=== PATIENT | male | born 1980 | race Caucasian/White ===

== ENCOUNTER 2017-01-11 12:24 | Inpatient (IN) | payer OTHER ==
[2017-01-11 13:24] VITALS: BMI 30.9
--- NOTE | 2017-01-11 14:29 | HP ---
CIWA Score - CIWA Score Nausea/Vomitin-No Nausea/No Vomiting Muscle Tremors: 4-Moderate,w/Arms Extend Anxiety: 3 Agitation: 4-Moderately Restless Paroxysmal Sweats: 3 Orientation: 0-Oriented Tacttile Disturbances: 0-None Auditory Disturbances: 0-None Visual Disturbances: 0-None Headache: 1-Very Mild CIWA-Ar Total Score: 15 Admission ROS BHS - HPI Chief Complaint: I need to detox off the benzodiazapine. Allergies/Adverse Reactions: Allergies Allergy/AdvReac Type Severity Reaction Status Date / Time No Known Allergies Allergy Verified 01/11/17 13:37 History of Present Illness: pt is a 36yr old male with a history of benzodiazapine dependence seeking detox for treatment. pt is on a mmtp program received 100mg today; pending verification. Exam Limitations: No Limitations - Ebola screening Have you traveled outside of the country in the last 21 days: No Have you had contact with anyone from an Ebola affected area: No Have you been sick,other than usual withdrawal symptoms: No Do you have a fever: No - Review of Systems Constitutional: Diaphoresis, Loss of Appetite, Night Sweats, Changes in sleep EENT: reports: Tearing Respiratory: reports: No Symptoms reported Cardiac: reports: No Symptoms Reported GI: reports: Poor Appetite, Poor Fluid Intake : reports: No Symptoms Reported Musculoskeletal: reports: No Symptoms Reported Integumentary: reports: Flushing, Sweating Neuro: reports: Tingling, Tremors Endocrine: reports: Excessive Sweating, Flushing, Intolerance to Cold, Intolerance to Heat Hematology: reports: No Symptoms Reported Psychiatric: reports: Judgement Intact, Mood/Affect Appropiate, Orientated x3, Agitated, Anxious Other Systems: Reviewed and Negative Patient History - Patient Medical History Hx Anemia: No Hx Asthma: Yes Hx Chronic Obstructive Pulmonary Disease (COPD): No Hx Cancer: No Hx Cardiac Disorders: No Hx Congestive Heart Failure: No Hx Hypertension: No Hx Hypercholesterolemia: No Hx Pacemaker: No HX Cerebrovascular Accident: No Hx Seizures: No Hx Dementia: No Hx Diabetes: Yes (IDDM) Hx Gastrointestinal Disorders: No Hx Liver Disease: No Hx Genitourinary Disorders: No Hx Sexually Transmitted Disorders: No Hx Renal Disease (ESRD): No Hx Thyroid Disease: No Hx Human Immunodeficiency Virus (HIV): No (negative) Hx Hepatitis C: No (negative) Hx Depression: No Hx Suicide Attempt: No (denies) Hx Bipolar Disorder: No Hx Schizophrenia: No Other Medical History: anxiety - Patient Surgical History Past Surgical History: Yes Other Surgical History: L mandible fx in 2006 R cheekbone fx - PPD History Previous Implant?: Yes Documented Results: Negative w/o proof Implanted On Prior R Admission?: No Date: 07/09/15 PPD to be Administered?: Yes - Reproductive History Patient is a Female of Child Bearing Age (11 -55 yrs old): No - Smoking Cessation Smoking history: Never smoked Have you smoked in the past 12 months: No Hx Chewing Tobacco Use: No Initiated information on smoking cessation: No - Substance & Tx. History Hx Alcohol Use: No Hx Substance Use: Yes Substance Use Type: Prescribed, Tranquilizers Hx Substance Use Treatment: Yes - Substances Abused Alprazolam (Xanax) Route: Oral Frequency: Daily Amount used: 8mg Age of first use: 25 Date of Last Use: 01/11/17 Family Disease History - Family Disease History Family History: Denies Admission Physical Exam S - Vital Signs Vital Signs: Vital Signs - 24 hr 01/11/17 13:22 Temperature 96.4 F L Pulse Rate 102 H Respiratory 19 Rate Blood Pressure 142/91 - Physical General Appearance: Yes: Appropriately Dressed, Moderate Distress, Tremorous, Irritable, Sweating, Anxious HEENTM: Yes: Normal Voice, Rhinorrhea Respiratory: Yes: Lungs Clear, Normal Breath Sounds, No Respiratory Distress Neck: Yes: No masses,lesions,Nodules Breast: Yes: Within Normal Limits Cardiology: Yes: Regular Rhythm, Regular Rate, S1, S2 Abdominal: Yes: Normal Bowel Sounds, Non Tender, Soft Genitourinary: Yes: Within Normal Limits Back: Yes: Normal Inspection Extremities: Yes: Normal Capillary Refill, Normal Inspection, Tremors Neurological: Yes: Fully Oriented, Alert, Normal Response Integumentary: Yes: Normal Color, Diaphoresis Lymphatic: Yes: Within Normal Limits - Diagnostic (1) Methadone maintenance therapy patient Current Visit: Yes Status: Chronic Comment: received dose of 100mg today; pending verification. (2) Sedative, hypnotic or anxiolytic dependence with withdrawal, uncomplicated Current Visit: Yes Status: Chronic (3) Insulin dependent diabetes mellitus Current Visit: Yes Status: Chronic Comment: last BGM 284 Cleared for Admission BHS - Detox or Rehab BHS Level of Care: Medically Managed Detox Regimen/Protocol: Valium [facility] Breath Alcohol Content Breath Alcohol Content: 0 Urine Drug Screen - Results Drug Screen Negative: No Urine Drug Screen Results: BZO-Benzodiazepines, MTD-Methadone
[2017-01-11] MEDS ORDERED: hydrOXYzine PAMOATE 50 MG CAPSULE (FP) PO PRN (14:38)
[2017-01-11] MEDS ORDERED: P-EPHED 60MG/TRIPROLIDI 2.5MG TABLET PO PRN (14:38)
[2017-01-11] MEDS ORDERED: MAGNESIUM HYDROX 2400MG/30ML ORAL SUSPENSION 30 ML CUP PO PRN (14:38)
[2017-01-11] MEDS ORDERED: IBUPROFEN 400 MG TABLET (FP) PO PRN (14:38)
[2017-01-11] MEDS ORDERED: MENTHOL/PHENOL 1 EACH UD MM PRN (14:38)
[2017-01-11] MEDS ORDERED: LOPERAMIDE HCL 2 MG CAPSULE PO PRN (14:38)
[2017-01-11] MEDS ORDERED: guaiFENesin/D-METHORPHAN HB 10 ML UNIT-DOSE CUPS PO PRN (14:38)
[2017-01-11] MEDS ORDERED: MAGNESIUM CITRATE 300 ML BOTTLE PO PRN (14:38)
[2017-01-11] MEDS ORDERED: MAG HYDROX/AL HYDROX/SIMETH 30 ML UNIT-DOSE CUP PO PRN (14:38)
[2017-01-11] MEDS ORDERED: ACETAMINOPHEN 325 MG TABLET (FP) PO PRN (15:11)
[2017-01-11] MEDS ORDERED: diazePAM 5 MG TABLET PO ONE (15:11)
[2017-01-11] MEDS: diazePAM 5 MG TABLET PO SCH ×2 (15:44→22:49)
[2017-01-11] MEDS ORDERED: INSULIN (NOVOLOG) ASPART 100 UNITS/ML 10ML VIAL ONE (16:56)
[2017-01-11] MEDS: INSULIN SLIDING SCALE (NOVOLOG) 1 VIAL SQ SCH (17:07)
--- NOTE | 2017-01-11 17:35 | CONSULT ---
[facility] Psychiatric Consult - Data Date of interview: 01/11/17 Admission source: [facility] Identifying data: Readmission to [facility] for this 36 y/o male seeking detox treatment on for opioid and benzodizepine (xanax) dependence.Patient is without children,domiciled,unemployed and dependent on occasional jobs. Substance Abuse History: - Smoking Cessation. Smoking history: Never smoked. Have you smoked in the past 12 months: No. Hx Chewing Tobacco Use: No. Initiated information on smoking cessation: No. - Substance & Tx. History. Hx Alcohol Use: No. Hx Substance Use: Yes. Substance Use Type: Prescribed, Tranquilizers. Hx Substance Use Treatment: Yes. - Substances Abused. Alprazolam (Xanax). Route: Oral. Frequency: Daily. Amount used: 8mg. Age of first use: 25. Date of Last Use: 01/11/17. Confirmed by patient. Medical History: Insulin-dependent diabetes mellitus,bronchial asthma,and a history of orthosurgery for fracture of left mandible/right cheekbone (2006). Psychiatric History: Patient denies history of psychiatric hospitalizations.Mr Schilling reports the diagnosis of ADHD for which he gets psychostimulat medication (Adderall).He,however,declares his intention to abstain from that drug during his treatment on .Chronic insomnia is endorsed as the most pressing issue and the patient requests seroquel at bedtime (from favorable previous experience with that medication).Mr Schilling is currently on methadone maintenance (100 mg/day).No reported history of suicide attempts. Physical/Sexual Abuse/Trauma History: Patient denies. Additional Comment: Urine Drug Screen Results: BZO-Benzodiazepines, MTD- Methadone.Noted. Mental Status Exam - Mental Status Exam Alert and Oriented to: Time, Place, Person Cognitive Function: Good Patient Appearance: Well Groomed Mood: Hopeful, Euthymic Affect: Appropriate, Normal Range Patient Behavior: Fatigued, Appropriate, Cooperative Speech Pattern: Clear, Appropriate Voice Loudness: Normal Thought Process: Intact, Goal Oriented Thought Disorder: Not Present Hallucinations: Denies Suicidal Ideation: Denies Homicidal Ideation: Denies Insight/Judgement: Poor Sleep: Poorly, Difficulty falling asleep Appetite: Good Muscle strength/Tone: Normal Gait/Station: Normal Psychiatric Findings - Problem List ([place] 1, 2,3) (1) Sedative, hypnotic or anxiolytic dependence with withdrawal, uncomplicated Current Visit: Yes Status: Acute (2) Opioid dependence on agonist therapy Current Visit: Yes Status: Acute (3) Substance induced mood disorder Current Visit: Yes Status: Acute (4) ADHD (attention deficit hyperactivity disorder) Current Visit: Yes Status: Chronic Comment: Self-report.Patient declines to take psychostimulant during this hospital course. (5) Insulin dependent diabetes mellitus Current Visit: Yes Status: Chronic Comment: last BGM 284 (6) Insomnia Current Visit: Yes Status: Acute - Initial Treatment Plan Initial Treatment Plan: Psychoeducation.Detoxification.Seroquel 100 mg po hs.Side effects/benefits discussed with the patient.He agrees with this careplan.Observation.
[2017-01-11] MEDS: HYDROCORTISONE 1% TOPICAL CREAM 30 GM TUBE TP SCH ×2 (18:18→22:48)
[2017-01-11 19:27] LABS: URINE APPEARANCE CLEAR; URINE BILIRUBIN NEGATIVE (NEGATIVE); URINE BLOOD NEGATIVE (NEGATIVE); URINE COLOR AMBER; URINE GLUCOSE (UA) 3+ (NEGATIVE); URINE KETONE TRACE (NEGATIVE); URINE NITRITE NEGATIVE (NEGATIVE); URINE PROTEIN NEGATIVE (NEGATIVE); URINE UROBILINOGEN 2.0 E.U/dl E.U./dl (0.2-1.0)
[2017-01-11 19:29] LABS: URINE LEUK ESTERASE TRACE (NEGATIVE)
[2017-01-11] MEDS: THIAMINE HCL 100 MG TABLET (FP) PO SCH (22:48)
[2017-01-11] MEDS: QUEtiapine FUMARATE 100 MG TABLET (FP) PO SCH (22:49)
[2017-01-11] MEDS: diphenhydrAMINE HCL 50 MG CAPSULE PO PRN (22:50)
[2017-01-12] MEDS: diazePAM 5 MG TABLET PO SCH ×3 (05:40→23:02)
[2017-01-12] MEDS ORDERED: INSULIN (NOVOLOG) ASPART 100 UNITS/ML 10ML VIAL ONE ×2 (06:28→11:11)
[2017-01-12] MEDS: INSULIN SLIDING SCALE (NOVOLOG) 1 VIAL SQ SCH ×3 (07:27→16:56)
[2017-01-12] MEDS: INSULIN DETEMIR 100 UNITS/ML MDV SQ SCH (07:27)
[2017-01-12] MEDS ORDERED: METHADONE HCL 10 MG TABLET PO SCH (08:30)
[2017-01-12] MEDS ORDERED: METHADONE HCL 40 MG DISPERSABLE TABLET ONE (08:42)
[2017-01-12] MEDS ORDERED: METHADONE HCL 10 MG TABLET ONE (08:42)
[2017-01-12] MEDS: METHADONE 80 MG, METHADONE 20 MG PO SCH (08:44)
[2017-01-12 10:11] LABS: MCH 30.6 pg (25.7-33.7); MCHC 32.7 g/dl (32.0-35.9); MEAN CELL VOLUME 93.5 fl (80-96); MEAN PLT VOLUME 11.5 fl (7.5-11.1); PLATELET COUNT 180 K/MM3 (134-434); RDW 16.6 % (11.9-15.9); WHITE BLOOD COUNT 9.1 K/mm3 (4.0-10.0)
[2017-01-12 10:38] LABS: ALBUMIN 3.9 g/dl (3.4-5.0); ALK PHOS 65 U/L (45-117); ANION GAP 9 (8-16); BILIRUBIN,TOTAL 0.7 mg/dL (0.2-1.0); CALCIUM 8.9 mg/dL (8.5-10.1); CO2 31 mmol/L (21-32); CREATININE 1.1 mg/dL (0.7-1.3); GLUCOSE,RANDOM 221 mg/dL (74-106); SGOT/AST 15 U/L (15-37); SGPT/ALT 24 U/L (12-78); TOT PROT 6.9 g/dl (6.4-8.2)
[2017-01-12] MEDS: HYDROCORTISONE 1% TOPICAL CREAM 30 GM TUBE TP SCH ×4 (10:55→23:01)
[2017-01-12] MEDS: PRENATAL VITAMINS W/ FOLIC ACID TABLET (FP) PO SCH (10:55)
[2017-01-12] MEDS: diazePAM 5 MG TABLET PO PRN (10:56)
--- NOTE | 2017-01-12 13:41 | PN ---
S CIWA - CIWA Score Nausea/Vomitin-No Nausea/No Vomiting Muscle Tremors: 4-Moderate,w/Arms Extend Anxiety: 4-Mod. Anxious/Guarded Agitation: 3 Paroxysmal Sweats: 3 Orientation: 0-Oriented Tacttile Disturbances: 0-None Auditory Disturbances: 0-None Visual Disturbances: 0-None Headache: 0-None Present CIWA-Ar Total Score: 14 BHS Progress Note (SOAP) Subjective: Anxiety,tremors,sweating,interrupted sleep,restless Objective: 01/12/17 13:39 Vital Signs - 8 hr 01/12/17 01/12/17 06:50 10:25 Temperature 96.1 F L 96.6 F L Pulse Rate 92 H 89 Respiratory 18 20 Rate Blood Pressure 140/86 136/88 Laboratory Tests 01/11/17 01/11/17 01/11/17 13:48 14:00 16:29 WBC RBC Hgb Hct MCV MCHC RDW Plt Count MPV Sodium Potassium Chloride Carbon Dioxide Anion Gap BUN Creatinine Creat Clearance w eGFR POC Glucometer 284 303 Random Glucose Calcium Total Bilirubin AST ALT Alkaline Phosphatase Total Protein Albumin Urine Color Jaki Urine Appearance Clear Urine pH 5.0 Ur Specific [place] 1.030 Urine Protein Negative Urine Glucose (UA) 3+ H Urine Ketones Trace H Urine Blood Negative Urine Nitrite Negative Urine Bilirubin Negative Urine Urobilinogen 2.0 e.u/dl Ur Leukocyte Esterase Trace H RPR Titer 01/12/17 01/12/17 01/12/17 05:43 06:00 06:00 WBC 9.1 RBC 4.99 Hgb 15.3 D Hct 46.7 MCV 93.5 MCHC 32.7 RDW 16.6 H D Plt Count 180 D MPV 11.5 H D Sodium 139 Potassium 4.1 Chloride 99 Carbon Dioxide 31 Anion Gap 9 BUN 11 D Creatinine 1.1 D Creat Clearance w eGFR > 60 POC Glucometer 155 Random Glucose 221 H Calcium 8.9 Total Bilirubin 0.7 D AST 15 D ALT 24 Alkaline Phosphatase 65 D Total Protein 6.9 Albumin 3.9 D Urine Color Urine Appearance Urine pH Ur Specific [place] Urine Protein Urine Glucose (UA) Urine Ketones Urine Blood Urine Nitrite Urine Bilirubin Urine Urobilinogen Ur Leukocyte Esterase RPR Titer 01/12/17 01/12/17 06:00 11:08 WBC RBC Hgb Hct MCV MCHC RDW Plt Count MPV Sodium Potassium Chloride Carbon Dioxide Anion Gap BUN Creatinine Creat Clearance w eGFR POC Glucometer 162 Random Glucose Calcium Total Bilirubin AST ALT Alkaline Phosphatase Total Protein Albumin Urine Color Urine Appearance Urine pH Ur Specific [place] Urine Protein Urine Glucose (UA) Urine Ketones Urine Blood Urine Nitrite Urine Bilirubin Urine Urobilinogen Ur Leukocyte Esterase RPR Titer Nonreactive labs noted Assessment: 01/12/17 13:40 withdrawal sx. Plan: continue detox
--- NOTE | 2017-01-12 16:19 | EKG ---
Test Reason : Blood Pressure : / mmHG Vent. Rate : 078 BPM Atrial Rate : 078 BPM P-R Int : 138 ms QRS Dur : 098 ms QT Int : 374 ms P-R-T Axes : 069 013 048 degrees QTc Int : 426 ms NORMAL SINUS RHYTHM NORMAL ECG NO PREVIOUS ECGS AVAILABLE Confirmed by EDGAR CEBALLOS MD ([id number]) on 01/12/2017 4:18:43 PM Referred By: Confirmed By:EDGAR CEBALLOS MD
[2017-01-12] MEDS: THIAMINE HCL 100 MG TABLET (FP) PO SCH (23:01)
[2017-01-12] MEDS: QUEtiapine FUMARATE 100 MG TABLET (FP) PO SCH (23:02)
[2017-01-12] MEDS: diphenhydrAMINE HCL 50 MG CAPSULE PO PRN (23:02)
[2017-01-13] MEDS ORDERED: METHADONE HCL 10 MG TABLET ONE (01:24)
[2017-01-13] MEDS ORDERED: METHADONE HCL 40 MG DISPERSABLE TABLET ONE (01:24)
[2017-01-13] MEDS: METHADONE 80 MG, METHADONE 20 MG PO SCH (05:24)
[2017-01-13] MEDS: INSULIN SLIDING SCALE (NOVOLOG) 1 VIAL SQ SCH ×3 (07:53→17:04)
[2017-01-13] MEDS: INSULIN DETEMIR 100 UNITS/ML MDV SQ SCH (07:53)
[2017-01-13] MEDS: diazePAM 5 MG TABLET PO SCH ×2 (10:40→22:50)
[2017-01-13] MEDS: PRENATAL VITAMINS W/ FOLIC ACID TABLET (FP) PO SCH (10:40)
[2017-01-13] MEDS: HYDROCORTISONE 1% TOPICAL CREAM 30 GM TUBE TP SCH ×4 (10:40→22:50)
[2017-01-13] MEDS ORDERED: INSULIN (NOVOLOG) ASPART 100 UNITS/ML 10ML VIAL ONE ×2 (11:13→16:53)
--- NOTE | 2017-01-13 12:14 | PN ---
[facility] CIWA - CIWA Score Nausea/Vomitin-No Nausea/No Vomiting Muscle Tremors: 4-Moderate,w/Arms Extend Anxiety: 4-Mod. Anxious/Guarded Agitation: 4-Moderately Restless Paroxysmal Sweats: 1-Minimal Palms Moist Orientation: 0-Oriented Tacttile Disturbances: 3-Moderate Itch/Numb/Burn Auditory Disturbances: 0-None Visual Disturbances: 0-None Headache: 0-None Present CIWA-Ar Total Score: 16 BHS Progress Note (SOAP) Subjective: ANXIETY,SWEATS, INTERMITTENT SLEEP. Objective: 01/13/17 12:13 Vital Signs Temperature 98.1 F 01/13/17 10:00 Pulse Rate 94 H 01/13/17 10:00 Respiratory Rate 20 01/13/17 10:00 Blood Pressure 133/88 01/13/17 10:00 O2 Sat by Pulse Oximetry (%) Laboratory Last Values WBC 9.1 K/mm3 (4.0-10.0) 01/12/17 06:00 RBC 4.99 M/mm3 (4.00-5.60) 01/12/17 06:00 Hgb 15.3 GM/dL (11.7-16.9) D 01/12/17 06:00 Hct 46.7 % (35.4-49) 01/12/17 06:00 MCV 93.5 fl (80-96) 01/12/17 06:00 MCHC 32.7 g/dl (32.0-35.9) 01/12/17 06:00 RDW 16.6 % (11.9-15.9) H D 01/12/17 06:00 Plt Count 180 K/MM3 (134-434) D 01/12/17 06:00 MPV 11.5 fl (7.5-11.1) H D 01/12/17 06:00 Sodium 139 mmol/L (136-145) 01/12/17 06:00 Potassium 4.1 mmol/L (3.5-5.1) 01/12/17 06:00 Chloride 99 mmol/L (98-107) 01/12/17 06:00 Carbon Dioxide 31 mmol/L (21-32) 01/12/17 06:00 Anion Gap 9 (8-16) 01/12/17 06:00 BUN 11 mg/dL (7-18) D 01/12/17 06:00 Creatinine 1.1 mg/dL (0.7-1.3) D 01/12/17 06:00 Creat Clearance w eGFR > 60 (>60) 01/12/17 06:00 POC Glucometer 282 UNITS (()) 01/13/17 11:11 Random Glucose 221 mg/dL (74-106) H 01/12/17 06:00 Calcium 8.9 mg/dL (8.5-10.1) 01/12/17 06:00 Total Bilirubin 0.7 mg/dL (0.2-1.0) D 01/12/17 06:00 AST 15 U/L (15-37) D 01/12/17 06:00 ALT 24 U/L (12-78) 01/12/17 06:00 Alkaline Phosphatase 65 U/L (45-117) D 01/12/17 06:00 Total Protein 6.9 g/dl (6.4-8.2) 01/12/17 06:00 Albumin 3.9 g/dl (3.4-5.0) D 01/12/17 06:00 Urine Color Jaki 01/11/17 14:00 Urine Appearance Clear 01/11/17 14:00 Urine pH 5.0 (5.0-8.0) 01/11/17 14:00 Ur Specific [place] 1.030 (1.001-1.035) 01/11/17 14:00 Urine Protein Negative (NEGATIVE) 01/11/17 14:00 Urine Glucose (UA) 3+ (NEGATIVE) H 01/11/17 14:00 Urine Ketones Trace (NEGATIVE) H 01/11/17 14:00 Urine Blood Negative (NEGATIVE) 01/11/17 14:00 Urine Nitrite Negative (NEGATIVE) 01/11/17 14:00 Urine Bilirubin Negative (NEGATIVE) 01/11/17 14:00 Urine Urobilinogen 2.0 e.u/dl E.U./dl (0.2-1.0) 01/11/17 14:00 Ur Leukocyte Esterase Trace (NEGATIVE) H 01/11/17 14:00 RPR Titer Nonreactive (NONREACTIVE) 01/12/17 06:00 Assessment: 01/13/17 12:13 WITHDRAWAL SX Plan: CONTINUE DETOX
[2017-01-13] MEDS: QUEtiapine FUMARATE 100 MG TABLET (FP) PO SCH (22:50)
[2017-01-13] MEDS: THIAMINE HCL 100 MG TABLET (FP) PO SCH (22:50)
[2017-01-13] MEDS: diphenhydrAMINE HCL 50 MG CAPSULE PO PRN (22:51)
[2017-01-14] MEDS ORDERED: METHADONE HCL 40 MG DISPERSABLE TABLET ONE (04:30)
[2017-01-14] MEDS ORDERED: METHADONE HCL 10 MG TABLET ONE (04:30)
[2017-01-14] MEDS: diazePAM 5 MG TABLET PO PRN (05:40)
[2017-01-14] MEDS: METHADONE 80 MG, METHADONE 20 MG PO SCH (05:40)
[2017-01-14] MEDS ORDERED: INSULIN (NOVOLOG) ASPART 100 UNITS/ML 10ML VIAL ONE ×3 (07:04→17:19)
[2017-01-14] MEDS: INSULIN DETEMIR 100 UNITS/ML MDV SQ SCH (07:15)
[2017-01-14] MEDS: INSULIN SLIDING SCALE (NOVOLOG) 1 VIAL SQ SCH ×3 (07:16→17:30)
[2017-01-14] MEDS: PRENATAL VITAMINS W/ FOLIC ACID TABLET (FP) PO SCH (10:28)
[2017-01-14] MEDS: diazePAM 5 MG TABLET PO SCH ×2 (10:28→22:53)
[2017-01-14] MEDS: HYDROCORTISONE 1% TOPICAL CREAM 30 GM TUBE TP SCH ×4 (10:29→22:52)
--- NOTE | 2017-01-14 16:40 | PN ---
BHS Progress Note (SOAP) Subjective: Fatigue, Tremors. Objective: PT A & O X 3. 01/14/17 16:38 Vital Signs Temperature 97.2 F L 01/14/17 15:05 Pulse Rate 89 01/14/17 15:05 Respiratory Rate 18 01/14/17 15:05 Blood Pressure 138/90 01/14/17 15:05 O2 Sat by Pulse Oximetry (%) Laboratory Last Values WBC 9.1 K/mm3 (4.0-10.0) 01/12/17 06:00 RBC 4.99 M/mm3 (4.00-5.60) 01/12/17 06:00 Hgb 15.3 GM/dL (11.7-16.9) D 01/12/17 06:00 Hct 46.7 % (35.4-49) 01/12/17 06:00 MCV 93.5 fl (80-96) 01/12/17 06:00 MCHC 32.7 g/dl (32.0-35.9) 01/12/17 06:00 RDW 16.6 % (11.9-15.9) H D 01/12/17 06:00 Plt Count 180 K/MM3 (134-434) D 01/12/17 06:00 MPV 11.5 fl (7.5-11.1) H D 01/12/17 06:00 Sodium 139 mmol/L (136-145) 01/12/17 06:00 Potassium 4.1 mmol/L (3.5-5.1) 01/12/17 06:00 Chloride 99 mmol/L (98-107) 01/12/17 06:00 Carbon Dioxide 31 mmol/L (21-32) 01/12/17 06:00 Anion Gap 9 (8-16) 01/12/17 06:00 BUN 11 mg/dL (7-18) D 01/12/17 06:00 Creatinine 1.1 mg/dL (0.7-1.3) D 01/12/17 06:00 Creat Clearance w eGFR > 60 (>60) 01/12/17 06:00 POC Glucometer 258 UNITS (()) 01/14/17 11:41 Random Glucose 221 mg/dL (74-106) H 01/12/17 06:00 Calcium 8.9 mg/dL (8.5-10.1) 01/12/17 06:00 Total Bilirubin 0.7 mg/dL (0.2-1.0) D 01/12/17 06:00 AST 15 U/L (15-37) D 01/12/17 06:00 ALT 24 U/L (12-78) 01/12/17 06:00 Alkaline Phosphatase 65 U/L (45-117) D 01/12/17 06:00 Total Protein 6.9 g/dl (6.4-8.2) 01/12/17 06:00 Albumin 3.9 g/dl (3.4-5.0) D 01/12/17 06:00 Urine Color Jaki 01/11/17 14:00 Urine Appearance Clear 01/11/17 14:00 Urine pH 5.0 (5.0-8.0) 01/11/17 14:00 Ur Specific [place] 1.030 (1.001-1.035) 01/11/17 14:00 Urine Protein Negative (NEGATIVE) 01/11/17 14:00 Urine Glucose (UA) 3+ (NEGATIVE) H 01/11/17 14:00 Urine Ketones Trace (NEGATIVE) H 01/11/17 14:00 Urine Blood Negative (NEGATIVE) 01/11/17 14:00 Urine Nitrite Negative (NEGATIVE) 01/11/17 14:00 Urine Bilirubin Negative (NEGATIVE) 01/11/17 14:00 Urine Urobilinogen 2.0 e.u/dl E.U./dl (0.2-1.0) 01/11/17 14:00 Ur Leukocyte Esterase Trace (NEGATIVE) H 01/11/17 14:00 RPR Titer Nonreactive (NONREACTIVE) 01/12/17 06:00 LABS NOTED. Assessment: 01/14/17 16:39 WITHDRAWAL SYMPTOMS. Plan: CONTINUE DETOX. ADVISED PT. TO FOLLOW-UP WITH ASSOCIATE PROPERTY MANAGER / REHAB MEDICAL PROVIDER AFTER DISCHARGE FROM DETOX FOR GENERAL MEDICAL ASSESSMENT AND FOR ABNORMAL LAB VALUES.
[2017-01-14] MEDS ORDERED: QUEtiapine FUMARATE 50 MG TABLET ONE (21:36)
[2017-01-14] MEDS: THIAMINE HCL 100 MG TABLET (FP) PO SCH (22:52)
[2017-01-14] MEDS: diphenhydrAMINE HCL 50 MG CAPSULE PO PRN (22:53)
[2017-01-14] MEDS: QUEtiapine FUMARATE 100 MG TABLET (FP) PO SCH (22:53)
[2017-01-15] MEDS ORDERED: METHADONE HCL 10 MG TABLET ONE (04:53)
[2017-01-15] MEDS ORDERED: METHADONE HCL 40 MG DISPERSABLE TABLET ONE (04:53)
[2017-01-15] MEDS: METHADONE 80 MG, METHADONE 20 MG PO SCH (05:14)
[2017-01-15] MEDS ORDERED: INSULIN (NOVOLOG) ASPART 100 UNITS/ML 10ML VIAL ONE (06:29)
[2017-01-15 06:35] VITALS: BP 112/84; PULSE 95; TEMP 97.9
[2017-01-15] MEDS: INSULIN SLIDING SCALE (NOVOLOG) 1 VIAL SQ SCH (07:56)
[2017-01-15] MEDS: INSULIN DETEMIR 100 UNITS/ML MDV SQ SCH (07:56)
--- NOTE | 2017-01-15 08:45 | DS ---
[facility] Detox Discharge Summary Admission Date: 01/11/17 Discharge Date: 01/15/17 - History Present History: Sedative Dependence, MMTP Pertinent Past History: IDDM ADHD - Physical Exam Results Vital Signs: Vital Signs Temperature 97.9 F 01/15/17 06:34 Pulse Rate 95 H 01/15/17 06:34 Respiratory Rate 18 01/15/17 06:34 Blood Pressure 112/84 01/15/17 06:34 O2 Sat by Pulse Oximetry (%) Pertinent Admission Physical Exam Findings: Withdrawal sx. Laboratory Last Values WBC 9.1 K/mm3 (4.0-10.0) 01/12/17 06:00 RBC 4.99 M/mm3 (4.00-5.60) 01/12/17 06:00 Hgb 15.3 GM/dL (11.7-16.9) D 01/12/17 06:00 Hct 46.7 % (35.4-49) 01/12/17 06:00 MCV 93.5 fl (80-96) 01/12/17 06:00 MCHC 32.7 g/dl (32.0-35.9) 01/12/17 06:00 RDW 16.6 % (11.9-15.9) H D 01/12/17 06:00 Plt Count 180 K/MM3 (134-434) D 01/12/17 06:00 MPV 11.5 fl (7.5-11.1) H D 01/12/17 06:00 Sodium 139 mmol/L (136-145) 01/12/17 06:00 Potassium 4.1 mmol/L (3.5-5.1) 01/12/17 06:00 Chloride 99 mmol/L (98-107) 01/12/17 06:00 Carbon Dioxide 31 mmol/L (21-32) 01/12/17 06:00 Anion Gap 9 (8-16) 01/12/17 06:00 BUN 11 mg/dL (7-18) D 01/12/17 06:00 Creatinine 1.1 mg/dL (0.7-1.3) D 01/12/17 06:00 Creat Clearance w eGFR > 60 (>60) 01/12/17 06:00 POC Glucometer 162 UNITS (()) 01/15/17 05:16 Random Glucose 221 mg/dL (74-106) H 01/12/17 06:00 Calcium 8.9 mg/dL (8.5-10.1) 01/12/17 06:00 Total Bilirubin 0.7 mg/dL (0.2-1.0) D 01/12/17 06:00 AST 15 U/L (15-37) D 01/12/17 06:00 ALT 24 U/L (12-78) 01/12/17 06:00 Alkaline Phosphatase 65 U/L (45-117) D 01/12/17 06:00 Total Protein 6.9 g/dl (6.4-8.2) 01/12/17 06:00 Albumin 3.9 g/dl (3.4-5.0) D 01/12/17 06:00 Urine Color Jaki 01/11/17 14:00 Urine Appearance Clear 01/11/17 14:00 Urine pH 5.0 (5.0-8.0) 01/11/17 14:00 Ur Specific [place] 1.030 (1.001-1.035) 01/11/17 14:00 Urine Protein Negative (NEGATIVE) 01/11/17 14:00 Urine Glucose (UA) 3+ (NEGATIVE) H 01/11/17 14:00 Urine Ketones Trace (NEGATIVE) H 01/11/17 14:00 Urine Blood Negative (NEGATIVE) 01/11/17 14:00 Urine Nitrite Negative (NEGATIVE) 01/11/17 14:00 Urine Bilirubin Negative (NEGATIVE) 01/11/17 14:00 Urine Urobilinogen 2.0 e.u/dl E.U./dl (0.2-1.0) 01/11/17 14:00 Ur Leukocyte Esterase Trace (NEGATIVE) H 01/11/17 14:00 RPR Titer Nonreactive (NONREACTIVE) 01/12/17 06:00 labs noted - Treatment Hospital Course: Detox Protocol Followed, Detoxed Safely, Responded well, Discharged Condition Good, Rehab Referral Accepted - Medication Discharge Medications: Ambulatory Orders Insulin Glargine,Hum.rec.anlog [Lantus Solostar PEN (NF)] 40 units SQ AM Insulin Lispro [Humalog] 10 unit SQ AC 07/07/15 - Diagnosis (1) Opioid dependence on agonist therapy Current Visit: Yes Status: Acute (2) Sedative, hypnotic or anxiolytic dependence with withdrawal, uncomplicated Current Visit: Yes Status: Acute (3) Substance induced mood disorder Current Visit: Yes Status: Acute (4) ADHD (attention deficit hyperactivity disorder) Current Visit: Yes Status: Chronic (5) Insulin dependent diabetes mellitus Current Visit: Yes Status: Chronic - AMA Did Patient Leave Against Medical Advice: No
[2017-01-15] MEDS ORDERED: diazePAM 5 MG TABLET PO SCH (10:00)
[2017-01-15] MEDS: HYDROCORTISONE 1% TOPICAL CREAM 30 GM TUBE TP SCH (11:42)
[2017-01-15] MEDS: PRENATAL VITAMINS W/ FOLIC ACID TABLET (FP) PO SCH (11:42)
== END 2017-01-15 09:55 | disposition home or self-care (01) | DRG 773 ==
LOC: YASAS 12:24 → Y3N 14:36
PROVIDERS: ADMIT Internal Medicine; ATTEND Internal Medicine
PROC: HZ2ZZZZ Detoxification Services for Substance Abuse Treatment (ICD-10-PCS; principal; 2017-01-15)
DX: F11.23 Opioid dependence with withdrawal (principal); F13.20 Sedative, hypnotic or anxiolytic dependence, uncomplicated; F19.24 Other psychoactive substance dependence with psychoactive substance-induced mood disorder; F90.9 Attention-deficit hyperactivity disorder, unspecified type; G47.00 Insomnia, unspecified; E10.9 Type 1 diabetes mellitus without complications; Z79.4 Long term (current) use of insulin
CPT/HCPCS: 36415; 80053; 81003; 81015; 85027; 86593; 93005; 93010

== ENCOUNTER 2017-09-06 21:43 | Emergency (ER) | payer OTHER ==
[2017-09-06 21:48] VITALS: BP 140/90; PULSE 90; TEMP 97.5; BMI 27.2
--- NOTE | 2017-09-06 22:20 | PDOC ---
History of Present Illness - General Chief Complaint: Pain Stated Complaint: R FOOT PAIN Time Seen by Provider: 09/06/17 21:52 - History of Present Illness Initial Comments: This 37-year-old man presents several hours after turning his right foot while at work. Patient was wearing a construction boot and everted his right foot. He had some pain initially but continued to work. Tonight, pain became much worse and he had trouble bearing weight. No previous history of right or ankle injury. Patient did not fall and injure any area of his body with the initial turning of his foot/ankle. He denies paresthesias/numbness. Past History - Past Medical History Allergies/Adverse Reactions: Allergies Allergy/AdvReac Type Severity Reaction Status Date / Time No Known Allergies Allergy Verified 01/11/17 13:37 Home Medications: Ambulatory Orders Insulin Glargine,Hum.rec.anlog [Lantus Solostar PEN (NF)] 40 units SQ AM Insulin Lispro [Humalog] 10 unit SQ AC 07/07/15 Anemia: No Asthma: Yes Cancer: No Cardiac Disorders: No CVA: No COPD: No CHF: No Dementia: No Diabetes: Yes (IDDM) GI Disorders: No Disorders: No HTN: No Hypercholesterolemia: No Kidney Stones: No Liver Disease: No Seizures: No Thyroid Disease: No - Reproductive History Testicular Surgery: No - Suicide/Smoking/Psychosocial Hx Smoking History: Unknown if ever smoked Have you smoked in the past 12 months: No Number of Cigarettes Smoked Daily: 0 Information on smoking cessation initiated: No Hx Alcohol Use: No Drug/Substance Use Hx: No Substance Use Type: Prescribed, Tranquilizers Hx Substance Use Treatment: Yes Trauma Specific PMHX - Complaint Specific PMHX Arthritis: No Review of Systems - Review of Systems Able to Perform ROS?: Yes Comments:: GENERAL: HEAD: Normal with no signs of trauma. EYES: PERRLA, EOMI, sclera anicteric, conjunctiva clear. ENT: Ears normal, nares patent, oropharynx clear without exudates. Dry mucous membranes. NECK: Normal range of motion, supple without lymphadenopathy, JVD, or masses. LUNGS: Breath sounds equal, clear to auscultation bilaterally. No wheezes, and no crackles. HEART:Regular rate and rhythm, normal S1 and S2 without murmur, rub or gallop. ABDOMEN:.normal bowel sounds No guarding,tenderness or rebound.No masses No distention. EXTREMITIES: Right lower extremitymoderate edema/moderate tenderness mid lateral dorsal aspect of foot. No deformity seen Faint ecchymosis seen at the plantar surface; distal neurovascular functioning intact Strongly palpable pulse at midfoot; ankle nontender/nonedematous Remainder of the extremity exam is normal NEUROLOGICAL: Cranial nerves II through XII grossly intact. Normal speech. No focal neurological deficits. MUSCULOSKELETAL: Back non-tender to palpation, no CVA tenderness SKIN: Warm, Dry, normal turgor, no rashes or lesions noted. *Physical Exam - Vital Signs Last Vital Signs Temp Pulse Resp BP Pulse Ox 97.5 F L 90 14 140/90 99 09/06/17 21:45 09/06/17 21:45 09/06/17 21:45 09/06/17 21:45 09/06/17 21:45 ED Treatment Course - RADIOLOGY Radiology Studies Ordered: Category Date Time Status FOOT-RIGHT [RAD] Stat Radiology 09/06/17 22:00 Taken Progress Note - Progress Note Progress Note: Right foot x-ray shows nondisplaced horizontal fracture of the base of the fifth metatarsal consistent with Ayala fracture. Using Ortho-Glass material, short leg posterior splint fashioned and secured with Laz wraps. Neurovascular functioning intact after placement of the splint. Patient given crutches and crutch walking instruction given. Patient does not have an orthopedist. Maryam aldrich on-call: Referral information given to the patient. Patient does not want any nonsteroidal anti- inflammatories or analgesics. He should elevate the right leg as much as possible. Patient given work documentation: No work until seen by orthopedist. *DC/Admit/Observation/Transfer Diagnosis at time of Disposition: Fracture of fifth metatarsal bone of right foot Qualifiers: Encounter type: initial encounter Fracture type: closed Fracture alignment: nondisplaced Qualified Code(s): S92.354A - Nondisplaced fracture of fifth metatarsal bone, right foot, initial encounter for closed fracture - Discharge Dispostion Disposition: HOME Condition at time of disposition: Stable - Referrals Referrals: Richy Francisco MD [Staff Physician] - Call tomorrow - Patient Instructions Printed Discharge Instructions: Foot Fracture Additional Instructions: Keep splint in place Elevate foot (heart level or above) as much as possible Crutches for ambulation until seen by orthopedist Call [facility] group in AM to arrange follow-up within the next 2 days - Post Discharge Activity Forms/Work/School Notes: Back to Work
== END 2017-09-06 22:49 | disposition home or self-care (01) ==
LOC: FER 21:43
DX: S92.354A Nondisplaced fracture of fifth metatarsal bone, right foot, initial encounter for closed fracture (principal); X58.XXXA Exposure to other specified factors, initial encounter; Y93.89 Activity, other specified; Y92.9 Unspecified place or not applicable; Z79.4 Long term (current) use of insulin; E11.9 Type 2 diabetes mellitus without complications
CPT/HCPCS: 73630-TC-RT; 99282-25

== ENCOUNTER 2018-01-04 16:47 | Emergency (ER) | payer OTHER ==
--- NOTE | 2018-01-04 16:55 | PDOC ---
History of Present Illness - General History Source: Patient Exam Limitations: No Limitations - History of Present Illness Initial Comments: 01/04/18 17:07 The patient is a 37 year old male, with a significant past medical history of diabetes(BGL typically in the 200s) and asthma, who presents to the emergency department complaining of left greater toe pain, swelling, and erythema s/p stubbing his toe on a door approximately 2 weeks ago. Patient reports cutting his left greater toe 2 weeks ago, however, over the past 3 days he notes increased pain and swelling to the area. Two days ago, the patient reports he developed associated erythema to the dorsal aspect of the left greater toe. Patient reports a recent injury to his right foot several weeks ago, and states he had been applying a lot of pressure to his left toes. Patient reports visiting his PCP today out of concern of an infection to his toe, who suggested the patient come to the ED for further evaluation. Patient denies any associated fever or chills. He denies any nausea or vomiting. He denies any chest pain, shortness of breath, diaphoresis, or palpitations. Allergies: NKDA Past Surgical History: None reported Social History: Non smoker. No ETOH or recreational drug use. PCP: Dr. Schrader <Deejay Mcnulty - Last Filed: 01/04/18 17:07> <Attila Morgan - Last Filed: 01/04/18 17:23> - General Chief Complaint: Redness To Affected Area Stated Complaint: LEFT TOE REDNESS Time Seen by Provider: 01/04/18 16:54 Past History <Deejay Mcnulty - Last Filed: 01/04/18 17:07> - Past Medical History Anemia: No Asthma: Yes Cancer: No Cardiac Disorders: No CVA: No COPD: No CHF: No Dementia: No Diabetes: Yes (IDDM) GI Disorders: No Disorders: No HTN: No Hypercholesterolemia: No Kidney Stones: No Liver Disease: No Seizures: No Thyroid Disease: No - Reproductive History Testicular Surgery: No - Suicide/Smoking/Psychosocial Hx Smoking History: Unknown if ever smoked Have you smoked in the past 12 months: No Number of Cigarettes Smoked Daily: 0 Hx Alcohol Use: No Drug/Substance Use Hx: No Substance Use Type: Prescribed, Tranquilizers Hx Substance Use Treatment: Yes <Attila Morgan - Last Filed: 01/04/18 17:23> - Past Medical History Allergies/Adverse Reactions: Allergies Allergy/AdvReac Type Severity Reaction Status Date / Time No Known Allergies Allergy Verified 01/04/18 17:06 Home Medications: Ambulatory Orders Insulin Glargine,Hum.rec.anlog [Lantus Solostar PEN (NF)] 40 units SQ AM Insulin Lispro [Humalog] 10 unit SQ AC 07/07/15 Clindamycin [Cleocin -] 150 mg PO Q8H #21 capsule 01/04/18 Review of Systems - Review of Systems Constitutional: No: Chills, Diaphoresis, Fever HEENTM: No: Blurred Vision, Recent change in vision Respiratory: No: Cough, Shortness of Breath Cardiac (ROS): No: Chest Pain, Lightheadedness, Palpitations ABD/GI: No: Constipated, Diarrhea, Nausea, Vomiting : No: Dysuria, Frequency, Hematuria, Urgency Musculoskeletal: Yes: Other (Left greater toe pain and swelling.). No: Back Pain, Gout, Neck Pain Integumentary: Yes: Change in Color (Left greater toe erythema), Erythema, Lesions. No: Flushing Neurological: No: Headache, Numbness, Paresthesia, Unsteady Gait Psychiatric: No: Anxiety, Depression Endocrine: No: Excessive Sweating, Intolerance to Heat, Unexplained Weight Loss All Other Systems: Reviewed and Negative <HamletGiomdexter - Last Filed: 01/04/18 17:07> *Physical Exam - Physical Exam General Appearance: Yes: Nourished, Appropriately Dressed. No: Apparent Distress HEENT: positive: EOMI, SHASHANK, Normal ENT Inspection Neck: positive: Supple Respiratory/Chest: positive: Lungs Clear, Normal Breath Sounds. negative: Chest Tender, Respiratory Distress Cardiovascular: positive: Regular Rhythm, Regular Rate Vascular Pulses: Dorsalis-Pedis (R): 2+, Doralis-Pedis (L): 2+ Comments:: 01/04/18 17:11 2+/4 pulses bilaterally Gastrointestinal/Abdominal: positive: Normal Bowel Sounds, Soft. negative: Tender, Organomegaly, Increased Bowel Sounds Lymphatic: negative: Adenopathy, Tenderness Musculoskeletal: positive: Normal Inspection Extremity: positive: Normal Capillary Refill, Normal Inspection, Normal Range of Motion. negative: Pedal Edema Integumentary: positive: Dry, Warm, Erythema (Left great toe.), Swelling, Other (Erythematous inflamed left first toe, non tender, no active drainage, and good range of motion.). negative: Cold, Rash, Ecchymosis Neurologic: positive: banking attorney II-XII NML intact, Fully Oriented, Alert, Normal Mood/ Affect, Normal Response, Motor Strength 5/5 <Deejay Mcnulty - Last Filed: 01/04/18 17:07> ED Treatment Course - Medications Given in the ED: ED Medications Discontinued Medications Generic Name Dose Route Start Last Admin Trade Name Freq PRN Reason Stop Dose Admin Clindamycin HCl 300 mg 01/04/18 17:01 01/04/18 17:05 Cleocin - PO 01/04/18 17:02 300 mg ONCE ONE Administration <Deejay Mcnulty - Last Filed: 01/04/18 17:07> - ADDITIONAL ORDERS Additional order review: 01/04/18 17:19 Pt with mild erythema of left 1st toe, scabbed healing lesion to toe, most likely source of infection. No fever or chills. Left toe cellulitic, no crepitus, or presence of gangrene noted, pulses 2+/4 b/l in LE No focal deficits, erythema only to dorsum of 1st toe, full ROM It appears pt has a little diabetic neuropathy from uncontrolled sugar. Will place on Clindamycin and recommend [facility] Pt is in agreement with plan <Attila Morgan - Last Filed: 01/04/18 17:23> *DC/Admit/Observation/Transfer - Attestations Scribe Attestion: 01/04/18 17:12 Documentation prepared by Deejay Mcnutly, acting as medical coding technician for Attila Morgan MD. 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
[2018-01-04] MEDS ORDERED: CLINDAMYCIN HCL 300 MG CAPSULE PO ONE (17:01)
[2018-01-04] MEDS ORDERED: CLINDAMYCIN HCL 150 MG CAPSULE (FP) ONE (17:03)
[2018-01-04 17:28] VITALS: BP 133/87; PULSE 90; TEMP 97.5; BMI 31.1
== END 2018-01-04 17:30 | disposition home or self-care (01) ==
LOC: FER 16:47
DX: E10.49 Type 1 diabetes mellitus with other diabetic neurological complication (principal); L03.032 Cellulitis of left toe
CPT/HCPCS: 99281-25

== ENCOUNTER 2018-02-24 15:00 | Inpatient (IN) | payer OTHER ==
--- NOTE | 2018-02-24 15:03 | PDOC ---
History of Present Illness - General Chief Complaint: Nausea/Vomiting Stated Complaint: DIFFICULTY BREATHING Time Seen by Provider: 02/24/18 15:03 History Source: Patient Exam Limitations: No Limitations - History of Present Illness Initial Comments: 02/24/18 15:28 37 year old male with pmhx of DM, HTN , Asthma and polysubstance abuse present to ED by EMS from [facility]. pt complained of sob , nausea and diaphoresis, polyuria and polydipsea that prompt the staff to call EMS who found his blood sugar 310, BP 180/120, with sever sweating , flush and tachy 110, pt recieved iV fluids and zofran and was presneted to ED. he denies any headache, blurry vision , lightheadedness, sore throat , recent cold. pt denies nay chest pain, cough , abdominal pain , V/D/C. denies any urinary symptoms or swelling in his legs. pt reports he did not sleep for multiple days and he feels very anxious. pt reports using JHP , last use today at 5 am and then went to [facility] for detox. I called [facility] who reports that patient was not accepted because he does not meet criteria. PMH: DM, HTN , DKA, poly substance abuse , L3-L4 herniated disk PSH: none Allergies : NKDA Meds: per pt xanax 2 mg po QID, Oxycodon 120 mg Q 6 hr for back pain , he did not take BP for months , he is taking long acting insulin 40 mg daily and 12 units short acting TID Social: with no kids , never smoke or use alcohol but he reports using JHP last use today at 5 am , cocaine, ecstasy and heroin sniff (last use 2 years ago ) FH: none contributory Vitals : Vital Signs Period Temp Pulse Resp BP Sys/Medrano Pulse Ox Last 24 Hr 98.2 F 95 16 158/95 98 Physical Exam: General: well nourished in NAD Head: NC/AT , VICTOR MANUEL: MMM, IGNACIO , EOMI Lungs: CTA B/L , no wheezes, no crackles no accessory muscle use Heart:RRR, No MRG Abdomen: soft ,ND.NT normal active bowel sounds , small umbilical hernia Neuro: no facial deficit, sensation intact . FRM all ext , reflexes intact Legs: +2 DP , no edema , left big toe erythema Skin: warm and dry , with multiple tattoos Psych: appropriate mood and effect DD: R/O DKA R/O OR Work UP CBC , CMP Cardiac profile Lipase , monitor BP BGM IV fluids Urine toxicology screen 02/24/18 15:44 02/24/18 22:00 pt received 1 mg Ativan X2 he is still have some withdrawal symptoms. heart racing , tremors agitation . BP in 145/85. pulse 105 . will add 2 mg IV Ativan for now 02/24/18 22:52 pt will be admitted to [facility] for observation due t withdrawal symptoms. spoke with . Past History - Past Medical History Allergies/Adverse Reactions: Allergies Allergy/AdvReac Type Severity Reaction Status Date / Time No Known Allergies Allergy Verified 01/04/18 17:06 Home Medications: Ambulatory Orders Insulin Glargine,Hum.rec.anlog [Lantus Solostar PEN (NF)] 40 units SQ AM Insulin Lispro [Humalog] 8 unit SQ AC 07/07/15 Alprazolam [Xanax] 2 mg PO TID 02/24/18 Dextroamphetamine Sulfate [Zenzedi] 30 mg PO TID 02/24/18 Oxycodone HCl 30 mg PO QID PRN 02/24/18 Anemia: No Asthma: Yes Cancer: No Cardiac Disorders: No CVA: No COPD: No CHF: No Dementia: No Diabetes: Yes (IDDM) GI Disorders: No Disorders: No HTN: No Hypercholesterolemia: No Kidney Stones: No Liver Disease: No Seizures: No Thyroid Disease: No - Reproductive History Testicular Surgery: No - Immunization History Immunization Up to Date: Yes - Suicide/Smoking/Psychosocial Hx Smoking History: Never smoked Have you smoked in the past 12 months: No Number of Cigarettes Smoked Daily: 0 Hx Alcohol Use: No Drug/Substance Use Hx: Yes Substance Use Type: Prescribed, Tranquilizers Hx Substance Use Treatment: Yes ED Treatment Course - LABORATORY CBC & Chemistry Diagram: 02/24/18 15:54 02/24/18 15:54 *DC/Admit/Observation/Transfer Diagnosis at time of Disposition: Substance abuse withdrawal - Referrals - Patient Instructions - Post Discharge Activity
[2018-02-24] MEDS ORDERED: ONDANSETRON 4 MG/2 ML VIAL ONE (15:05)
[2018-02-24] MEDS ORDERED: SODIUM CHLORIDE 1,000 ML IV SCH (15:30)
--- NOTE | 2018-02-24 16:41 | PDOC ---
Attending Attestation - HPI HPI: 02/24/18 18:00 The patient is a 37-year-old male, with a significant past medical history of asthma, DM, HTN, and polysubstance abuse, who presents to the ED via EMS from [facility]. Patient reports recent use of GHB that caused him to experience nausea and sweats. He attempted to go for detox today but the patient was refused after the patient's blood sugar and blood pressure were noted to be high at 301 and 180/20. EMS was called and the patient received IV fluids and Zofran while in route to the ED. On exam, he reports left toe swelling and redness that is now healing. The patient denies any dysuria. Denies any dizziness or lightheadedness. Allergies : NKDA - Physicial Exam PE: 02/24/18 18:07 GENERAL: Awake, alert, and fully oriented, in no acute distress HEAD: No signs of trauma EYES: PERRLA, EOMI, sclera anicteric, conjunctiva clear ENT: Auricles normal inspection, hearing grossly normal, nares patent, oropharynx clear without exudates. Moist mucosa NECK: Normal ROM, supple, no lymphadenopathy, JVD, or masses LUNGS: Breath sounds equal, clear to auscultation bilaterally. No wheezes, and no crackles HEART: Regular rate and rhythm, normal S1 and S2, no murmurs, rubs or gallops ABDOMEN: (+)Midabdomen hernia, eczema noted at belly button. Soft, nontender, normoactive bowel sounds. No guarding, no rebound. EXTREMITIES: (+)Red left big toe, improving from recent cellulitis. Normal range of motion. No clubbing or cyanosis. No cords, erythema, or tenderness NEUROLOGICAL: Cranial nerves II through XII grossly intact. Normal speech, normal gait SKIN: Warm, Dry, normal turgor. <Catia Sen - Last Filed: 02/24/18 18:15> - Resident Resident Name: Houston Keller - ED Attending Attestation I have performed the following: I have examined & evaluated the patient, The case was reviewed & discussed with the resident, I agree w/resident's findings & plan, Exceptions are as noted - Medical Decision Making 02/24/18 16:41 I, Dr. July Adkins, DO, attest that this document has been prepared under my direction and personally reviewed by me in its entirety. I further attest, that it accurately reflects all work, treatment, procedures and medical decision -making performed by me. 02/24/18 16:55 a/p: 37yo male with GHB use - attempted to go to detox today for GHB use -pt refused by [facility] -states he had nausea, sweats -pt is diabetic - bp and glucose elevated at [facility], told to come to the ED for eval -denies etoh, denies other drug use -will check labs given elevated glucose -will medicate for nausea and IVF hydration 02/25/18 09:12 pt signed out to the oncoming ED physician pending re-eval 02/25/18 09:12 pt had tremors and tongue fasciculations - will give po ativan and continue to monitor <July Adkins - Last Filed: 02/25/18 09:12> Attestations - Attestations 02/24/18 18:16 Documentation prepared by Catia Sen, acting as medical supply technician for July Adkins DO. <Catia Sen - Last Filed: 02/24/18 18:15>
[2018-02-24 16:59] LABS: BASO % 0.6 % (0-2.0); EOS % 0.5 % (0-4.5); HEMATOCRIT 44.1 % (35.4-49); HEMOGLOBIN 14.9 GM/dL (11.7-16.9); LYMPH % 15.7 % (8-40); MCH 31.9 pg (25.7-33.7); MCHC 33.7 g/dl (32.0-35.9); MEAN CELL VOLUME 94.6 fl (80-96); MEAN PLT VOLUME 10.6 fl (7.5-11.1); MONO % 9.1 % (3.8-10.2); NEUT % 74.1 % (42.8-82.8); PLATELET COUNT 158 K/MM3 (134-434); RBC 4.66 M/mm3 (4.00-5.60); RDW 13.8 % (11.9-15.9)
[2018-02-24 18:44] LABS: ALBUMIN 3.5 g/dl (3.4-5.0); ALK PHOS 71 U/L (45-117); ANION GAP 9 (8-16); BILIRUBIN,TOTAL 0.4 mg/dL (0.2-1.0); BLOOD UREA NITROGEN 16 mg/dL (7-18); CALCIUM 8.6 mg/dL (8.5-10.1); CHLORIDE 108 mmol/L (98-107); CO2 28 mmol/L (21-32); GLUCOSE,RANDOM 233 mg/dL (74-106); LIPASE 47 U/L (73-393); POTASSIUM 4.6 mmol/L (3.5-5.1); SGOT/AST 57 U/L (15-37); SGPT/ALT 53 U/L (12-78); SODIUM 145 mmol/L (136-145); TOT PROT 6.4 g/dl (6.4-8.2)
[2018-02-24 19:10] LABS: URINE APPEARANCE CLEAR; URINE BILIRUBIN NEGATIVE (<2.0 mg/dL); URINE BLOOD NEGATIVE (NEGATIVE); URINE COLOR LTYELLOW; URINE GLUCOSE (UA) 3+ (NEGATIVE); URINE KETONE 1+ (NEGATIVE); URINE LEUK ESTERASE NEGATIVE (NEGATIVE); URINE NITRITE NEGATIVE (NEGATIVE); URINE PROTEIN NEGATIVE (NEGATIVE); URINE UROBILINOGEN 4.0 E.U/dl mg/dL (0.2-1.0)
[2018-02-24] MEDS ORDERED: LORazepam 0.5 MG TABLET PO ONE (19:15)
[2018-02-24] MEDS ORDERED: LACTATED RINGERS SOLUTION 1000 ML INFUS.BAG IV ONE (19:22)
[2018-02-24] MEDS ORDERED: LORazepam 0.5 MG TABLET ONE (19:37)
[2018-02-24 20:09] LABS: COCAINE, UR NEGATIVE ng/ml (CUTOFF=300); URINE BARBITURATES NEGATIVE ng/ml (CUTOFF=200)
[2018-02-24 20:10] LABS: METHADONE, UR NEGATIVE ng/ml (CUTOFF=300); OPIATES, URI NEGATIVE ng/ml (CUTOFF=300); PHENCYCLIDINE,URINE NEGATIVE ng/ml (CUTOFF=25); URINE AMPHETAMINES POSITIVE ng/ml (CUTOFF=500); URINE BENZODIAZEPINES POSITIVE ng/ml (CUTOFF=200)
[2018-02-24] MEDS ORDERED: LORazepam 2 MG/ML SDV VIAL ONE ×2 (20:33→22:09)
[2018-02-24] MEDS ORDERED: HALOPERIDOL LACTATE 5 MG/ML ONE (22:09)
[2018-02-24] MEDS ORDERED: HALOPERIDOL LACTATE 5 MG/ML IM ONE (22:18)
--- NOTE | 2018-02-24 23:45 | HP ---
CHIEF COMPLAINT: GHB withdrawal PCP: Dr. Schrader Limitations to hx: Pt altered on exam, poor historian HISTORY OF PRESENT ILLNESS: 37 yo man with asthma, DM2, PSA currently on adderall, xanax and GHB w/ prior hx of cocaine and heroine abuse, who presents after visiting [facility] for rehab this AM, found to be hypertensive, hyperglycemic to 300s. Per pt, attempted to enter detox program at [facility] this AM at the behest of his . Recently took GHB around 5AM this morning, of which he takes "7 cc's" every three hours for the past 6-12 months. Pt also endorses chronic xanax and adderall abuse, however does endorse a rx. Pt states he gets his GHB supply from "a friend". Pt found at [facility] with BG 310, BP 180/120, with severe diaphoresis, flushing, tachycardia and agitation. EMS was activated and pt was brought to ED. Per pt, he denies PACK, lightheadedness, photophobia/phonophobia, hallucinations, CP, ab pain, back pain, f/c. He does endorses palpitations, occasional SOB and intermittent nausea, but has not vomiting. He similarly endorses multiple days of insomnia. In ED, pt A&Ox1, pulling IV lines and wandering out of bed. Has not been aggressive toward staff. Received multiple doses of ativan for agitation with good effect, 1x haldol. ER course was notable for: (1)CK 1400~ (2)U tox + for benzos, amphetamines (3)Received ativan x4 (4) UA glucose 3+, Ketones 1+ Recent Travel: none PAST MEDICAL HISTORY: Asthma DM2 PSA HTN PAST SURGICAL HISTORY: None Social History: Smoking: Denies Alcohol: Denies Drugs: GHB 7cc q3h, most recently 3 days ago per pt; Cocaine, ecstacy, heroin last used 2 years ago Family History: Noncon Allergies No Known Allergies Allergy (Verified 01/04/18 17:06) HOME MEDICATIONS: Home Medications Medication Instructions Recorded Insulin Glargine,Hum.rec.anlog 40 units SQ AM 07/07/15 [Lantus Solostar PEN (NF)] Insulin Lispro [Humalog] 8 unit SQ AC 07/07/15 Alprazolam [Xanax] 2 mg PO TID 03/31/18 Dextroamphetamine Sulfate [Zenzedi] 30 mg PO TID 02/24/18 Oxycodone HCl 30 mg PO QID PRN 02/24/18 REVIEW OF SYSTEMS CONSTITUTIONAL: diaphoresis, Absent: fever, chills, generalized weakness, malaise, loss of appetite, weight change HEENT: Absent: rhinorrhea, nasal congestion, throat pain, throat swelling, difficulty swallowing, mouth swelling, ear pain, eye pain, visual changes CARDIOVASCULAR: palpitations, Absent: chest pain, syncope, irregular heart rate, lightheadedness, peripheral edema RESPIRATORY: shortness of breath, Absent: cough, dyspnea with exertion, orthopnea, wheezing, stridor, hemoptysis GASTROINTESTINAL: nausea, Absent: abdominal pain, abdominal distension, vomiting, diarrhea, constipation, melena, hematochezia GENITOURINARY: Absent: dysuria, frequency, urgency, hesitancy, hematuria, flank pain, genital pain MUSCULOSKELETAL: Absent: myalgia, arthralgia, joint swelling, back pain, neck pain SKIN: Absent: rash, itching, pallor HEMATOLOGIC/IMMUNOLOGIC: Absent: easy bleeding, easy bruising, lymphadenopathy, frequent infections ENDOCRINE: Absent: unexplained weight gain, unexplained weight loss, heat intolerance, cold intolerance NEUROLOGIC: Absent: headache, focal weakness or paresthesias, dizziness, unsteady gait, seizure, mental status changes, bladder or bowel incontinence PSYCHIATRIC: Absent: anxiety, depression, suicidal or homicidal ideation, hallucinations. PHYSICAL EXAMINATION Vital Signs - 24 hr 02/24/18 02/24/18 02/24/18 15:00 16:10 20:10 Temperature 98.2 F 98.2 F 98.2 F Pulse Rate 95 H Pulse Rate [ 92 H 97 H Apical] Respiratory 16 17 18 Rate Blood Pressure 158/95 Blood Pressure 130/72 130/60 [Left] O2 Sat by Pulse 98 100 Oximetry (%) 02/24/18 02/24/18 21:25 22:29 Temperature 98.0 F Pulse Rate Pulse Rate [ 105 H 104 H Apical] Respiratory 16 16 Rate Blood Pressure Blood Pressure 149/95 142/62 [Left] O2 Sat by Pulse 100 100 Oximetry (%) GENERAL: Middle aged man, anxious, A&Ox1 HEAD: Normal with no signs of trauma. EYES: Pupils equal, round and reactive to light, extraocular movements intact, sclera anicteric, conjunctiva clear. No lid lag. EARS, NOSE, THROAT: Ears normal, nares patent, oropharynx clear without exudates. Moist mucous membranes. NECK: No JVD, or masses. LUNGS: Breath sounds equal, clear to auscultation bilaterally. No wheezes, and no crackles. No accessory muscle use. HEART: Tachycardic. Regular rate and rhythm, normal S1 and S2 without murmur, rub or gallop. ABDOMEN: Increased abdominal tone. Nontender, not distended, normoactive bowel sounds, no guarding, no rebound, no masses. No hepatomegaly or splenomegaly. Psoriatic rash on anterior abdomen. MUSCULOSKELETAL: Normal range of motion at all joints. No bony deformities or tenderness. No CVA tenderness. UPPER EXTREMITIES: 2+ pulses, warm, well-perfused. No cyanosis. No clubbing. No peripheral edema. LOWER EXTREMITIES: 2+ pulses, warm, well-perfused. No calf tenderness. No peripheral edema. Mild erythema on L 1st digit. NEUROLOGICAL: Cranial nerves II-XII intact. 5/5 strength and preserved sensation in all extremities. PSYCHIATRIC: Cooperative. Pressured speech, tangential Laboratory Results - last 24 hr CBC, BMP 02/24/18 15:54 02/24/18 15:54 02/24/18 02/24/18 02/24/18 15:50 15:54 15:54 WBC 8.0 RBC 4.66 Hgb 14.9 Hct 44.1 MCV 94.6 MCH 31.9 MCHC 33.7 RDW 13.8 D Plt Count 158 MPV 10.6 Neutrophils % 74.1 Lymphocytes % 15.7 Monocytes % 9.1 Eosinophils % 0.5 Basophils % 0.6 Sodium 145 Potassium 4.6 Chloride 108 H Carbon Dioxide 28 Anion Gap 9 BUN 16 D Creatinine 1.0 Creat Clearance w eGFR > 60 POC Glucometer [phone] Random Glucose 233 H Calcium 8.6 Total Bilirubin 0.4 D AST 57 H D ALT 53 D Alkaline Phosphatase 71 Creatine Kinase Creatine Kinase Index CK-MB (CK-2) Troponin I Total Protein 6.4 Albumin 3.5 Lipase 47 L Urine Color Urine Appearance Urine pH Ur Specific [place] Urine Protein Urine Glucose (UA) Urine Ketones Urine Blood Urine Nitrite Urine Bilirubin Urine Urobilinogen Ur Leukocyte Esterase Opiates Screen Methadone Screen Barbiturate Screen Phencyclidine Screen Ur Amphetamines Screen MDMA (Ecstasy) Screen Benzodiazepines Screen Cocaine Screen U Marijuana (THC) Screen 02/24/18 02/24/18 02/24/18 15:54 18:49 18:49 WBC RBC Hgb Hct MCV MCH MCHC RDW Plt Count MPV Neutrophils % Lymphocytes % Monocytes % Eosinophils % Basophils % Sodium Potassium Chloride Carbon Dioxide Anion Gap BUN Creatinine Creat Clearance w eGFR POC Glucometer Random Glucose Calcium Total Bilirubin AST ALT Alkaline Phosphatase Creatine Kinase 1812 H Creatine Kinase Index 0.4 CK-MB (CK-2) 8.517 H Troponin I 0.02 Total Protein Albumin Lipase Urine Color Ltyellow Urine Appearance Clear Urine pH 7.0 D Ur Specific [place] 1.029 Urine Protein Negative Urine Glucose (UA) 3+ H Urine Ketones 1+ H Urine Blood Negative Urine Nitrite Negative Urine Bilirubin Negative Urine Urobilinogen 4.0 e.u/dl Ur Leukocyte Esterase Negative Opiates Screen Negative Methadone Screen Negative Barbiturate Screen Negative Phencyclidine Screen Negative Ur Amphetamines Screen Positive MDMA (Ecstasy) Screen Negative Benzodiazepines Screen Positive Cocaine Screen Negative U Marijuana (THC) Screen Negative No micro No imaging ASSESSMENT/PLAN: 37 yo man with asthma, DM2, PSA currently on adderall, xanax and GHB w/ prior hx of cocaine and heroine abuse, who presents after visiting [facility] for rehab this AM, found to be hypertensive, hyperglycemic to 300s. #Suspected GHB withdrawal vs. Amphetamine intoxication - utox + for amphetamines , benzos - Supportive care - IVFs - cardiac monitoring - Ativan 1mg IV q4h - Vitals q4h - Bedrest - fall precautions - NPO - Zofran 4mg IV for N/V - Trend M/S #DM2 - Insulin SS - BGMs q4h - Confirm home regimen #ADHD - hold zenzedi in setting of acute agitation FEN NS 100cc/hr Daily lytes NPO for now until MS normalizes PPX HSQ Dispo: Tele obs Plan discussed with attending, Dr. Renata Carter, PGY1 Visit type - Emergency Visit Emergency Visit: Yes ED Registration Date: 02/24/18 Care time: The patient presented to the Emergency Department on the above date and was hospitalized for further evaluation of their emergent condition. - New Patient This patient is new to me today: Yes Date on this admission: 02/25/18 - Critical Care Critical Care patient: No Hospitalist Screening - Colonoscopy Questionnaire Colonoscopy Questionnaire: Colonoscopy Questionnaire - Patient: 50 - 75 years old and never had a screening colonoscopy: Unknown History of colon or rectal polyps, or CA: Unknown History of IBD, Crohn's disease or UC: Unknown History of abdominal radiation therapy as a child: Unknown - Relative: 1 with colon or rectal CA, or polyps at age 60 or younger: Unknown Colon or rectal CA diagnosed at age 45 or younger: Unknown Multiple relatives with colon or rectal CA: Unknown - Outcome: Screening Result: Negative Screen
--- NOTE | 2018-02-25 01:11 | PN ---
Teaching Attending Note Name of Resident: Navarro Carter ATTENDING PHYSICIAN STATEMENT I saw and evaluated the patient. Chart, data imaging reviewed. I reviewed the resident's note and discussed the case with the resident. I agree with the resident's findings and plan as documented. SUBJECTIVE: 37yo man who with poly substance abuse including aderrall, oxycodone, xanax, ( Cocaine, ecstacy, heroin last used 2 years ago)and most recently GHB 7cc q3h at home came to ER after he decided to stop taking his GHB on 02/24 in the am and subsequently started experiencing severe agitation and restlessness and was suspected to be withdrawing. He went to ER for evaluation, received multiple dose of xanax and one does of haldol. OBJECTIVE: Last Vital Signs Temp Pulse Resp BP Pulse Ox 98.0 F 104 H 16 142/62 100 02/24/18 21:25 02/24/18 22:29 02/24/18 22:29 02/24/18 22:29 02/24/18 22:29 general- restless, nontoxic appearing neuro- aaox3, no focal neurological deficits appreciated HEENT- atraumatic, normocephalic, dilated pupils b/l but reactive to light Neck -supple, no masses or jvd cv-s1+s2+ tachycardia, no murmurs chest- cta b/l abdomen -soft, nt, no masses appreciated ext- (-) pedal edema,moves all extremities ekg- NSR, no ST- T changes Abnormal Lab Results 02/24/18 02/24/18 02/24/18 15:54 15:54 18:49 Chloride 108 H Random Glucose 233 H AST 57 H D Creatine Kinase 1812 H CK-MB (CK-2) 8.517 H Lipase 47 L Urine Glucose (UA) 3+ H Urine Ketones 1+ H ASSESSMENT AND PLAN: #37yo man with polysubstance abuse with most likely withdrawal from GHB. Patient has borderline tachycardia and is tremulous but is oriented to place and time. Otherwise clinically stable for observation. -observation/telemetry -IV fluid hydration -Lorazepam 2mg PO q4hrs if acute agitation -monitor vital signs closely -bed rest -fall precautions -NPO for now -Detox after D/c from hospital #DM -insulin sliding scale DVT ppx -heparin sc
[2018-02-25] MEDS ORDERED: LORazepam 0.5 MG TABLET PO ONE (01:14)
[2018-02-25] MEDS ORDERED: LORazepam 2 MG/ML SDV VIAL IM PRN (01:15)
[2018-02-25] MEDS ORDERED: ONDANSETRON 4 MG/2 ML VIAL IVPUSH PRN (01:15)
[2018-02-25] MEDS ORDERED: LORazepam 0.5 MG TABLET ONE (02:01)
[2018-02-25] MEDS ORDERED: HEPARIN NA (PORCINE) 5,000 UNITS/ML 1ML VIAL ONE (02:01)
[2018-02-25] MEDS: SODIUM CHLORIDE 1,000 ML IV SCH ×3 (02:10→17:01)
[2018-02-25 05:28] VITALS: BMI 28.4
[2018-02-25] MEDS: HEPARIN NA (PORCINE) 5,000 UNITS/ML 1ML VIAL SQ SCH ×3 (05:50→21:40)
[2018-02-25] MEDS: INSULIN SLIDING SCALE (NOVOLOG) 1 VIAL SQ SCH ×4 (06:13→21:40)
[2018-02-25] MEDS ORDERED: ALPRAZolam 0.25 MG TABLET PO ONE (07:56)
[2018-02-25] MEDS ORDERED: THIAMINE HCL 200 MG/2 ML VIAL IVPB SCH (10:30)
[2018-02-25] MEDS ORDERED: diazePAM CARPU-JECT 10 MG/2 ML DISP.SYRIN IVPUSH PRN (10:30)
--- NOTE | 2018-02-25 10:33 | PN ---
Teaching Attending Note Name of Resident: Navarro Carter SUBJECTIVE: Patient seen and examined. anxious but overall feels better, no new complaints. OBJECTIVE: Vital Signs Period Temp Pulse Resp BP Sys/Medrano Pulse Ox Last 24 Hr 97.8 F-98.2 F 77-105 16-18 115-158/60-95 98-100 Intake & Output 02/22/18 02/23/18 02/24/18 02/25/18 23:59 23:59 23:59 23:59 Intake Total 300 Output Total 500 Balance -200 Weight 220 lb 221 lb 4 oz General sitting in bed in no acute distress, anxious flushed CVS S1S2 tachycardic, regular Chest CTAB, no rales or wheezing Abdomen soft, NT, ND ,positive bowel sounds Neuro AAOX3, facial symmetry, EOMI, power 5/5, sensation positive to light touch , no pronator drift, extremities no edema, mild tremors Home Medication List Medication Instructions Recorded Confirmed Type Insulin Glargine,Hum.rec.anlog 40 units SQ AM 07/07/15 02/24/18 History [Lantus Solostar PEN (NF)] Insulin Lispro [Humalog] 8 unit SQ AC 07/07/15 02/24/18 History Alprazolam [Xanax] 2 mg PO TID 02/24/18 02/24/18 History Dextroamphetamine Sulfate [Zenzedi] 30 mg PO TID 02/24/18 02/24/18 History Oxycodone HCl 30 mg PO QID PRN 02/24/18 02/24/18 History Active Medications Generic Name Dose Route Start Last Admin Trade Name Jeysonq PRN Reason Stop Dose Admin Diazepam 5 mg 02/25/18 10:30 Valium Injection - IVPUSH Q4H PRN AGITATION Folic Acid 1 mg 02/25/18 10:30 Folic Acid Injection - SQ DAILY SHANNAN Heparin Sodium (Porcine) 5,000 unit 02/25/18 06:00 02/25/18 05:50 Heparin - SQ Not Given TID SHANNAN Sodium Chloride 1,000 mls @ 125 mls/hr 02/24/18 15:30 02/24/18 15:37 Normal Saline - IV 125 mls/hr ASDIR SHANNAN Administration Sodium Chloride 1,000 mls @ 100 mls/hr 02/25/18 01:15 02/25/18 04:21 Normal Saline - IV 100 mls/hr ASDIR SHANNAN Administration Insulin Aspart 1 vial 02/25/18 07:00 02/25/18 06:13 Novolog Vial Sliding Scale - SQ Not Given ACHS [facility] Protocol Ondansetron HCl 4 mg 02/25/18 01:15 Zofran Injection IVPUSH Q6H PRN NAUSEA Thiamine HCl 200 mg 02/25/18 10:30 Vitamin B1 Injection - IVPB DAILY [facility] Laboratory Results - last 24 hr 02/24/18 02/24/18 02/24/18 15:50 15:54 15:54 WBC 8.0 RBC 4.66 Hgb 14.9 Hct 44.1 MCV 94.6 MCH 31.9 MCHC 33.7 RDW 13.8 D Plt Count 158 MPV 10.6 Neutrophils % 74.1 Lymphocytes % 15.7 Monocytes % 9.1 Eosinophils % 0.5 Basophils % 0.6 Sodium 145 Potassium 4.6 Chloride 108 H Carbon Dioxide 28 Anion Gap 9 BUN 16 D Creatinine 1.0 Creat Clearance w eGFR > 60 POC Glucometer [phone] Random Glucose 233 H Calcium 8.6 Total Bilirubin 0.4 D AST 57 H D ALT 53 D Alkaline Phosphatase 71 Creatine Kinase Creatine Kinase Index CK-MB (CK-2) Troponin I Total Protein 6.4 Albumin 3.5 Lipase 47 L Urine Color Urine Appearance Urine pH Ur Specific [place] Urine Protein Urine Glucose (UA) Urine Ketones Urine Blood Urine Nitrite Urine Bilirubin Urine Urobilinogen Ur Leukocyte Esterase Opiates Screen Methadone Screen Barbiturate Screen Phencyclidine Screen Ur Amphetamines Screen MDMA (Ecstasy) Screen Benzodiazepines Screen Cocaine Screen U Marijuana (THC) Screen 02/24/18 02/24/18 02/24/18 15:54 18:49 18:49 WBC RBC Hgb Hct MCV MCH MCHC RDW Plt Count MPV Neutrophils % Lymphocytes % Monocytes % Eosinophils % Basophils % Sodium Potassium Chloride Carbon Dioxide Anion Gap BUN Creatinine Creat Clearance w eGFR POC Glucometer Random Glucose Calcium Total Bilirubin AST ALT Alkaline Phosphatase Creatine Kinase 1812 H Creatine Kinase Index 0.4 CK-MB (CK-2) 8.517 H Troponin I 0.02 Total Protein Albumin Lipase Urine Color Ltyellow Urine Appearance Clear Urine pH 7.0 D Ur Specific [place] 1.029 Urine Protein Negative Urine Glucose (UA) 3+ H Urine Ketones 1+ H Urine Blood Negative Urine Nitrite Negative Urine Bilirubin Negative Urine Urobilinogen 4.0 e.u/dl Ur Leukocyte Esterase Negative Opiates Screen Negative Methadone Screen Negative Barbiturate Screen Negative Phencyclidine Screen Negative Ur Amphetamines Screen Positive MDMA (Ecstasy) Screen Negative Benzodiazepines Screen Positive Cocaine Screen Negative U Marijuana (THC) Screen Negative 02/25/18 05:43 WBC RBC Hgb Hct MCV MCH MCHC RDW Plt Count MPV Neutrophils % Lymphocytes % Monocytes % Eosinophils % Basophils % Sodium Potassium Chloride Carbon Dioxide Anion Gap BUN Creatinine Creat Clearance w eGFR POC Glucometer 129 Random Glucose Calcium Total Bilirubin AST ALT Alkaline Phosphatase Creatine Kinase Creatine Kinase Index CK-MB (CK-2) Troponin I Total Protein Albumin Lipase Urine Color Urine Appearance Urine pH Ur Specific [place] Urine Protein Urine Glucose (UA) Urine Ketones Urine Blood Urine Nitrite Urine Bilirubin Urine Urobilinogen Ur Leukocyte Esterase Opiates Screen Methadone Screen Barbiturate Screen Phencyclidine Screen Ur Amphetamines Screen MDMA (Ecstasy) Screen Benzodiazepines Screen Cocaine Screen U Marijuana (THC) Screen ASSESSMENT AND PLAN: 37 yom with PMhx of polysubstance abuse (GHB, ?heroine/cocaine), using GHB q3h per records, IDDM, neuropathy, asthma, ADHD on adderall, sent with acute GHB withdrawal -Acute GHB withdrawal, vs Amphetemina toxicity (unlikely) -AMS, suspect toxic metabolic encephalopathy due to above -HTN/Tachycardia, suspect from above -Rhabdomyolysis, due to above -IDDM, with hyperglycemia -Asthma -ADHD on adderall Plan: Valium not available, ativan 1 mg IV q4h prn for agitation, mental status improved. Seizure precautions, close hemodynamic monitoring. Aggressive IV hydration. Start IV folate/thiamine. Substance abuse consult with Dr. Reese. Trend CPK. ISS, confirm home insulin dosage. Cleared bedside swallow eval. Diabetic diet. Resume insulin based on blood sugar readings. albuterol prn. DVTPPx with heparin Dispo pending clinical improvement. Patient's pharmacy is [facility] in [facility] ([phone]), called, closed currently, reconcile meds in AM. Anticipate atleast 2 midnight stays given concerns for severe GHB withdrawal, need for IV benzos frequently, close hemodynamic monitoring and need for IV hydration and monitor for rhabdomyolysis.
[2018-02-25] MEDS ORDERED: INSULIN (NOVOLOG) ASPART 100 UNITS/ML 10ML VIAL ONE ×3 (10:46→21:19)
[2018-02-25] MEDS: SODIUM CHLORIDE IVPB SCH (11:28)
[2018-02-25] MEDS: THIAMINE HCL IVPB SCH (11:28)
[2018-02-25] MEDS: FOLIC ACID 5 MG/1 ML SQ SCH (11:29)
[2018-02-25 11:32] LABS: BASO % 0.4 % (0-2.0); EOS % 0.3 % (0-4.5); HEMATOCRIT 45.1 % (35.4-49); HEMOGLOBIN 14.9 GM/dL (11.7-16.9); MCH 31.3 pg (25.7-33.7); MCHC 33.1 g/dl (32.0-35.9); MEAN CELL VOLUME 94.5 fl (80-96); MONO % 6.7 % (3.8-10.2); NEUT % 73.6 % (42.8-82.8); PLATELET COUNT 153 K/MM3 (134-434); RBC 4.77 M/mm3 (4.00-5.60); RDW 13.8 % (11.9-15.9); WHITE BLOOD COUNT 5.1 K/mm3 (4.0-10.0)
[2018-02-25 12:00] LABS: ALBUMIN 3.2 g/dl (3.4-5.0); ANION GAP 8 (8-16); BILIRUBIN,TOTAL 0.8 mg/dL (0.2-1.0); BLOOD UREA NITROGEN 9 mg/dL (7-18); CALCIUM 8.4 mg/dL (8.5-10.1); CHLORIDE 104 mmol/L (98-107); CO2 27 mmol/L (21-32); CREATININE 0.6 mg/dL (0.7-1.3); GLUCOSE,RANDOM 120 mg/dL (74-106); MAGNESIUM 1.6 mg/dL (1.8-2.4); PHOSPHOROUS 2.7 mg/dL (2.5-4.9); POTASSIUM 3.6 mmol/L (3.5-5.1); SGOT/AST 57 U/L (15-37); SGPT/ALT 50 U/L (12-78); SODIUM 139 mmol/L (136-145); TOT PROT 5.9 g/dl (6.4-8.2)
[2018-02-25 12:12] LABS: ALK PHOS 60 U/L (45-117)
[2018-02-25] MEDS: LORazepam 2 MG/ML SDV VIAL IVPUSH PRN (13:46)
--- NOTE | 2018-02-25 16:12 | EKG ---
Test Reason : Blood Pressure : / mmHG Vent. Rate : 093 BPM Atrial Rate : 093 BPM P-R Int : 134 ms QRS Dur : 094 ms QT Int : 334 ms P-R-T Axes : 070 048 061 degrees QTc Int : 415 ms NORMAL SINUS RHYTHM LEFT ATRIAL ENLARGEMENT NORMAL ECG WHEN COMPARED WITH ECG OF 11-JAN-2017 15:51, NO SIGNIFICANT CHANGE WAS FOUND Confirmed by MD ADITYA, BOWEN ([id number]) on 02/25/2018 4:12:35 PM Referred By: Confirmed By:BOWEN BURGESS MD
[2018-02-25] MEDS ORDERED: ALPRAZolam 2 MG TABLET PO ONE (19:56)
[2018-02-25] MEDS ORDERED: ALPRAZolam 0.25 MG TABLET ONE (20:10)
[2018-02-25] MEDS ORDERED: ALPRAZolam 2 MG TABLET ONE (20:10)
[2018-02-25] MEDS ORDERED: ALPRAZOLAM PO ONE (20:15)
--- NOTE | 2018-02-26 06:01 | PN ---
Physical Exam: SUBJECTIVE: Patient seen and examined - Pt agitated, wandering OOB last night, pulled IV. Night team ordered Xanax 2.5mg, pt more calm, slept well after receiving dose. Plan for detox consult today. - Denies f/c/n/v/d, CP, SOB, ab pain, cough, dysuria; complaining of insomnia, wants xanax rx restarted; Denies any hallucinations, but states he thought he heard his dad calling him yesterday; amenable to IV fluids again OBJECTIVE: Vital Signs Intake & Output 02/23/18 02/24/18 02/25/18 02/26/18 23:59 23:59 23:59 23:59 Intake Total 750 340 Output Total 500 Balance 250 340 Weight 99.79 kg 100.357 kg Period Temp Pulse Resp BP Sys/Medrano Pulse Ox Last 24 Hr 97.9 F-98.6 F 88-95 18-20 145-153/80-85 99-99 GENERAL: Middle aged man, NAD, A&Ox3 HEAD: Normal with no signs of trauma. EYES: Pupils equal, round and reactive to light, extraocular movements intact, sclera anicteric, conjunctiva clear. No lid lag. EARS, NOSE, THROAT: Ears normal, nares patent, oropharynx clear without exudates. Moist mucous membranes. NECK: No JVD. LUNGS: Breath sounds equal, clear to auscultation bilaterally. No wheezes, and no crackles. No accessory muscle use. HEART: Regular rate and rhythm, normal S1 and S2 without murmur, rub or gallop. ABDOMEN: Soft, Nontender, not distended, normoactive bowel sounds, no guarding, no rebound, no masses. No hepatomegaly or splenomegaly. Psoriatic rash on anterior abdomen in subxiphoid and umbilical area. Ventral hernia noted. MUSCULOSKELETAL: Normal range of motion at all joints. No bony deformities or tenderness. No CVA tenderness. UPPER EXTREMITIES: 2+ pulses, warm, well-perfused. No cyanosis. No clubbing. No peripheral edema. LOWER EXTREMITIES: 2+ pulses, warm, well-perfused. No calf tenderness. No peripheral edema. NEUROLOGICAL: Cranial nerves II-XII intact. 5/5 strength and preserved sensation in all extremities. PSYCHIATRIC: Cooperative, pleasant affect Laboratory Results - last 24 hr CBC, BMP 02/26/18 06:25 02/26/18 06:25 02/25/18 11:15 02/25/18 11:15 02/25/18 02/25/18 02/25/18 05:43 10:52 11:15 WBC 5.1 D RBC 4.77 Hgb 14.9 Hct 45.1 MCV 94.5 MCH 31.3 MCHC 33.1 RDW 13.8 Plt Count 153 MPV 10.0 Neutrophils % 73.6 Lymphocytes % 19.0 D Monocytes % 6.7 Eosinophils % 0.3 Basophils % 0.4 Sodium Potassium Chloride Carbon Dioxide Anion Gap BUN Creatinine Creat Clearance w eGFR POC Glucometer 129 119 Random Glucose Calcium Phosphorus Magnesium Total Bilirubin AST ALT Alkaline Phosphatase Creatine Kinase Creatine Kinase Index CK-MB (CK-2) Troponin I Total Protein Albumin 02/25/18 02/25/18 02/25/18 11:15 16:26 21:39 WBC RBC Hgb Hct MCV MCH MCHC RDW Plt Count MPV Neutrophils % Lymphocytes % Monocytes % Eosinophils % Basophils % Sodium 139 Potassium 3.6 D Chloride 104 Carbon Dioxide 27 Anion Gap 8 BUN 9 D Creatinine 0.6 L D Creat Clearance w eGFR > 60 POC Glucometer 170 88 Random Glucose 120 H D Calcium 8.4 L Phosphorus 2.7 Magnesium 1.6 L Total Bilirubin 0.8 D AST 57 H ALT 50 Alkaline Phosphatase 60 Creatine Kinase 1332 H Creatine Kinase Index 0.4 CK-MB (CK-2) 5.461 H Troponin I 0.03 D Total Protein 5.9 L Albumin 3.2 L 02/26/18 01:25 WBC RBC Hgb Hct MCV MCH MCHC RDW Plt Count MPV Neutrophils % Lymphocytes % Monocytes % Eosinophils % Basophils % Sodium Potassium Chloride Carbon Dioxide Anion Gap BUN Creatinine Creat Clearance w eGFR POC Glucometer 122 Random Glucose Calcium Phosphorus Magnesium Total Bilirubin AST ALT Alkaline Phosphatase Creatine Kinase Creatine Kinase Index CK-MB (CK-2) Troponin I Total Protein Albumin Active Medications Generic Name Dose Route Start Last Admin Trade Name Freq PRN Reason Stop Dose Admin Folic Acid 1 mg 02/25/18 10:30 02/25/18 11:29 Folic Acid Injection - SQ 1 mg DAILY SHANNAN Administration Heparin Sodium (Porcine) 5,000 unit 02/25/18 06:00 02/25/18 21:40 Heparin - SQ 5,000 unit TID SHANNAN Administration Sodium Chloride 1,000 mls @ 100 mls/hr 02/25/18 01:15 02/25/18 17:01 Normal Saline - IV 100 mls/hr ASDIR SHANNAN Administration Thiamine HCl 200 mg/ Sodium 102 mls @ 204 mls/hr 02/25/18 10:45 02/25/18 11: 28 Chloride IVPB 204 mls/hr DAILY SHANNAN Administration Insulin Aspart 1 vial 02/25/18 07:00 02/25/18 21:40 Novolog Vial Sliding Scale - SQ Not Given ACHS SHNANAN Protocol Lorazepam 1 mg 02/25/18 10:37 02/25/18 13:46 Ativan Injection - IVPUSH 1 mg Q4H PRN Administration AGITATION Ondansetron HCl 4 mg 02/25/18 01:15 Zofran Injection IVPUSH Q6H PRN NAUSEA No micro No imaging ASSESSMENT/PLAN: 37 yo man with asthma, DM2, PSA currently on adderall, xanax and GHB w/ prior hx of cocaine and heroine abuse, who presents after visiting [facility] for rehab this AM, found to be hypertensive, hyperglycemic to 300s. Pt remains agitated, anxious. Attempted to AMA in PM, was convinced to stay overnight to monitor for withdrawal symptoms. #Suspected GHB withdrawal vs. Amphetamine intoxication - utox + for amphetamines , benzos - Supportive care - Ativan 1mg IV q4h - Vitals q4h - OOB - Zofran 4mg IV for N/V - Trend M/S - Restarted home Xanax 2mg TID - Detox team consulted, recs appreciated - folate/thiamine - counseled on abstinence - CK downtrending ~600 today #DM2 - Insulin SS - BGMs q4h - Restarted on home Lantus 40u qD AM per pt pharmacy #ADHD - hold adderall in setting of acute agitation FEN PO hydration Daily lytes Diabetic diet PPX HSQ Dispo: Tele obs. Likely dispo tomorrow Plan discussed with attending, Dr. Yunior Carter, PGY1 Visit type - Emergency Visit Emergency Visit: Yes ED Registration Date: 02/25/18 Care time: The patient presented to the Emergency Department on the above date and was hospitalized for further evaluation of their emergent condition. - New Patient This patient is new to me today: No - Critical Care Critical Care patient: No - Discharge Referral Referred to [facility] No
[2018-02-26] MEDS: HEPARIN NA (PORCINE) 5,000 UNITS/ML 1ML VIAL SQ SCH ×3 (06:42→21:56)
[2018-02-26] MEDS: INSULIN SLIDING SCALE (NOVOLOG) 1 VIAL SQ SCH ×4 (06:43→21:56)
[2018-02-26 07:19] LABS: BASO % 0.8 % (0-2.0); EOS % 1.8 % (0-4.5); HEMATOCRIT 46.8 % (35.4-49); HEMOGLOBIN 15.7 GM/dL (11.7-16.9); LYMPH % 27.2 % (8-40); MCHC 33.6 g/dl (32.0-35.9); MEAN CELL VOLUME 95.4 fl (80-96); MEAN PLT VOLUME 10.3 fl (7.5-11.1); MONO % 9.2 % (3.8-10.2); PLATELET COUNT 154 K/MM3 (134-434); RBC 4.91 M/mm3 (4.00-5.60); RDW 13.9 % (11.9-15.9); WHITE BLOOD COUNT 4.4 K/mm3 (4.0-10.0)
[2018-02-26 08:07] LABS: CHLORIDE 105 mmol/L (98-107); POTASSIUM 4.2 mmol/L (3.5-5.1); SODIUM 142 mmol/L (136-145)
[2018-02-26 08:21] LABS: ALBUMIN 3.2 g/dl (3.4-5.0); ALK PHOS 64 U/L (45-117); ANION GAP 7 (8-16); BILIRUBIN,TOTAL 0.7 mg/dL (0.2-1.0); BLOOD UREA NITROGEN 11 mg/dL (7-18); CALCIUM 8.7 mg/dL (8.5-10.1); CO2 30 mmol/L (21-32); CREATININE 0.8 mg/dL (0.7-1.3); GLUCOSE,RANDOM 115 mg/dL (74-106); MAGNESIUM 2.1 mg/dL (1.8-2.4); PHOSPHOROUS 3.6 mg/dL (2.5-4.9); SGOT/AST 42 U/L (15-37); SGPT/ALT 49 U/L (12-78)
--- NOTE | 2018-02-26 08:31 | PN ---
Teaching Attending Note Name of Resident: Navarro Carter ATTENDING PHYSICIAN STATEMENT I saw and evaluated the patient. I reviewed the resident's note and discussed the case with the resident. I agree with the resident's findings and plan as documented with exceptions mentioned below. SUBJECTIVE: Patient seen and examined. anxious, but AAOX3, reports visual hallucinations yesterday night, doing well this AM, requesting his xanax. OBJECTIVE: Vital Signs Period Temp Pulse Resp BP Sys/Medrano Pulse Ox Last 24 Hr 97.9 F-98.6 F 88-94 18-20 145-150/80-84 99 Intake & Output 02/23/18 02/24/18 02/25/18 02/26/18 23:59 23:59 23:59 23:59 Intake Total 750 340 Output Total 500 Balance 250 340 Weight 220 lb 221 lb 4 oz General: sitting in bed, anxious Neuro: AAOX3, anxious, power 5/5, sensation positive to light touch, Chest: Abdomen: Home Medication List Medication Instructions Recorded Confirmed Type Insulin Glargine,Hum.rec.anlog 40 units SQ AM 07/07/15 02/24/18 History [Lantus Solostar PEN (NF)] Insulin Lispro [Humalog] 8 unit SQ AC 07/07/15 02/24/18 History Alprazolam [Xanax] 2 mg PO TID 02/24/18 02/24/18 History Dextroamphetamine Sulfate [Zenzedi] 30 mg PO TID 02/24/18 02/24/18 History Oxycodone HCl 30 mg PO QID PRN 02/24/18 02/24/18 History Active Medications Generic Name Dose Route Start Last Admin Trade Name Freq PRN Reason Stop Dose Admin Folic Acid 1 mg 02/25/18 10:30 02/25/18 11:29 Folic Acid Injection - SQ 1 mg DAILY SHANNAN Administration Heparin Sodium (Porcine) 5,000 unit 02/25/18 06:00 02/26/18 06:42 Heparin - SQ 5,000 unit TID SHANNAN Administration Sodium Chloride 1,000 mls @ 100 mls/hr 02/25/18 01:15 02/25/18 17:01 Normal Saline - IV 100 mls/hr ASDIR SHANNAN Administration Thiamine HCl 200 mg/ Sodium 102 mls @ 204 mls/hr 02/25/18 10:45 02/25/18 11: 28 Chloride IVPB 204 mls/hr DAILY SHANNAN Administration Insulin Aspart 1 vial 02/25/18 07:00 02/26/18 06:43 Novolog Vial Sliding Scale - SQ Not Given ACHS [facility] Protocol Lorazepam 1 mg 02/25/18 10:37 02/25/18 13:46 Ativan Injection - IVPUSH 1 mg Q4H PRN Administration AGITATION Ondansetron HCl 4 mg 02/25/18 01:15 Zofran Injection IVPUSH Q6H PRN NAUSEA Laboratory Results - last 24 hr 02/25/18 02/25/18 02/25/18 10:52 11:15 11:15 WBC 5.1 D RBC 4.77 Hgb 14.9 Hct 45.1 MCV 94.5 MCH 31.3 MCHC 33.1 RDW 13.8 Plt Count 153 MPV 10.0 Neutrophils % 73.6 Lymphocytes % 19.0 D Monocytes % 6.7 Eosinophils % 0.3 Basophils % 0.4 Sodium 139 Potassium 3.6 D Chloride 104 Carbon Dioxide 27 Anion Gap 8 BUN 9 D Creatinine 0.6 L D Creat Clearance w eGFR > 60 POC Glucometer 119 Random Glucose 120 H D Calcium 8.4 L Phosphorus 2.7 Magnesium 1.6 L Total Bilirubin 0.8 D AST 57 H ALT 50 Alkaline Phosphatase 60 Creatine Kinase 1332 H Creatine Kinase Index 0.4 CK-MB (CK-2) 5.461 H Troponin I 0.03 D Total Protein 5.9 L Albumin 3.2 L 02/25/18 02/25/18 02/26/18 16:26 21:39 01:25 WBC RBC Hgb Hct MCV MCH MCHC RDW Plt Count MPV Neutrophils % Lymphocytes % Monocytes % Eosinophils % Basophils % Sodium Potassium Chloride Carbon Dioxide Anion Gap BUN Creatinine Creat Clearance w eGFR POC Glucometer 170 88 122 Random Glucose Calcium Phosphorus Magnesium Total Bilirubin AST ALT Alkaline Phosphatase Creatine Kinase Creatine Kinase Index CK-MB (CK-2) Troponin I Total Protein Albumin 02/26/18 02/26/18 02/26/18 06:25 06:25 06:41 WBC 4.4 RBC 4.91 Hgb 15.7 Hct 46.8 MCV 95.4 MCH 32.0 MCHC 33.6 RDW 13.9 Plt Count 154 MPV 10.3 Neutrophils % 61.0 Lymphocytes % 27.2 D Monocytes % 9.2 Eosinophils % 1.8 D Basophils % 0.8 Sodium 142 Potassium 4.2 Chloride 105 Carbon Dioxide 30 Anion Gap 7 L BUN 11 D Creatinine 0.8 D Creat Clearance w eGFR > 60 POC Glucometer 120 Random Glucose 115 H Calcium 8.7 Phosphorus 3.6 D Magnesium 2.1 D Total Bilirubin 0.7 AST 42 H D ALT 49 Alkaline Phosphatase 64 Creatine Kinase Creatine Kinase Index CK-MB (CK-2) Troponin I Total Protein 6.0 L Albumin 3.2 L ASSESSMENT AND PLAN: 37 yom with PMhx of polysubstance abuse (GHB, ?heroine/cocaine), using GHB q3h per records, IDDM, neuropathy, asthma, ADHD on adderall, sent with acute GHB withdrawal -Acute GHB withdrawal, vs Amphetemine toxicity (unlikely) -AMS, suspect toxic metabolic encephalopathy due to above -HTN/Tachycardia, suspect from above -Rhabdomyolysis, due to above -IDDM, with hyperglycemia -Asthma -ADHD on adderall Plan: Ativan 1 mg IV q4h prn for agitation, still with visual hallucinations but mental status improved. Seizure precautions, close hemodynamic monitoring. IVF, taper as PO improves. Change folate/thiamine to PO. Dr. Reese's input appreciated. Continue xanax, no need for opioid detox, no concerns off the same. CPK improved. Home meds confirmed. Resume xanax. ISS, titate insulin based on blood sugars. DVTPPx with heparin Dispo anticipate d/c in 24 hours if symptoms improved and no new concerns. Plan discussed with patient in detail, all questions answered.
[2018-02-26] MEDS: LORazepam 2 MG/ML SDV VIAL IVPUSH PRN (10:02)
[2018-02-26] MEDS: FOLIC ACID 5 MG/1 ML SQ SCH (10:03)
[2018-02-26] MEDS ORDERED: ALPRAZolam 2 MG TABLET PO ONE (11:50)
--- NOTE | 2018-02-26 12:16 | MSN ---
Progress Note (short form) - Note Progress Note: 37 y/o male with pmhx of HTN, ADHD and DM presents for opioid withdrawl. Patient last used GHB on Monday morning and went to [facility] where he was found to be hypertensive (180/120), tachycardic, diaphoretic and hyperglycemic ( 300s) and was sent to the ER. BP this mornign is 133/74 and sugar is 115. Patient has tried to get off GHB in the past and went to [facility] for detox treatment. He takes xanax four times a day and has been on the medication for years due to ADHD. He takes oxycodone a few times a week for pain from a broken foot and L3-4 herniated disk. He states he is feeling better but is still experiencing trouble sleeping, he is getting cold sweats and is anxious. He denies constipation.
[2018-02-26] MEDS ORDERED: INSULIN (NOVOLOG) ASPART 100 UNITS/ML 10ML VIAL ONE ×2 (12:24→21:50)
[2018-02-26] MEDS: SODIUM CHLORIDE IVPB SCH (12:26)
[2018-02-26] MEDS: THIAMINE HCL IVPB SCH (12:26)
--- NOTE | 2018-02-26 12:29 | CONSULT ---
Consult Detox [facility] Reason for Current Admission/Consult: substance use Referred by:: nancy morrison - History History of Present Illness: Reference #: [id number] Others' Prescriptions Patient Name: Lei Schilling Date: 1980 Address: [address] [place] [address] Sex: Male Rx Written Rx Dispensed Drug Quantity Days Supply Prescriber Name 02/19/2018 02/20/2018 oxycodone hcl 30 mg tablet 120 30 Macrina, Rudy Pham MD 02/19/2018 02/20/2018 alprazolam 2 mg tablet 90 30 Macrina, Rudy Pham MD 02/19/2018 02/20/2018 dextroamp-amphetamin 30 mg tab 90 30 Macrina, Rudy Pham MD 01/16/2018 01/17/2018 oxycodone hcl 20 mg tablet 120 20 Macrina, Rudy Pham MD 01/16/2018 01/17/2018 alprazolam 2 mg tablet 90 30 MacrinaRudy MD 01/16/2018 01/16/2018 dextroamp-amphetamin 30 mg tab 90 30 MacrinaRudy MD 12/12/2017 12/19/2017 alprazolam 2 mg tablet 90 30 Macrina, Rudy Pham MD 12/12/2017 12/19/2017 dextroamp-amphetamin 30 mg tab 90 30 MacrinaRudy MD 12/12/2017 12/19/2017 oxycodone hcl 20 mg tablet 120 20 MacrinaRudy MD 11/23/2017 11/23/2017 alprazolam 2 mg tablet 90 30 MacrinaRudy MD 11/23/2017 11/23/2017 dextroamp-amphetamin 30 mg tab 90 30 MacrinaRudy MD 11/23/2017 11/23/2017 oxycodone hcl 20 mg tablet 120 30 MacrinaRudy MD 10/27/2017 10/27/2017 oxycodone hcl 20 mg tablet 120 30 MacrinaRudy tamayo MD 10/27/2017 10/27/2017 dextroamp-amphetamin 30 mg tab 90 30 MacrinaRudy tamayo MD 10/27/2017 10/27/2017 alprazolam 2 mg tablet 90 30 MacrinaRudy MD 09/27/2017 09/28/2017 alprazolam 2 mg tablet 120 30 Macrina, Rudy Pham MD 09/27/2017 09/28/2017 dextroamp-amphetamin 30 mg tab 90 30 Macrina, Rudy Pham MD 09/27/2017 09/28/2017 oxycodone hcl 20 mg tablet 150 30 Macrina, Rudy Pham MD 09/01/2017 09/04/2017 alprazolam 2 mg tablet 120 30 Macrina, Rudy Pham MD 09/01/2017 09/04/2017 oxycodone hcl 20 mg tablet 150 30 Macrina, Rudy Pham MD 09/01/2017 09/04/2017 dextroamp-amphetamin 30 mg tab 90 30 Macrina, Rudy Pham MD 08/03/2017 08/08/2017 dextroamp-amphetamin 30 mg tab 90 30 Macrina, Rudy Pham MD 08/03/2017 08/03/2017 oxycodone hcl 20 mg tablet 150 30 Macrina, Rudy Pham MD 08/03/2017 08/03/2017 alprazolam 2 mg tablet 120 30 Macrina, Rudy Pham MD 07/07/2017 07/13/2017 oxycodone hcl 20 mg tablet 120 30 Macrina, Rudy Pham MD 07/07/2017 07/13/2017 dextroamp-amphetamin 30 mg tab 90 30 Macrina, Rudy Pham MD 07/07/2017 07/07/2017 alprazolam 2 mg tablet 120 30 Macrina, Rudy Pham MD 06/06/2017 06/12/2017 dextroamp-amphetamin 30 mg tab 90 30 Macrina, Rudy Pham MD 06/06/2017 06/06/2017 alprazolam 2 mg tablet 120 30 Macrina, Rudy Pham MD 06/06/2017 06/06/2017 oxycodone hcl 30 mg tablet 120 30 Macrina, Rudy Pham MD 05/12/2017 05/17/2017 dextroamp-amphetamin 30 mg tab 90 30 Macrina, Rudy Pham MD 05/12/2017 05/12/2017 oxycodone hcl 30 mg tablet 120 30 Macrina, Rudy Pham MD 04/20/2017 04/20/2017 oxycodone hcl 30 mg tablet 90 30 MacrinaRudy tamayo MD 04/20/2017 04/20/2017 dextroamp-amphetamin 30 mg tab 60 30 MacrinaRudy lozano MD 04/20/2017 04/20/2017 alprazolam 2 mg tablet 120 30 MacrinaRudy tamayo MD 03/23/2017 03/23/2017 alprazolam 2 mg tablet 120 30 MacrinaRudy tamayo MD 03/23/2017 03/23/2017 oxycodone hcl 20 mg tablet 180 30 MacrinaRudy tamayo MD 03/23/2017 03/23/2017 dextroamp-amphetamin 30 mg tab 60 30 MacrinaRudy lozano MD - History Source History Provided By: Patient, Medical Record, Caregiver Limitations to Obtaining History: No Limitations - Alcohol/Substance Use Hx Alcohol Use: No Hx Substance Use: Yes (mdma, opioids, aderral, benzodiazepines) Hx Substance Use Treatment: Yes ([facility] - Current Drug/Alcohol Use Alprazolam (Xanax) Route: Oral Frequency: Daily Amount used: 2mg tid Age of first use: 30 Date of Last Use: 02/26/18 Ectasy Frequency: Daily Amount used: bid liquid Age of first use: 30 Date of Last Use: 02/24/18 - Significant Medical Findings: 37yo m with h/o poysubustance use, including opioids, was detoxed at [facility] with agonist therapy but is prescribedoxycodoen for pain which he says he is nto taking, takes adderrall daily as prescribed for adhd and xanax for anxiety came to ed after running out of medication and was i withdrawal given xanax as per microelectronics assembler prescriptiion, patient is refusing xanax detox. wants to stop using ghb, denies need for opioid detox. medically stable, no signs of withdrwaql sx CIWA Score - CIWA Score Nausea/Vomitin-No Nausea/No Vomiting Muscle Tremors: None Anxiety: 0-No Anxiety, at Ease Agitation: 0-Normal Activity Paroxysmal Sweats: No Perspiration Orientation: 0-Oriented Tacttile Disturbances: 0-None Auditory Disturbances: 0-None Visual Disturbances: 0-None Headache: 0-None Present CIWA-Ar Total Score: 0 Assessment Plan - Diagnosis (1) Insomnia Status: Acute (2) Sedative, hypnotic or anxiolytic dependence with withdrawal, uncomplicated Status: Acute (3) Substance induced mood disorder Status: Acute (4) ADHD (attention deficit hyperactivity disorder) Status: Chronic Comment: Self-report.Patient declines to take psychostimulant during this hospital course. (5) Insulin dependent diabetes mellitus Status: Chronic Comment: last BGM 284 - Plan Plan: chart, imaging and labs reviewed. patient examined and history taken, case discussed with medical staff. Recommend: 1. fluids, vitamins as ordered. 2. opioid use diorder - patient denies using opioids including borrego medications as prescribed, throws them out, no detox or treatment needed,. 3. benzodiazepine use - prescribed - refusing detox, 4. liquid ecstasy dependence - has therapist at intensive outpatient facility which he should] return to, can not go to rehab on controlled substances. 5. can refer to [facility] if neede - where he has been in treatment before. 6. DM - as per primary tuyet, medically stable - Medication Detox Regimen/Protocol: Not Applicable
[2018-02-26] MEDS ORDERED: diazePAM 5 MG TABLET PO PRN (12:30)
[2018-02-26] MEDS ORDERED: diazePAM 5 MG TABLET PO ONE (12:30)
[2018-02-26] MEDS ORDERED: ONDANSETRON *ODT* 4 MG TABLET SL PRN (12:31)
[2018-02-26] MEDS ORDERED: diazePAM 5 MG TABLET PO SCH (14:00)
[2018-02-26] MEDS: ALPRAZolam 2 MG TABLET PO PRN ×2 (16:20→23:31)
[2018-02-26] MEDS ORDERED: INSULIN (NOVOLOG) ASPART 100 UNITS/ML 10ML VIAL SQ SCH (16:30)
[2018-02-26] MEDS ORDERED: THIAMINE HCL 100 MG TABLET (FP) PO SCH (22:00)
--- NOTE | 2018-02-27 06:17 | PN ---
Physical Exam: SUBJECTIVE: Patient seen and examined by me this AM - No overnight events. Pt on oral meds now. Pt w/ no complaints. Denies agitation, anxiousness, insomnia. Denies f/c/n/v/d, PACK, dizziness, cp, cough, sob, ab pain, peripheral numbness/weakness. Denies hallucinations or cravings. Anticipate discharge today. OBJECTIVE: Vital Signs Intake & Output 02/24/18 02/25/18 02/26/18 02/27/18 23:59 23:59 23:59 23:59 Intake Total 750 1740 120 Output Total 500 Balance 250 1740 120 Weight 99.79 kg 100.357 kg Period Temp Pulse Resp BP Sys/Medrano Pulse Ox Last 24 Hr 97.7 F-98.6 F 63-89 16-20 125-141/67-84 99-99 GENERAL: Middle aged man, NAD, A&Ox3 HEAD: Normal with no signs of trauma. EYES: Pupils equal, round and reactive to light, extraocular movements intact, sclera anicteric, conjunctiva clear. No lid lag. EARS, NOSE, THROAT: Ears normal, nares patent, oropharynx clear without exudates. Moist mucous membranes. NECK: No JVD, supple, no lymphadenopathy LUNGS: Breath sounds equal, clear to auscultation bilaterally. No wheezes, and no crackles. No accessory muscle use. HEART: Regular rate and rhythm, normal S1 and S2 without murmur, rub or gallop. ABDOMEN: Soft, Nontender, not distended, normoactive bowel sounds, no guarding, no rebound, no masses. No hepatomegaly or splenomegaly. Still with psoriatic rash on anterior abdomen in subxiphoid and umbilical area. Ventral hernia noted. MUSCULOSKELETAL: Normal range of motion at all joints. No bony deformities or tenderness. No CVA tenderness. UPPER EXTREMITIES: 2+ pulses, warm, well-perfused. No cyanosis. No clubbing. No peripheral edema. LOWER EXTREMITIES: 2+ pulses, warm, well-perfused. No calf tenderness. No peripheral edema. NEUROLOGICAL: Cranial nerves II-XII intact. 5/5 strength and preserved sensation in all extremities. PSYCHIATRIC: Cooperative, pleasant affect Laboratory Results - last 24 hr CBC, BMP 02/26/18 06:25 02/26/18 06:25 02/26/18 02/26/18 02/26/18 06:25 06:25 06:25 WBC 4.4 RBC 4.91 Hgb 15.7 Hct 46.8 MCV 95.4 MCH 32.0 MCHC 33.6 RDW 13.9 Plt Count 154 MPV 10.3 Neutrophils % 61.0 Lymphocytes % 27.2 D Monocytes % 9.2 Eosinophils % 1.8 D Basophils % 0.8 Sodium 142 Potassium 4.2 Chloride 105 Carbon Dioxide 30 Anion Gap 7 L BUN 11 D Creatinine 0.8 D Creat Clearance w eGFR > 60 POC Glucometer Random Glucose 115 H Calcium 8.7 Phosphorus 3.6 D Magnesium 2.1 D Total Bilirubin 0.7 AST 42 H D ALT 49 Alkaline Phosphatase 64 Creatine Kinase 598 H Creatine Kinase Index 0.8 CK-MB (CK-2) 5.184 H Total Protein 6.0 L Albumin 3.2 L 02/26/18 02/26/18 02/26/18 06:41 12:17 17:11 WBC RBC Hgb Hct MCV MCH MCHC RDW Plt Count MPV Neutrophils % Lymphocytes % Monocytes % Eosinophils % Basophils % Sodium Potassium Chloride Carbon Dioxide Anion Gap BUN Creatinine Creat Clearance w eGFR POC Glucometer 120 282 254 Random Glucose Calcium Phosphorus Magnesium Total Bilirubin AST ALT Alkaline Phosphatase Creatine Kinase Creatine Kinase Index CK-MB (CK-2) Total Protein Albumin 02/26/18 02/26/18 02/27/18 19:56 21:00 05:54 WBC RBC Hgb Hct MCV MCH MCHC RDW Plt Count MPV Neutrophils % Lymphocytes % Monocytes % Eosinophils % Basophils % Sodium Potassium Chloride Carbon Dioxide Anion Gap BUN Creatinine Creat Clearance w eGFR POC Glucometer 53 206 160 Random Glucose Calcium Phosphorus Magnesium Total Bilirubin AST ALT Alkaline Phosphatase Creatine Kinase Creatine Kinase Index CK-MB (CK-2) Total Protein Albumin Active Medications Generic Name Dose Route Start Last Admin Trade Name Freq PRN Reason Stop Dose Admin Alprazolam 2 mg 02/26/18 13:02 02/26/18 23:31 Xanax - PO 2 mg TID PRN Administration ANXIETY Folic Acid 1 mg 02/25/18 10:30 02/26/18 10:03 Folic Acid Injection - SQ 1 mg DAILY SHANNAN Administration Heparin Sodium (Porcine) 5,000 unit 02/25/18 06:00 02/26/18 21:56 Heparin - SQ 5,000 unit TID SHANNAN Administration Insulin Aspart 1 vial 02/25/18 07:00 02/26/18 21:56 Novolog Vial Sliding Scale - SQ 4 unit ACHS SHANNAN Administration Protocol Insulin Detemir 40 units 02/27/18 07:00 Levemir Vial SQ AM SHANNAN Ondansetron HCl 8 mg 02/26/18 12:31 Zofran Odt - SL Q6H PRN NAUSEA AND/OR VOMITING Multivit/Folic Acid/Iron 1 tab 02/27/18 10:00 Vitamins (Sjr) - PO DAILY SHANNAN Thiamine HCl 100 mg 02/26/18 22:00 02/26/18 21:57 Vitamin B1 - PO 100 mg HS SHANNAN Administration No micro No imaging ASSESSMENT/PLAN: 37 yo man with asthma, DM2, PSA currently on adderall, xanax and GHB w/ prior hx of cocaine and heroine abuse, who presents after visiting [facility] for rehab this AM, found to be hypertensive, hyperglycemic to 300s. Pt remains agitated, anxious. Attempted to AMA in PM, was convinced to stay overnight to monitor for withdrawal symptoms. #Suspected GHB withdrawal vs. Amphetamine intoxication - utox + for amphetamines , benzos - Supportive care - Ativan 1mg IV q4h - Vitals q4h - OOB - Zofran 4mg IV for N/V - Trend M/S - Restarted home Xanax 2mg TID - Detox team consulted, recs appreciated - folate/thiamine - counseled on abstinence - CK downtrending ~600 today #DM2 - Insulin SS - BGMs q4h - Restarted on home Lantus 40u qD AM per pt pharmacy #ADHD - hold adderall in setting of acute agitation FEN PO hydration Daily lytes Diabetic diet PPX HSQ Dispo: Tele obs. Likely dispo tomorrow Plan discussed with attending, Dr. Yunior Carter, PGY1
[2018-02-27] MEDS ORDERED: PT OWN MED DRAWER 7, Y5N ONE ×2 (06:22→09:26)
[2018-02-27] MEDS: INSULIN SLIDING SCALE (NOVOLOG) 1 VIAL SQ SCH ×2 (06:28→11:29)
[2018-02-27] MEDS: HEPARIN NA (PORCINE) 5,000 UNITS/ML 1ML VIAL SQ SCH (06:29)
[2018-02-27] MEDS ORDERED: INSULIN DETEMIR 100 UNITS/ML MDV SQ SCH (07:00)
[2018-02-27] MEDS: ALPRAZolam 2 MG TABLET PO PRN ×2 (09:31→13:13)
[2018-02-27] MEDS ORDERED: PRENATAL VITAMINS W/ FOLIC ACID TABLET (FP) PO SCH (10:00)
--- NOTE | 2018-02-27 10:27 | PN ---
S Progress Note (SOAP) Subjective: patient without complaint, reports hyngry - using liquid ghb, not mdma or xtc as he previously described drug. explained he may be replacing one drug with another by d/c medication assisted treatment for opioid dependence. Objective: 02/27/18 16:47 Vital Signs - 24 hr 02/26/18 02/26/18 02/27/18 21:00 22:00 01:00 Temperature 98.6 F 98.0 F Pulse Rate Respiratory 20 18 Rate Blood Pressure 128/76 133/74 O2 Sat by Pulse 99 Oximetry (%) 02/27/18 02/27/18 05:00 09:00 Temperature 97.7 F 98.3 F Pulse Rate 63 76 Respiratory 18 18 Rate Blood Pressure 125/67 122/64 O2 Sat by Pulse 99 Oximetry (%) Laboratory Tests 02/24/18 02/24/18 02/24/18 15:50 15:54 15:54 WBC 8.0 RBC 4.66 Hgb 14.9 Hct 44.1 MCV 94.6 MCH 31.9 MCHC 33.7 RDW 13.8 D Plt Count 158 MPV 10.6 Neutrophils % 74.1 Lymphocytes % 15.7 Monocytes % 9.1 Eosinophils % 0.5 Basophils % 0.6 Sodium 145 Potassium 4.6 Chloride 108 H Carbon Dioxide 28 Anion Gap 9 BUN 16 D Creatinine 1.0 Creat Clearance w eGFR > 60 POC Glucometer 251.80385 Random Glucose 233 H Calcium 8.6 Phosphorus Magnesium Total Bilirubin 0.4 D AST 57 H D ALT 53 D Alkaline Phosphatase 71 Creatine Kinase Creatine Kinase Index CK-MB (CK-2) Troponin I Total Protein 6.4 Albumin 3.5 Lipase 47 L Urine Color Urine Appearance Urine pH Ur Specific [place] Urine Protein Urine Glucose (UA) Urine Ketones Urine Blood Urine Nitrite Urine Bilirubin Urine Urobilinogen Ur Leukocyte Esterase Opiates Screen Methadone Screen Barbiturate Screen Phencyclidine Screen Ur Amphetamines Screen MDMA (Ecstasy) Screen Benzodiazepines Screen Cocaine Screen U Marijuana (THC) Screen 02/24/18 02/24/18 02/24/18 15:54 18:49 18:49 WBC RBC Hgb Hct MCV MCH MCHC RDW Plt Count MPV Neutrophils % Lymphocytes % Monocytes % Eosinophils % Basophils % Sodium Potassium Chloride Carbon Dioxide Anion Gap BUN Creatinine Creat Clearance w eGFR POC Glucometer Random Glucose Calcium Phosphorus Magnesium Total Bilirubin AST ALT Alkaline Phosphatase Creatine Kinase 1812 H Creatine Kinase Index 0.4 CK-MB (CK-2) 8.517 H Troponin I 0.02 Total Protein Albumin Lipase Urine Color Ltyellow Urine Appearance Clear Urine pH 7.0 D Ur Specific [place] 1.029 Urine Protein Negative Urine Glucose (UA) 3+ H Urine Ketones 1+ H Urine Blood Negative Urine Nitrite Negative Urine Bilirubin Negative Urine Urobilinogen 4.0 e.u/dl Ur Leukocyte Esterase Negative Opiates Screen Negative Methadone Screen Negative Barbiturate Screen Negative Phencyclidine Screen Negative Ur Amphetamines Screen Positive MDMA (Ecstasy) Screen Negative Benzodiazepines Screen Positive Cocaine Screen Negative U Marijuana (THC) Screen Negative 02/25/18 02/25/18 02/25/18 05:43 10:52 11:15 WBC 5.1 D RBC 4.77 Hgb 14.9 Hct 45.1 MCV 94.5 MCH 31.3 MCHC 33.1 RDW 13.8 Plt Count 153 MPV 10.0 Neutrophils % 73.6 Lymphocytes % 19.0 D Monocytes % 6.7 Eosinophils % 0.3 Basophils % 0.4 Sodium Potassium Chloride Carbon Dioxide Anion Gap BUN Creatinine Creat Clearance w eGFR POC Glucometer 129 119 Random Glucose Calcium Phosphorus Magnesium Total Bilirubin AST ALT Alkaline Phosphatase Creatine Kinase Creatine Kinase Index CK-MB (CK-2) Troponin I Total Protein Albumin Lipase Urine Color Urine Appearance Urine pH Ur Specific [place] Urine Protein Urine Glucose (UA) Urine Ketones Urine Blood Urine Nitrite Urine Bilirubin Urine Urobilinogen Ur Leukocyte Esterase Opiates Screen Methadone Screen Barbiturate Screen Phencyclidine Screen Ur Amphetamines Screen MDMA (Ecstasy) Screen Benzodiazepines Screen Cocaine Screen U Marijuana (THC) Screen 02/25/18 02/25/18 02/25/18 11:15 16:26 21:39 WBC RBC Hgb Hct MCV MCH MCHC RDW Plt Count MPV Neutrophils % Lymphocytes % Monocytes % Eosinophils % Basophils % Sodium 139 Potassium 3.6 D Chloride 104 Carbon Dioxide 27 Anion Gap 8 BUN 9 D Creatinine 0.6 L D Creat Clearance w eGFR > 60 POC Glucometer 170 88 Random Glucose 120 H D Calcium 8.4 L Phosphorus 2.7 Magnesium 1.6 L Total Bilirubin 0.8 D AST 57 H ALT 50 Alkaline Phosphatase 60 Creatine Kinase 1332 H Creatine Kinase Index 0.4 CK-MB (CK-2) 5.461 H Troponin I 0.03 D Total Protein 5.9 L Albumin 3.2 L Lipase Urine Color Urine Appearance Urine pH Ur Specific [place] Urine Protein Urine Glucose (UA) Urine Ketones Urine Blood Urine Nitrite Urine Bilirubin Urine Urobilinogen Ur Leukocyte Esterase Opiates Screen Methadone Screen Barbiturate Screen Phencyclidine Screen Ur Amphetamines Screen MDMA (Ecstasy) Screen Benzodiazepines Screen Cocaine Screen U Marijuana (THC) Screen 02/26/18 02/26/18 02/26/18 01:25 06:25 06:25 WBC 4.4 RBC 4.91 Hgb 15.7 Hct 46.8 MCV 95.4 MCH 32.0 MCHC 33.6 RDW 13.9 Plt Count 154 MPV 10.3 Neutrophils % 61.0 Lymphocytes % 27.2 D Monocytes % 9.2 Eosinophils % 1.8 D Basophils % 0.8 Sodium 142 Potassium 4.2 Chloride 105 Carbon Dioxide 30 Anion Gap 7 L BUN 11 D Creatinine 0.8 D Creat Clearance w eGFR > 60 POC Glucometer 122 Random Glucose 115 H Calcium 8.7 Phosphorus 3.6 D Magnesium 2.1 D Total Bilirubin 0.7 AST 42 H D ALT 49 Alkaline Phosphatase 64 Creatine Kinase Creatine Kinase Index CK-MB (CK-2) Troponin I Total Protein 6.0 L Albumin 3.2 L Lipase Urine Color Urine Appearance Urine pH Ur Specific [place] Urine Protein Urine Glucose (UA) Urine Ketones Urine Blood Urine Nitrite Urine Bilirubin Urine Urobilinogen Ur Leukocyte Esterase Opiates Screen Methadone Screen Barbiturate Screen Phencyclidine Screen Ur Amphetamines Screen MDMA (Ecstasy) Screen Benzodiazepines Screen Cocaine Screen U Marijuana (THC) Screen 02/26/18 02/26/18 02/26/18 06:25 06:41 12:17 WBC RBC Hgb Hct MCV MCH MCHC RDW Plt Count MPV Neutrophils % Lymphocytes % Monocytes % Eosinophils % Basophils % Sodium Potassium Chloride Carbon Dioxide Anion Gap BUN Creatinine Creat Clearance w eGFR POC Glucometer 120 282 Random Glucose Calcium Phosphorus Magnesium Total Bilirubin AST ALT Alkaline Phosphatase Creatine Kinase 598 H Creatine Kinase Index 0.8 CK-MB (CK-2) 5.184 H Troponin I Total Protein Albumin Lipase Urine Color Urine Appearance Urine pH Ur Specific [place] Urine Protein Urine Glucose (UA) Urine Ketones Urine Blood Urine Nitrite Urine Bilirubin Urine Urobilinogen Ur Leukocyte Esterase Opiates Screen Methadone Screen Barbiturate Screen Phencyclidine Screen Ur Amphetamines Screen MDMA (Ecstasy) Screen Benzodiazepines Screen Cocaine Screen U Marijuana (THC) Screen 02/26/18 02/26/18 02/26/18 17:11 19:56 21:00 WBC RBC Hgb Hct MCV MCH MCHC RDW Plt Count MPV Neutrophils % Lymphocytes % Monocytes % Eosinophils % Basophils % Sodium Potassium Chloride Carbon Dioxide Anion Gap BUN Creatinine Creat Clearance w eGFR POC Glucometer 254 53 206 Random Glucose Calcium Phosphorus Magnesium Total Bilirubin AST ALT Alkaline Phosphatase Creatine Kinase Creatine Kinase Index CK-MB (CK-2) Troponin I Total Protein Albumin Lipase Urine Color Urine Appearance Urine pH Ur Specific [place] Urine Protein Urine Glucose (UA) Urine Ketones Urine Blood Urine Nitrite Urine Bilirubin Urine Urobilinogen Ur Leukocyte Esterase Opiates Screen Methadone Screen Barbiturate Screen Phencyclidine Screen Ur Amphetamines Screen MDMA (Ecstasy) Screen Benzodiazepines Screen Cocaine Screen U Marijuana (THC) Screen 02/27/18 02/27/18 05:54 11:24 WBC RBC Hgb Hct MCV MCH MCHC RDW Plt Count MPV Neutrophils % Lymphocytes % Monocytes % Eosinophils % Basophils % Sodium Potassium Chloride Carbon Dioxide Anion Gap BUN Creatinine Creat Clearance w eGFR POC Glucometer 160 269 Random Glucose Calcium Phosphorus Magnesium Total Bilirubin AST ALT Alkaline Phosphatase Creatine Kinase Creatine Kinase Index CK-MB (CK-2) Troponin I Total Protein Albumin Lipase Urine Color Urine Appearance Urine pH Ur Specific [place] Urine Protein Urine Glucose (UA) Urine Ketones Urine Blood Urine Nitrite Urine Bilirubin Urine Urobilinogen Ur Leukocyte Esterase Opiates Screen Methadone Screen Barbiturate Screen Phencyclidine Screen Ur Amphetamines Screen MDMA (Ecstasy) Screen Benzodiazepines Screen Cocaine Screen U Marijuana (THC) Screen hyperglycemia, a and ox3, no sins of withdrawal Assessment: 02/27/18 16:47 no inpatietn care needed for substance use diorder, severe as it may be refer for follow up at the outpatient clinic whre he is currently a patient, patient refuses MAT with suboxone offered, including in hospital induction.
[2018-02-27] MEDS ORDERED: INSULIN (NOVOLOG) ASPART 100 UNITS/ML 10ML VIAL ONE (11:25)
[2018-02-27 12:11] VITALS: BP 122/64; PULSE 76; TEMP 98.3
[2018-02-27] MEDS: FOLIC ACID 5 MG/1 ML SQ SCH (12:23)
--- NOTE | 2018-02-27 14:51 | PN ---
Teaching Attending Note Name of Resident: Navarro Carter ATTENDING PHYSICIAN STATEMENT I saw and evaluated the patient. I reviewed the resident's note and discussed the case with the resident. I agree with the resident's findings and plan as documented. SUBJECTIVE:asymptomatic. denies CP, SOB, fever, chills, N/V/C/D, auditory/visual /tactile hallucinations OBJECTIVE: Last Vital Signs Temp Pulse Resp BP Pulse Ox 98.3 F 76 18 122/64 99 02/27/18 09:00 02/27/18 09:00 02/27/18 09:00 02/27/18 09:00 02/27/18 09:00 General NAD HEENT PERLL, no nystagmus Lungs CTA B/L no wheezing/ralesr/honchi CV S1 S2 RRR no murmur/rub/gallop extremities no tremors ASSESSMENT AND PLAN: 37 yo M with PMhx of polysubstance abuse (GHB, ?heroine/cocaine), using GHB q3h per records, IDDM, neuropathy, asthma, ADHD on adderall, sent with acute GHB withdrawal 1. Acute GHB withdrawal, vs Amphetemine toxicity (unlikely)- now resolved. is not displaying any signs of withdrawals. minimal xanax used. discuss with pt about drug abstinence and risks assoc with continued use. pt refusing inpatient rehab. agreeable to going to NA meetings. encouraged on getting a sponser and following the steps with being sober. recommended following closely [facility] PMD for possible xanax taper off as he has been dependent on for some time and abuse potential with medications 2. Rhabdo- resolved 3. ADHD on Adderall 4. DM- controlled on current regimen. instructed to cont levemir 40 units AM and iss. document sugars and Units of insulin administered and bring with him to next PMD appt for possible adjustment. states at home uses considerable more insulin but does eat a lot more at home. states he will monitor his intake to see if it improves. 5. d/c home
--- NOTE | 2018-02-27 16:35 | DS ---
Physical Exam: SUBJECTIVE: Patient seen and examined - No overnight events. Pt on oral meds now. Pt w/ no complaints. Denies agitation, anxiousness, insomnia. Denies f/c/n/v/d, PACK, dizziness, cp, cough, sob, ab pain, peripheral numbness/weakness. Denies hallucinations or cravings. Anticipate discharge today. OBJECTIVE: Vital Signs Intake & Output 02/24/18 02/25/18 02/26/18 02/27/18 23:59 23:59 23:59 23:59 Intake Total 750 1740 620 Output Total 500 Balance 250 1740 620 Weight 99.79 kg 100.357 kg Period Temp Pulse Resp BP Sys/Medrano Pulse Ox Last 24 Hr 97.7 F-98.6 F 63-76 18-20 122-133/64-76 99-99 PHYSICAL EXAM GENERAL: Middle aged man, NAD, A&Ox3 HEAD: Normal with no signs of trauma. EYES: Pupils equal, round and reactive to light, extraocular movements intact, sclera anicteric, conjunctiva clear. No lid lag. EARS, NOSE, THROAT: Ears normal, nares patent, oropharynx clear without exudates. Moist mucous membranes. NECK: No JVD, supple, no lymphadenopathy LUNGS: Breath sounds equal, clear to auscultation bilaterally. No wheezes, and no crackles. No accessory muscle use. HEART: Regular rate and rhythm, normal S1 and S2 without murmur, rub or gallop. ABDOMEN: Soft, Nontender, not distended, normoactive bowel sounds, no guarding, no rebound, no masses. No hepatomegaly or splenomegaly. Still with psoriatic rash on anterior abdomen in subxiphoid and umbilical area. Ventral hernia noted. MUSCULOSKELETAL: Normal range of motion at all joints. No bony deformities or tenderness. No CVA tenderness. UPPER EXTREMITIES: 2+ pulses, warm, well-perfused. No cyanosis. No clubbing. No peripheral edema. LOWER EXTREMITIES: 2+ pulses, warm, well-perfused. No calf tenderness. No peripheral edema. NEUROLOGICAL: Cranial nerves II-XII intact. 5/5 strength and preserved sensation in all extremities. PSYCHIATRIC: Cooperative, pleasant affect LABS Laboratory Results - last 24 hr CBC, BMP 02/26/18 06:25 02/26/18 06:25 02/26/18 02/26/18 02/26/18 17:11 19:56 21:00 POC Glucometer 254 53 206 02/27/18 02/27/18 05:54 11:24 POC Glucometer 160 269 No micro No imaging HOSPITAL COURSE: Prehospital course: 37 yo man with asthma, DM2, PSA currently on adderall, xanax and GHB w/ prior hx of cocaine and heroine abuse, who presents after visiting [facility] for rehab this AM, found to be hypertensive, hyperglycemic to 300s. Per pt, attempted to enter detox program at [facility] this AM at the behest of his . Recently took GHB around 5AM this morning, of which he takes "7 cc's" every three hours for the past 6-12 months. Pt also endorses chronic xanax and adderall abuse, however does endorse a rx. Pt states he gets his GHB supply from "a friend". Pt found at [facility] with BG 310, BP 180/120, with severe diaphoresis, flushing, tachycardia and agitation. EMS was activated and pt was brought to ED. Per pt, he denies PACK, lightheadedness, photophobia/phonophobia, hallucinations, CP, ab pain, back pain, f/c. He does endorses palpitations, occasional SOB and intermittent nausea, but has not vomiting. He similarly endorses multiple days of insomnia. In ED, pt A&Ox1, pulling IV lines and wandering out of bed. Has not been aggressive toward staff. Received multiple doses of ativan for agitation with good effect, 1x haldol. Hospital course: In ED, vitals notable for htn to 158/95. Pt altered, very anxious on exam. Labs notable for BG 233, CK of 1812, U tox + for amphetamines and benzos, UA notable for 3+ glucose/1+ ketones. No imaging or micro ordered. Pt received Ativan x4, able to sleep with this sedation regimen, ordered for standing ativan PRN. Pt improved overnight, still endorsing insomnia, anxiety. Pt threatened to leave AMA due to not receiving his home Xanax. Restarted on home Xanax rx, which improved anxiety. Home adderall held due to acute AMS, agitation. Pt improved significantly with symptomatic management, IV fluids. CK downtrended to 600 on discharge. Pt intermittently noncompliant however, pulling out IV lines and pacing the floors. Stated he wants to stop using GHB. Back to baseline on Day 3 admission, VSS, no hallucinations or acute agitation/anxiety. Pt counseled on importance of abstinence, offered detox program which he refused. Pt discharged home. Of note, pt sent out on insulin SS, home levemir dose, counseled to f/u with PCP for further adjustment of regimen. Date of Admission:02/25/18 Date of Discharge: 02/27/18 Pt is medically stable and cleared for discharge with outpt f/u with PCP in one week for further management of medications. Pt offered inpatient rehab program, refused. Minutes to complete discharge: 35 Discharge Summary Reason For Visit: OPIOID WITHDRAWL Condition: Stable - Instructions Diet, Activity, Other Instructions: During your stay at [facility], you were treated for acute GHB withdrawal. You were treated with symptom management and are not stable with minimal withdrawal symptoms. You are being discharged home given your clinical improvement. Please abstain from using illicit substances as they can be detrimental to your health and lead to . PLease refer to handout on local AA and NA meeting to help with support in the community. Medications- Medication changes: Please take your home dose of Lantus 40mg every morning, as previously prescribed by your primary care doctor. You are being sent home with a Novolog sliding scale for blood sugar coverage. Please use a Novolog dose consistent with the below table after checking your blood sugar with meals: Blood sugar Novolog Dose 0-150 0 Units 150-200 2 Units 200-250 4 Units 250-300 6 Units 300-350 8 Units 350-400 10 Units Above 400 Take 12 units and call your primary care physician Please stop taking your home humalog dose until you have been seen by your primary care physician and further adjustments can be made. Please abide by the sliding scale above instead. Please continue to take all other home medications as previously directed. Please check your blood sugars regularly and record your levels and how much insulin coverage you are giving yourself and bring this with you to your next doctors appointment so that your insulin could continue to be adjusted. Follow-ups: Please follow-up with your primary care physician in one week for further management of your medications. Please call their office to schedule an appointment. Also, please speak with your primary doctor above potentially weaning off your home Xanax, as this medication can be addictive and habit forming. Diet/exercise: Please stop taking GHB, as this drug is unsafe and has a large abuse potential. Taking this drug can also lead to respiratory failure and . Please return to the hospital if you experience any of the following symptoms: - Persistent palpitations, elevated heart rate - Severe, prolonged periods of anxiety or agitation - Drastically elevated blood pressure - Prolonged insomnia for multiple days - Any new or concerning symptoms Referrals: Rudy Schrader MD [Primary Care Provider] - 1 Week Disposition: HOME - Home Medications Comprehensive Discharge Medication List: Ambulatory Orders Insulin Glargine,Hum.rec.anlog [Lantus Solostar PEN -] 40 units SQ AM 07/07/15 Insulin Lispro [Humalog Kwikpen U-100] 12 unit SQ TID 07/07/15 Alprazolam [Xanax] 2 mg PO TID 02/24/18 Oxycodone HCl 30 mg PO QID PRN 02/24/18 Dextroamphetamine/Amphetamine [Adderall 10 mg Tablet] 30 mg PO TID 02/26/18 Insulin Aspart [Novolog] 100 unit SQ ACHS #1 vial 02/27/18 This patient is new to me today: No Emergency Visit: Yes ED Registration Date: 02/25/18 Care time: The patient presented to the Emergency Department on the above date and was hospitalized for further evaluation of their emergent condition. Critical Care patient: No - Discharge Referral Referred to [facility] Med P.C.: No
[2018-02-28] MEDS ORDERED: diazePAM 5 MG TABLET PO SCH (10:00)
[2018-03-02] MEDS ORDERED: diazePAM 5 MG TABLET PO SCH (10:00)
== END 2018-02-27 14:33 | disposition home or self-care (01) | DRG 773 ==
LOC: JER 15:00 → UNDOADMOB 20:43 → JERBED 20:43 → J6S 02-25 04:05 → OBSVTOIN 02-25 10:21
PROVIDERS: ADMIT Internal Medicine; ATTEND Internal Medicine
DX: F19.230 Other psychoactive substance dependence with withdrawal, uncomplicated (principal); G92 Toxic encephalopathy; E11.40 Type 2 diabetes mellitus with diabetic neuropathy, unspecified; E11.65 Type 2 diabetes mellitus with hyperglycemia; F11.20 Opioid dependence, uncomplicated; M62.82 Rhabdomyolysis; J45.909 Unspecified asthma, uncomplicated; M51.26 Other intervertebral disc displacement, lumbar region; Z79.4 Long term (current) use of insulin; I10 Essential (primary) hypertension; F14.10 Cocaine abuse, uncomplicated; F90.1 Attention-deficit hyperactivity disorder, predominantly hyperactive type; R00.0 Tachycardia, unspecified; R44.1 Visual hallucinations; G47.00 Insomnia, unspecified
CPT/HCPCS: 36415; 80053; 80307; 81003; 82550; 82553; 82962; 83690; 83735; 84100; 84484; 85025; 93005; 93010; 99285-25; G0378; J1644; J7030

== ENCOUNTER 2019-02-08 18:14 | Inpatient (IN) | payer OTHER ==
[2019-02-08 20:29] VITALS: BMI 26.9
--- NOTE | 2019-02-08 23:57 | HP ---
CIWA Score Nausea/Vomitin-No Nausea/No Vomiting Muscle Tremors: 3 Anxiety: 2 Agitation: 3 Paroxysmal Sweats: 3 (Increased facial moisture) Orientation: 1-Uncertain about Date Tacttile Disturbances: 0-None Auditory Disturbances: 0-None Visual Disturbances: 0-None Headache: 0-None Present CIWA-Ar Total Score: 12 - Admission Criteria OAS Guidelines: Admission for Medically Managed Detox: Requires at least one of the followin. CIWA greater than 12 2. Seizures within the past 24 hours 3. Delirium tremens within the past 24 hours 4. Hallucinations within the past 24 hours 5. Acute intervention needed for co occurring medical disorder 6. Acute intervention needed for co occurring psychiatric disorder 7. Severe withdrawal that cannot be handled at a lower level of care (continued vomiting, continued diarrhea, abnormal vital signs) requiring intravenous medication and/or fluids 8. Patient presents the following: CIWA greater than 12 (Patient had a seizure 2 days ago.) Admission Criteria Met: Admission criteria met Admission ROS [facility] Chief Complaint: Xanax withdrawal. Allergies/Adverse Reactions: Allergies Allergy/AdvReac Type Severity Reaction Status Date / Time No Known Allergies Allergy Verified 01/04/18 17:06 History of Present Illness: Patient wants to detox from Xanax. [facility] has been taking more than prescribed. [facility] takes about 8 - 2 mg Xanax (16 mg daily) in the past 2 weeks. [facility] was in [facility] x 2 days. [facility] was admitted for overdose of Xanax and convulsions. [facility] released today. Did not bring documentation. Denies hx blackouts. PMHx: IDDM, neuropathy - BLE. bulging discs in neck, eczema, abdominal hernias MHHx: Denies depression. Denies thoughts of harming self or others. [facility] has an appointment for rehab admission at [facility] 02/11/19. Patient Name: Lei Schilling Date: 1980 Address: [address] [place] [address] Sex: Male Rx Written Rx Dispensed Drug Quantity Days Supply Prescriber Name 01/21/2019 01/21/2019 alprazolam 2 mg tablet 120 30 Rudy Schrader MD 12/14/2018 12/14/2018 dextroamp-amphetamin 20 mg tab 90 30 Rudy Schrader MD 12/14/2018 12/14/2018 alprazolam 2 mg tablet 90 30 Macrina, Rudy Pham MD 12/14/2018 12/14/2018 oxycodone hcl 20 mg tablet 100 30 Macrina, Rudy Pham MD 11/14/2018 11/15/2018 dextroamp-amphetamin 20 mg tab 90 30 Macrina, Rudy Pham MD 11/14/2018 11/14/2018 oxycodone hcl 20 mg tablet 120 30 Macrina, Rudy Pham MD 11/14/2018 11/14/2018 alprazolam 2 mg tablet 120 30 Macrina, Rudy Pham MD 10/16/2018 10/16/2018 oxycodone hcl 20 mg tablet 120 30 Macrina, Rudy Pham MD 10/16/2018 10/16/2018 dextroamp-amphetamin 20 mg tab 90 30 Macrina, Rudy Pham MD 10/16/2018 10/16/2018 alprazolam 2 mg tablet 120 30 Macrina, Rudy Pham MD 09/14/2018 09/15/2018 alprazolam 2 mg tablet 120 30 Macrina, Rudy Pham MD 09/14/2018 09/15/2018 dextroamp-amphetamin 30 mg tab 90 30 Macrina, Rudy Pham MD 09/14/2018 09/15/2018 oxycodone hcl 30 mg tablet 120 30 Macrina, Rudy Pham MD 08/21/2018 08/22/2018 dextroamp-amphetamin 30 mg tab 90 30 Macrina, Rudy Pham MD 08/21/2018 08/22/2018 oxycodone hcl 30 mg tablet 120 30 Macrina, Rudy Pham MD 08/21/2018 08/22/2018 alprazolam 2 mg tablet 120 30 Macrina, Rudy Pham MD 07/19/2018 07/29/2018 oxycodone hcl 20 mg tablet 120 20 Macrina, Rudy Pham MD 07/19/2018 07/19/2018 alprazolam 2 mg tablet 120 30 Macrina, Rudy Pham MD 07/19/2018 07/19/2018 dextroamp-amphetamin 30 mg tab 90 30 Macrina, Rudy Pham MD 06/18/2018 06/21/2018 dextroamp-amphetamin 30 mg tab 90 30 Macrina, Rudy Pham MD 06/18/2018 06/21/2018 oxycodone hcl 20 mg tablet 120 30 Macrina, Rudy Pham MD 06/18/2018 06/21/2018 alprazolam 2 mg tablet 120 30 Macrina, Rudy Pham MD 05/18/2018 05/18/2018 dextroamp-amphetamin 20 mg tab 90 30 Macrina, Rudy Pham MD 05/18/2018 05/18/2018 alprazolam 1 mg tablet 90 30 Macrina, Rudy Pham MD 05/18/2018 05/18/2018 oxycodone hcl 20 mg tablet 90 30 Macrina, Rudy Pham MD 04/10/2018 04/25/2018 alprazolam 2 mg tablet 120 30 Macrina, Rudy Pham MD 04/10/2018 04/15/2018 dextroamp-amphetamin 30 mg tab 90 30 Macrina, Rudy Pham MD 04/10/2018 04/15/2018 oxycodone hcl 30 mg tablet 120 30 Macrina, Rudy Pham MD 03/14/2018 03/20/2018 dextroamp-amphetamin 30 mg tab 90 30 Macrina, Rudy Pham MD 03/14/2018 03/18/2018 oxycodone hcl 30 mg tablet 90 23 Macrina, Rudy Pham MD 02/19/2018 02/20/2018 oxycodone hcl 30 mg tablet 120 30 Macrina, Rudy Pham MD 02/19/2018 02/20/2018 alprazolam 2 mg tablet 90 30 Macrina, Rudy Pham MD 02/19/2018 02/20/2018 dextroamp-amphetamin 30 mg tab 90 30 Macrina, Rudy Pham MD Patient Name: Lei Schilling Date: 1980 Address: [address] [place] [address] Sex: Male Rx Written Rx Dispensed Drug Quantity Days Supply Prescriber Name 03/13/2018 03/13/2018 alprazolam 2 mg tablet 90 30 Dawit Mendosa MD Exam Limitations: No Limitations - Ebola screening Have you traveled outside of the country in the last 21 days: No (N) Have you had contact with anyone from an Ebola affected area: No Have you been sick,other than usual withdrawal symptoms: No Do you have a fever: No - Review of Systems Constitutional: Diaphoresis, Changes in sleep (Difficulty falling asleep.) EENT: reports: Blurred Vision, Other (Snores. States hx sleep apnea. Denies CPAP machine use.) Respiratory: reports: No Symptoms reported Cardiac: reports: No Symptoms Reported GI: reports: Indigestion (Acid reflux - intermittent. RX'd in pasr w/ Nexium) : reports: No Symptoms Reported Musculoskeletal: reports: No Symptoms Reported Integumentary: reports: No Symptoms Reported, Rash (Eczema) Neuro: reports: Headache, Other (Neuropathy w/ symptoms of sharp, achy pins and needle type pain - resolved w/ gabapentin and baclofen.) Endocrine: reports: No Symptoms Reported Hematology: reports: No Symptoms Reported Psychiatric: reports: Judgement Intact, Anxious, other (Missed date/days by 2) Patient History - Patient Medical History Hx Anemia: No Hx Asthma: Yes Hx Chronic Obstructive Pulmonary Disease (COPD): No Hx Cancer: No Hx Cardiac Disorders: No Hx Congestive Heart Failure: No Hx Hypertension: No Hx Hypercholesterolemia: No Hx Pacemaker: No HX Cerebrovascular Accident: No Hx Seizures: No Hx Dementia: No Hx Diabetes: Yes (IDDM) Hx Gastrointestinal Disorders: No Hx Liver Disease: No Hx Genitourinary Disorders: No Hx Sexually Transmitted Disorders: No Hx Renal Disease (ESRD): No Hx Thyroid Disease: No Hx Human Immunodeficiency Virus (HIV): No (negative) Hx Hepatitis C: No (negative) Hx Depression: No Hx Suicide Attempt: No (denies) Hx Bipolar Disorder: No Hx Schizophrenia: No - Patient Surgical History Past Surgical History: Yes Other Surgical History: L mandible fx in 2006 R cheekbone fx - PPD History Previous Implant?: Yes Documented Results: Negative w/o proof Implanted On Prior [facility] Admission?: Yes Date: 01/13/17 PPD to be Administered?: Yes - Smoking Cessation Smoking history: Never smoked Have you smoked in the past 12 months: No Aproximately how many cigarettes per day: 0 Hx Chewing Tobacco Use: No Initiated information on smoking cessation: No - Substance & Tx. History Hx Alcohol Use: No Substance Use Type: None, Cocaine (stopped 5 years ago ), Heroin (stopped 3 years ago), Tranquilizers (Takes more than prescribed Xanax and is requesting detox) Hx Substance Use Treatment: Yes (detox, rehab) - Substances Abused Alprazolam (Xanax) Route: Oral Admission Physical Exam [facility] - Vital Signs Vital Signs: Vital Signs - 24 hr 02/08/19 20:27 Temperature 96.8 F L Pulse Rate 110 H Respiratory 18 Rate Blood Pressure 111/75 - Physical General Appearance: Yes: Nourished, Appropriately Dressed, Mild Distress, Irritable, Sweating, Anxious HEENTM: Yes: EOMI, Hearing grossly Normal, Normocephalic, Normal Voice, SHASHANK, Pharynx Normal Respiratory: Yes: Lungs Clear, Normal Breath Sounds, No Respiratory Distress Neck: Yes: No masses,lesions,Nodules, Supple Breast: Yes: Breast Exam Deferred Cardiology: Yes: Regular Rhythm, S1, S2, Tachycardia Abdominal: Yes: Non Tender, Soft, Hernia (Kvng abd bulgings - reducible, non- tender) Genitourinary: Yes: Within Normal Limits Back: Yes: Normal Inspection Musculoskeletal: Yes: full range of Motion, Gait Steady Extremities: Yes: Normal Capillary Refill, Normal Range of Motion Neurological: Yes: heater operator II-XII NML intact, Motor Strength 5/5 Integumentary: Yes: Normal Color, Warm, Diaphoresis (Increased facial moisture) , Rash (abdominal rash - red/silvery/non-tender.) Lymphatic: Yes: Within Normal Limits - Diagnostic (1) History of ADHD Current Visit: Yes Status: Chronic (2) Sedative, hypnotic or anxiolytic dependence with withdrawal, uncomplicated Current Visit: Yes Status: Acute (3) Insulin dependent diabetes mellitus Current Visit: Yes Status: Chronic (4) Eczema Current Visit: Yes Status: Chronic Qualifiers: Eczema type: unspecified Qualified Code(s): L30.9 - Dermatitis, unspecified (5) Neuropathy Current Visit: Yes Status: Acute (6) Seizure Current Visit: No Status: Resolved Comment: States seizure two days prior to admission (on 02/06/19). (7) Tachycardia Current Visit: Yes Status: Acute Cleared for Admission S - Detox or Rehab [facility] Level of Care: Medically Managed Detox Regimen/Protocol: Valium [facility] Breath Alcohol Content Breath Alcohol Content: 0 Urine Drug Screen - Results Drug Screen Negative: No Urine Drug Screen Results: AMP-Amphetamines, BZO-Benzodiazepines Inpatient Rehab Admission - Rehab Decision to Admit Inpatient rehab admission?: No
[2019-02-09] MEDS ORDERED: diazePAM 5 MG TABLET PO ONE (00:47)
[2019-02-09] MEDS ORDERED: ACETAMINOPHEN 325 MG TABLET (FP) PO PRN ×2 (00:47)
[2019-02-09] MEDS ORDERED: MAGNESIUM HYDROX 2400MG/30ML ORAL SUSPENSION 30 ML CUP PO PRN (00:47)
[2019-02-09] MEDS ORDERED: MAGNESIUM CITRATE 300 ML BOTTLE PO PRN (00:47)
[2019-02-09] MEDS ORDERED: IBUPROFEN 400 MG TABLET (FP) PO PRN (00:47)
[2019-02-09] MEDS ORDERED: MAG HYDROX/AL HYDROX/SIMETH 30 ML UNIT-DOSE CUP PO PRN (00:47)
[2019-02-09] MEDS ORDERED: BISMUTH SUBSALICYLATE 524 MG/30 ML UD PO PRN (00:47)
[2019-02-09] MEDS ORDERED: MENTHOL/PHENOL 1 EACH UD MM PRN (00:47)
[2019-02-09] MEDS ORDERED: HYDROCORTISONE 1% TOPICAL CREAM 30 GM TUBE TP PRN (00:55)
[2019-02-09] MEDS: diazePAM 5 MG TABLET PO PRN ×3 (03:19→16:55)
[2019-02-09] MEDS: diazePAM 5 MG TABLET PO SCH ×3 (05:48→21:17)
[2019-02-09] MEDS: BACLOFEN 10 MG TABLET (FP) PO SCH ×3 (05:48→21:16)
[2019-02-09] MEDS ORDERED: INSULIN LISPRO 10 UNIT SQ SCH (07:00)
[2019-02-09] MEDS: INSULIN (LEVEMIR) 100 UNITS/ML UNITS SQ SCH (08:11)
[2019-02-09] MEDS: INSULIN (NOVOLOG) ASPART 100 UNITS/ML 10ML VIAL SQ SCH ×3 (08:12→16:53)
[2019-02-09] MEDS: PRENATAL VITAMINS W/ FOLIC ACID TABLET (FP) PO SCH (10:16)
[2019-02-09 10:47] LABS: HEMATOCRIT 40.6 % (35.4-49); MCH 31.6 pg (25.7-33.7); MCHC 34.5 g/dl (32.0-35.9); MEAN CELL VOLUME 91.6 fl (80-96); MEAN PLT VOLUME 10.6 fl (7.5-11.1); PLATELET COUNT 160 K/MM3 (134-434); RBC 4.43 M/mm3 (4.00-5.60); RDW 13.2 % (11.9-15.9); WHITE BLOOD COUNT 4.6 K/mm3 (4.0-10.0)
[2019-02-09 10:57] LABS: ALBUMIN 3.3 g/dl (3.4-5.0); ALK PHOS 83 U/L (45-117); ANION GAP 7 MMOL/L (8-16); BILIRUBIN,TOTAL 0.3 mg/dL (0.2-1); BLOOD UREA NITROGEN 19 mg/dL (7-18); CALCIUM 8.7 mg/dL (8.5-10.1); CHLORIDE 102 mmol/L (98-107); CO2 31 mmol/L (21-32); CREATININE 0.9 mg/dL (0.55-1.3); GLUCOSE,RANDOM 227 mg/dL (74-106); POTASSIUM 3.6 mmol/L (3.5-5.1); SGOT/AST 29 U/L (15-37); SGPT/ALT 27 U/L (13-61); SODIUM 139 mmol/L (136-145); TOT PROT 5.9 g/dl (6.4-8.2)
[2019-02-09] MEDS ORDERED: INSULIN (NOVOLOG MIX 70/30) 100 UNITS/ML MDV SQ ONE (11:37)
[2019-02-09] MEDS ORDERED: INSULIN (LEVEMIR) 100 UNITS/ML UNITS SQ ONE (13:11)
--- NOTE | 2019-02-09 13:20 | PN ---
[facility] CIWA - CIWA Score Nausea/Vomitin-No Nausea/No Vomiting Muscle Tremors: 2 Anxiety: 3 Agitation: 3 Paroxysmal Sweats: 4-Forehead w/Sweat Beads Orientation: 0-Oriented Tacttile Disturbances: 2-Mild Itch/Numbness/Burn Auditory Disturbances: 0-None Visual Disturbances: 2-Mild Sensitivity Headache: 0-None Present CIWA-Ar Total Score: 16 BHS Progress Note (SOAP) Subjective: Anxious, Sweating, Body Aches. Objective: PATIENT A & O X 3, OBSERVED AMBULATING ON UNIT. IN NO ACUTE DISTRESS. 02/09/19 13:19 Vital Signs Temperature 97.2 F L 02/09/19 09:21 Pulse Rate 109 H 02/09/19 09:21 Respiratory Rate 18 02/09/19 09:21 Blood Pressure 132/84 02/09/19 09:21 O2 Sat by Pulse Oximetry (%) Laboratory Tests 02/09/19 02/09/19 02/09/19 05:47 06:45 07:50 WBC 4.6 RBC 4.43 Hgb 14.0 Hct 40.6 MCV 91.6 MCH 31.6 MCHC 34.5 RDW 13.2 Plt Count 160 MPV 10.6 Sodium Potassium Chloride Carbon Dioxide Anion Gap BUN Creatinine Creat Clearance w eGFR POC Glucometer 40 249 Random Glucose Calcium Total Bilirubin AST ALT Alkaline Phosphatase Total Protein Albumin RPR Titer 02/09/19 02/09/19 02/09/19 07:50 07:50 11:34 WBC RBC Hgb Hct MCV MCH MCHC RDW Plt Count MPV Sodium 139 Potassium 3.6 Chloride 102 Carbon Dioxide 31 Anion Gap 7 L BUN 19 H Creatinine 0.9 Creat Clearance w eGFR 93.46 POC Glucometer > 600 Random Glucose 227 H Calcium 8.7 Total Bilirubin 0.3 AST 29 ALT 27 Alkaline Phosphatase 83 Total Protein 5.9 L Albumin 3.3 L RPR Titer Nonreactive LABS NOTED. Assessment: 02/09/19 13:19 WITHDRAWAL SYMPTOMS. HYPERGLYCEMIA. Plan: CONTINUE DETOX. INCREASE DAILY PO FLUID INTAKE. ACCORDING TO PHARMACIST 'BERTIN' AT PATIENT'S PHARMACY ([facility], [place], [place]), PATIENT HAS BEEN PRESCRIBED LISPRO (REGULAR) INSULIN, 18 UNITS TIDCM AND BASAGLAR (LANTUS) INSULIN, 50 UNITS BID. PATIENT HIMSELF REPORTS THAT, AT HOME, HE CURRENTLY TAKES 10 UNITS OF LISPRO ( REGULAR) INSULIN TID WITH MEALS AND 40 UNITS OF BASAGLAR (LANTUS) INSULIN DAILY IN THE AM. 40 UNITS OF LEVEMIR INSULIN NOT GIVEN EARLIER THIS AM (PATIENT REFUSED AT TIME) . BGM AT 11:34: > 600. ONE-TIME DOSE OF LEVEMIR INSULIN ORDERED STAT. CONTINUE 40 UNITS OF LEVEMIR INSULIN Q AM AND ORDER 10 UNITS OF NOVOLOG INSULIN TIDCM FOR TIME BEING AND CONTINUE TO MONITOR BGM'S.
[2019-02-09] MEDS: METHOCARBAMOL 500 MG TABLET PO PRN (16:55)
[2019-02-09] MEDS: THIAMINE HCL 100 MG TABLET (FP) PO SCH (21:16)
[2019-02-09] MEDS: MELATONIN 5 MG TABLETS PO PRN (21:17)
[2019-02-10] MEDS: diazePAM 5 MG TABLET PO SCH ×2 (05:16→17:30)
[2019-02-10] MEDS: BACLOFEN 10 MG TABLET (FP) PO SCH ×3 (05:16→22:10)
[2019-02-10] MEDS: diazePAM 5 MG TABLET PO PRN ×3 (07:15→22:10)
[2019-02-10] MEDS: METHOCARBAMOL 500 MG TABLET PO PRN (07:15)
[2019-02-10] MEDS ORDERED: INSULIN SLIDING SCALE (NOVOLOG) 1 VIAL SQ ONE (08:27)
[2019-02-10] MEDS: INSULIN (LEVEMIR) 100 UNITS/ML UNITS SQ SCH (08:31)
[2019-02-10] MEDS: INSULIN (NOVOLOG) ASPART 100 UNITS/ML 10ML VIAL SQ SCH ×3 (08:32→17:05)
[2019-02-10] MEDS: PRENATAL VITAMINS W/ FOLIC ACID TABLET (FP) PO SCH (10:09)
--- NOTE | 2019-02-10 11:12 | PN ---
[facility] CIWA - CIWA Score Nausea/Vomitin-No Nausea/No Vomiting Muscle Tremors: 2 Anxiety: 3 Agitation: 3 Paroxysmal Sweats: 2 Orientation: 1-Uncertain about Date Tacttile Disturbances: 0-None Auditory Disturbances: 0-None Visual Disturbances: 0-None Headache: 0-None Present CIWA-Ar Total Score: 11 S Progress Note (SOAP) Subjective: feeling better less tremor mild sweating Objective: 02/10/19 15:27 Vital Signs Temperature 97.9 F 02/10/19 13:48 Pulse Rate 101 H 02/10/19 13:48 Respiratory Rate 20 02/10/19 13:48 Blood Pressure 127/71 02/10/19 13:48 O2 Sat by Pulse Oximetry (%) Laboratory Last Values WBC 4.6 K/mm3 (4.0-10.0) 02/09/19 07:50 RBC 4.43 M/mm3 (4.00-5.60) 02/09/19 07:50 Hgb 14.0 GM/dL (11.7-16.9) 02/09/19 07:50 Hct 40.6 % (35.4-49) 02/09/19 07:50 MCV 91.6 fl (80-96) 02/09/19 07:50 MCH 31.6 pg (25.7-33.7) 02/09/19 07:50 MCHC 34.5 g/dl (32.0-35.9) 02/09/19 07:50 RDW 13.2 % (11.9-15.9) 02/09/19 07:50 Plt Count 160 K/MM3 (134-434) 02/09/19 07:50 MPV 10.6 fl (7.5-11.1) 02/09/19 07:50 Sodium 139 mmol/L (136-145) 02/09/19 07:50 Potassium 3.6 mmol/L (3.5-5.1) 02/09/19 07:50 Chloride 102 mmol/L (98-107) 02/09/19 07:50 Carbon Dioxide 31 mmol/L (21-32) 02/09/19 07:50 Anion Gap 7 MMOL/L (8-16) L 02/09/19 07:50 BUN 19 mg/dL (7-18) H 02/09/19 07:50 Creatinine 0.9 mg/dL (0.55-1.3) 02/09/19 07:50 Creat Clearance w eGFR 93.46 (>60) 02/09/19 07:50 POC Glucometer 295 UNITS (80-120) 02/10/19 11:47 Random Glucose 227 mg/dL (74-106) H 02/09/19 07:50 Calcium 8.7 mg/dL (8.5-10.1) 02/09/19 07:50 Total Bilirubin 0.3 mg/dL (0.2-1) 02/09/19 07:50 AST 29 U/L (15-37) 02/09/19 07:50 ALT 27 U/L (13-61) 02/09/19 07:50 Alkaline Phosphatase 83 U/L (45-117) 02/09/19 07:50 Total Protein 5.9 g/dl (6.4-8.2) L 02/09/19 07:50 Albumin 3.3 g/dl (3.4-5.0) L 02/09/19 07:50 RPR Titer Nonreactive (NONREACTIVE) 02/09/19 07:50 lab noted Assessment: 02/10/19 15:27 withdrawal sx Plan: continue detox
[2019-02-10] MEDS ORDERED: cloNIDine HCL 0.1 MG TABLET PO ONE (11:14)
[2019-02-10] MEDS ORDERED: traZODone HCL 50 MG TABLET (FP) PO ONE (12:00)
[2019-02-10 15:43] LABS: URINE APPEARANCE CLEAR; URINE BILIRUBIN NEGATIVE (<2.0 mg/dL); URINE COLOR YELLOW; URINE GLUCOSE (UA) 3+ (NEGATIVE); URINE KETONE NEGATIVE (NEGATIVE); URINE LEUK ESTERASE NEGATIVE (NEGATIVE); URINE NITRITE NEGATIVE (NEGATIVE); URINE PROTEIN NEGATIVE (NEGATIVE)
--- NOTE | 2019-02-10 17:04 | PN ---
S Progress Note Note: bgm is 92 ,will hold novolog 10 unit before this dinner,bgm monitoring
[2019-02-10] MEDS: THIAMINE HCL 100 MG TABLET (FP) PO SCH (22:10)
[2019-02-10] MEDS: MELATONIN 5 MG TABLETS PO PRN (22:11)
[2019-02-11] MEDS: BACLOFEN 10 MG TABLET (FP) PO SCH (05:39)
[2019-02-11] MEDS ORDERED: diazePAM 5 MG TABLET PO ONE (06:00)
[2019-02-11 06:16] VITALS: BP 118/65; PULSE 86; TEMP 96.5
[2019-02-11] MEDS ORDERED: INSULIN SLIDING SCALE (NOVOLOG) 1 VIAL SQ ONE (06:47)
[2019-02-11] MEDS: INSULIN (NOVOLOG) ASPART 100 UNITS/ML 10ML VIAL SQ SCH (06:52)
[2019-02-11] MEDS: INSULIN (LEVEMIR) 100 UNITS/ML UNITS SQ SCH (06:52)
--- NOTE | 2019-02-11 15:36 | DS ---
[facility] Detox Discharge Summary Admission Date: 02/09/19 Discharge Date: 02/04/19 - History Present History: Sedative Dependence Additional Comments: 38 years old male admitted on 02/08/19 for benzo withdrawal stabilization completed detox regimen aftercare return to primary care provider Dr. Grant Pertinent Past History: keep medication list in wallet bring in medication list and bottles of medication to aftercare update medication list when change of medication bring lab report to aftercare adherence with medication - Physical Exam Results Vital Signs: Vital Signs Temperature 96.5 F L 02/11/19 06:15 Pulse Rate 86 02/11/19 06:15 Respiratory Rate 18 02/11/19 06:15 Blood Pressure 118/65 02/11/19 06:15 O2 Sat by Pulse Oximetry (%) Pertinent Admission Physical Exam Findings: alcohol withdrawal sx Laboratory Last Values WBC 4.6 K/mm3 (4.0-10.0) 02/09/19 07:50 RBC 4.43 M/mm3 (4.00-5.60) 02/09/19 07:50 Hgb 14.0 GM/dL (11.7-16.9) 02/09/19 07:50 Hct 40.6 % (35.4-49) 02/09/19 07:50 MCV 91.6 fl (80-96) 02/09/19 07:50 MCH 31.6 pg (25.7-33.7) 02/09/19 07:50 MCHC 34.5 g/dl (32.0-35.9) 02/09/19 07:50 RDW 13.2 % (11.9-15.9) 02/09/19 07:50 Plt Count 160 K/MM3 (134-434) 02/09/19 07:50 MPV 10.6 fl (7.5-11.1) 02/09/19 07:50 Sodium 139 mmol/L (136-145) 02/09/19 07:50 Potassium 3.6 mmol/L (3.5-5.1) 02/09/19 07:50 Chloride 102 mmol/L (98-107) 02/09/19 07:50 Carbon Dioxide 31 mmol/L (21-32) 02/09/19 07:50 Anion Gap 7 MMOL/L (8-16) L 02/09/19 07:50 BUN 19 mg/dL (7-18) H 02/09/19 07:50 Creatinine 0.9 mg/dL (0.55-1.3) 02/09/19 07:50 Creat Clearance w eGFR 93.46 (>60) 02/09/19 07:50 POC Glucometer 174 UNITS (80-120) 02/11/19 06:25 Random Glucose 227 mg/dL (74-106) H 02/09/19 07:50 Calcium 8.7 mg/dL (8.5-10.1) 02/09/19 07:50 Total Bilirubin 0.3 mg/dL (0.2-1) 02/09/19 07:50 AST 29 U/L (15-37) 02/09/19 07:50 ALT 27 U/L (13-61) 02/09/19 07:50 Alkaline Phosphatase 83 U/L (45-117) 02/09/19 07:50 Total Protein 5.9 g/dl (6.4-8.2) L 02/09/19 07:50 Albumin 3.3 g/dl (3.4-5.0) L 02/09/19 07:50 Urine Color Yellow 02/10/19 14:34 Urine Appearance Clear 02/10/19 14:34 Urine pH 6.0 (5.0-8.0) 02/10/19 14:34 Ur Specific [place] 1.022 (1.010-1.035) 02/10/19 14:34 Urine Protein Negative (NEGATIVE) 02/10/19 14:34 Urine Glucose (UA) 3+ (NEGATIVE) H 02/10/19 14:34 Urine Ketones Negative (NEGATIVE) 02/10/19 14:34 Urine Blood Negative (NEGATIVE) 02/10/19 14:34 Urine Nitrite Negative (NEGATIVE) 02/10/19 14:34 Urine Bilirubin Negative (<2.0 mg/dL) 02/10/19 14:34 Urine Urobilinogen 2.0 mg/dL (0.2-1.0) 02/10/19 14:34 Ur Leukocyte Esterase Negative (NEGATIVE) 02/10/19 14:34 RPR Titer Nonreactive (NONREACTIVE) 02/09/19 07:50 lab noted - Treatment Hospital Course: Detox Protocol Followed, Detoxed Safely, Responded well, Discharged Condition Good, Rehab Referral Accepted Patient has Accepted a Rehab Referral to: [facility] - Medication Discharge Medications: Ambulatory Orders Insulin Glargine,Hum.rec.anlog [Lantus Solostar PEN -] 40 units SQ AM 07/07/15 Insulin Lispro [Humalog Kwikpen U-100] 12 unit SQ TID 07/07/15 Alprazolam [Xanax] 2 mg PO TID 02/24/18 Oxycodone HCl 30 mg PO QID PRN 02/24/18 Dextroamphetamine/Amphetamine [Adderall 10 mg Tablet] 30 mg PO TID 02/26/18 Insulin Aspart [Novolog Flexpen] 100 unit SQ ACHS #1 vial 02/27/18 - Diagnosis (1) Sedative, hypnotic or anxiolytic dependence with withdrawal, uncomplicated Status: Acute (2) Substance induced mood disorder Status: Suspected (3) Eczema Status: Chronic Qualifiers: Eczema type: unspecified Qualified Code(s): L30.9 - Dermatitis, unspecified (4) Insulin dependent diabetes mellitus Status: Chronic (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
--- NOTE | 2019-02-11 22:53 | EKG ---
Test Reason : Blood Pressure : / mmHG Vent. Rate : 108 BPM Atrial Rate : 108 BPM P-R Int : 132 ms QRS Dur : 090 ms QT Int : 316 ms P-R-T Axes : 073 063 069 degrees QTc Int : 423 ms SINUS TACHYCARDIA OTHERWISE NORMAL ECG WHEN COMPARED WITH ECG OF 24-FEB-2018 15:38, NO SIGNIFICANT CHANGE WAS FOUND Confirmed by SACHIN FLOWER MD ([id number]) on 02/11/2019 10:53:35 PM Referred By: Confirmed By:SACHIN FLOWER MD
== END 2019-02-11 08:15 | disposition home or self-care (01) | DRG 773 ==
LOC: YASAS 18:14 → Y3N 02-09 01:09
PROVIDERS: ADMIT Surgery; ATTEND Surgery
PROC: HZ2ZZZZ Detoxification Services for Substance Abuse Treatment (ICD-10-PCS; principal; 2019-02-09)
DX: F13.230 Sedative, hypnotic or anxiolytic dependence with withdrawal, uncomplicated (principal); F11.20 Opioid dependence, uncomplicated; F19.24 Other psychoactive substance dependence with psychoactive substance-induced mood disorder; E11.65 Type 2 diabetes mellitus with hyperglycemia; L30.9 Dermatitis, unspecified; J45.909 Unspecified asthma, uncomplicated; G62.9 Polyneuropathy, unspecified; R00.0 Tachycardia, unspecified; Z79.4 Long term (current) use of insulin
CPT/HCPCS: 36415; 80053; 81003; 82962; 85027; 86593; 93005; 93010; J0475; J0735

== ENCOUNTER 2020-01-13 14:15 | Inpatient (IN) | payer OTHER ==
[2020-01-13] MEDS ORDERED: ACETAMINOPHEN 325 MG TABLET (FP) PO ONE (14:51)
[2020-01-13] MEDS ORDERED: ACETAMINOPHEN 325 MG TABLET (FP) ONE (14:52)
--- NOTE | 2020-01-13 15:53 | PDOC ---
Documentation entered by Arturo Siegel SCRIBE, acting as scribe for Keenan Young MD. Keenan Young MD: This documentation has been prepared by the Robbin callejas Xhesika, SCRIBE, under my direction and personally reviewed by me in its entirety. I confirm that the documentation accurately reflects all work, treatment, procedures, and medical decision making performed by me. History of Present Illness - General Chief Complaint: Pain Stated Complaint: RIGHT FOOT PAIN History Source: Patient Exam Limitations: No Limitations - History of Present Illness Initial Comments: 01/13/20 14:49 The patient is a 39 year old male with a significant PMH of asthma, IDDM, peripheral neuropathy, and polysubstance abuse who presents to the emergency department for R foot pain at the base of 5th metatarsal x3 days, gradually getting worse. The patient states he had a fracture at the R foot 2 years ago, treated here at [facility]. Pt states he went to sleep fine on Monday (3 days ago), then woke up Monday with sudden onset atraumatic, intense, sharp pain at the same site of his previous R foot fracture. Pt states he bought new shoes on and did a lot of walking Monday night. Pt states he is unable to bare weight on his foot. Pt denies any recent trauma. Pt denies taking any medication for pain. 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 The patient denies chest pain, shortness of breath, headache and dizziness. Denies fever, chills, cough, nausea, vomiting, diarrhea and constipation. Allergies: NKDA Past History - Past Medical History Allergies/Adverse Reactions: Allergies Allergy/AdvReac Type Severity Reaction Status Date / Time No Known Allergies Allergy Verified 01/13/20 14:19 Home Medications: Ambulatory Orders Insulin Glargine,Hum.rec.anlog [Basaglaleah Gonzales U-100] 43 unit SQ HS 01/13/20 Insulin Lispro [Admelog Solostar] 12 units SQ ASDIR 01/13/20 Anemia: No Asthma: No Cancer: No Cardiac Disorders: No CVA: No COPD: No CHF: No Dementia: No Diabetes: Yes GI Disorders: No Disorders: No HTN: No Hypercholesterolemia: No Kidney Stones: No Liver Disease: No Seizures: No Thyroid Disease: No - Reproductive History Testicular Surgery: No - Immunization History Immunization Up to Date: Yes - Psycho Social/Smoking Cessation Hx Smoking History: Never smoked Have you smoked in the past 12 months: No Number of Cigarettes Smoked Daily: 0 Hx Alcohol Use: No Drug/Substance Use Hx: Yes (mdma, opioids, aderral, benzodiazepines) Substance Use Type: None, Cocaine (stopped 5 years ago ), Heroin (stopped 3 years ago), Tranquilizers (Takes more than prescribed Xanax and is requesting detox) Hx Substance Use Treatment: Yes Review of Systems - Review of Systems Able to Perform ROS?: Yes Comments:: 01/13/20 14:50 GENERAL/CONSTITUTIONAL: No fever or chills. No weakness. MUSCULOSKELETAL: No neck or back pain. +R foot pain at the base of 5th metatarsal. SKIN: No rash NEUROLOGIC: No headache, vertigo, loss of consciousness, or change in strength/ sensation. *Physical Exam - Vital Signs Last Vital Signs Temp Pulse Resp BP Pulse Ox 98.3 F 97 H 16 157/98 99 01/13/20 14:15 01/13/20 14:15 01/13/20 14:15 01/13/20 14:15 01/13/20 14:15 - Physical Exam 01/13/20 15:10 GENERAL: The patient is awake, alert, and fully oriented, Nontoxic - in no acute distress. CARD: rrr, no mrg PULM: CTA bl ABD: soft nontender EXTREMITIES: no tenderness to R knee/ankle/tibfib, +bony prominece R 5th metatarsal that is erythemadous, with mildly tender region on proximal/medial aspect, slightly warm to palpation, no signs of fluctuance. mild diffuse edema, SKIN: Warm, Dry, normal turgor, except as ntoed on extremity exam ED Treatment Course - LABORATORY CBC & Chemistry Diagram: 01/13/20 17:10 01/13/20 17:10 Medical Decision Making - Medical Decision Making 01/13/20 14:43 39y M hx of IDDM, neuropathy, presents with atraumatic R foot pain. Pt notse a history of a fonseca fracture on his 5th metatarsal from a work injury 2-3 years ago and notse pain is in the same site no recent injuries/falls. does ntoe he got new shoes on and he was walking around alot on monday and pain started on sat. also notse pain seems to be worse with these shoes and better when he is waering sandles. no fever/chills, redness/swelling. on exam pt in no distress R foot has a bony prominence at 5th metatarsal that is erythemadous and mildly diffusely tender to palpation, no n indurated. mild tenderness to the proximal/ superior aspect of the prominence without other skin defect o rsigns o finfection No skin breakdown appreciated will obtain xray to screen for fx as pt has neuropathy tylenol for pain suspect his pain may be due to the new shoes. no clinical signs of acute injury/ fracture will recommend supportive care with decrease ambulation and changing back to open toe shoes or his old shoes for comfort. 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 jones 01/13/20 18:07 Due to the punched-out lesions I obtain blood work to screen for possible osteomyelitis however I do believe that the appearance of that cystic lesion is likely secondary to his fonseca fracture The patientThe patient there is no signs of leukocytosis or left shift. The patient CRP and ESR still pending,. 01/13/20 19:06 The patient's ESR is elevated. The case was discussed with Dr. Jones discussed that punched-out lesion is not exactly consistent with nonunion of the Fonseca fracture and on the differential is osteomyelitis. There is no signs of skin breakage or ulceration, However on repeat examination the patient does have significant erythema, warmth and tenderness on the lateral aspect of his foot. will ad shayy the pt for iv abx as pt is high risk with diabetes/neuropathy 01/13/20 19:39 case dw [employer] massiel agreed with admission for further management will admit to m/s under dr. vasquez service Case discussed in detail with admitting physician including history, physical exam and ancillary studies. Admitting physician has assumed care for the patient, will follow all pending diagnostics and will complete the evaluation and treatment. Discharge - Discharge Information Problems reviewed: Yes Clinical Impression/Diagnosis: Foot pain, right Fracture of fifth metatarsal bone of right foot Qualifiers: Encounter type: subsequent encounter Fracture type: closed Fracture alignment: displaced Fracture healing: with nonunion Qualified Code(s): S92.351K - Displaced fracture of fifth metatarsal bone, right foot, subsequent encounter for fracture with nonunion Condition: Stable - Admission Yes - Follow up/Referral Referrals: Jamison Jones MD [Staff Physician] - - Patient Discharge Instructions Patient Printed Discharge Instructions: DI for Foot Fracture Additional Instructions: Return to the emergency department immediately with ANY new, persistent or worsening symptoms. You MUST call and follow up with your orthopedic doctor for further evaluation of your symptoms. Results were discussed with you. Please make sure your doctor reviews the results of your emergency evaluation. Your Emergency Department visit is not complete without a follow up with your doctor. If you had any xrays during your visit, it was read preliminarily by myself, a Radiologist will review it and if there are any additional findings we will call you. Print Language: THAI - Post Discharge Activity
[2020-01-13 17:28] LABS: BASO % 0.5 % (0-2.0); EOS % 1.4 % (0-4.5); HEMOGLOBIN 15.4 GM/dl (11.7-16.9); MCH 31.2 pg (25.7-33.7); MCHC 33.5 g/dl (32.0-35.9); MEAN CELL VOLUME 93.2 fl (80-96); MEAN PLT VOLUME 10.3 fl (7.5-11.1); MONO % 5.3 % (3.8-10.2); NEUT % 80.8 % (42.8-82.8); PLATELET COUNT 275 K/MM3 (134-434); RBC 4.94 M/mm3 (4.00-5.60); RDW 13.4 % (11.9-15.9); WHITE BLOOD COUNT 10.4 K/mm3 (4.0-10.8)
[2020-01-13 17:35] LABS: ALBUMIN 3.7 g/dl (3.4-5.0); BILIRUBIN,TOTAL 0.4 mg/dl (0.2-1); CALCIUM 9.6 mg/dl (8.5-10); CREATININE 0.9 mg/dl (0.55-1.3); POTASSIUM 4.4 mmol/L (3.5-5.1); TOT PROT 7.1 g/dl (6.4-8.2)
[2020-01-13] MEDS ORDERED: VANCOMYCIN 1 GRAM (PRE-DOCKED) 1,000 MG/250 ML BAG IVPB ONE (19:04)
[2020-01-13] MEDS ORDERED: VANCOMYCIN 1,000 MG VIAL (RESTRICTED TO ID ONLY) ONE (19:32)
[2020-01-13 22:17] VITALS: BMI 27.1
[2020-01-13] MEDS ORDERED: LORazepam 2 MG/ML SDV VIAL IVPUSH PRN (22:52)
--- NOTE | 2020-01-13 22:52 | HP ---
CHIEF COMPLAINT: Left foot pain PCP: none HISTORY OF PRESENT ILLNESS: 39 year-old male with a PMH significant for Type II IDDM and polysubstance abuse. Presents to the ED for evaluation of a painful right foot. Patient reports this foot was injured two years ago when he had a work-related accident. Xray from 09/06/17 showed a nondisplaced Ayala fracture at the base of the fifth metatarsal. Patient states he was seen by Dr. Jones at the time and opted not to have surgery. Patient reports three days ago he developed pain in the foot. By Monday he was experiencing difficulty walking on the foot due to pain, and today he was unable to weight bear at all. Patient is a poor historian, speech is slurred in ED and he appears to be intoxicated. ER course was notable for: (1) (2) (3) Recent Travel: No PAST MEDICAL HISTORY: Type II IDDM (age 23) Polysubstance abuse (heroin, benzos, opioids, GHB, adderall) PAST SURGICAL HISTORY: Left mandible and right cheekbone fractures s/p repair 2006 Social History: on Worker's Comp; threw him out several weeks ago, living in a motel with a friend whose leaving for state retirement in 2 weeks Smoking: denies Alcohol: denies Drugs: denies Allergies No Known Allergies Allergy (Verified 01/13/20 14:19) HOME MEDICATIONS: Home Medications Medication Instructions Recorded Insulin Glargine,Hum.rec.anlog 43 unit SQ HS 01/13/20 [Basaglar Kwikpen U-100] Insulin Lispro [Admelog Solostar] 12 units SQ ASDIR 01/13/20 REVIEW OF SYSTEMS CONSTITUTIONAL: Absent: fever, chills, diaphoresis, generalized weakness, malaise, loss of appetite, weight change HEENT: Absent: rhinorrhea, nasal congestion, throat pain, throat swelling, difficulty swallowing, mouth swelling, ear pain, eye pain, visual changes CARDIOVASCULAR: Absent: chest pain, syncope, palpitations, irregular heart rate, lightheadedness , peripheral edema RESPIRATORY: Absent: cough, shortness of breath, dyspnea with exertion, orthopnea, wheezing, stridor, hemoptysis GASTROINTESTINAL: Absent: abdominal pain, abdominal distension, nausea, vomiting, diarrhea, constipation, melena, hematochezia GENITOURINARY: Absent: dysuria, frequency, urgency, hesitancy, hematuria, flank pain, genital pain MUSCULOSKELETAL: +right foot pain Absent: myalgia, arthralgia, joint swelling, back pain, neck pain SKIN: Absent: rash, itching, pallor HEMATOLOGIC/IMMUNOLOGIC: Absent: easy bleeding, easy bruising, lymphadenopathy, frequent infections ENDOCRINE: Absent: unexplained weight gain, unexplained weight loss, heat intolerance, cold intolerance NEUROLOGIC: Absent: headache, focal weakness or paresthesias, dizziness, unsteady gait, seizure, mental status changes, bladder or bowel incontinence PSYCHIATRIC: Absent: anxiety, depression, suicidal or homicidal ideation, hallucinations. PHYSICAL EXAMINATION Vital Signs - 24 hr 01/13/20 01/13/20 14:15 20:53 Temperature 98.3 F 98.4 F Pulse Rate 97 H Pulse Rate [ 84 Left Radial] Respiratory 16 Rate Blood Pressure 157/98 Blood Pressure 139/86 [Right Arm] O2 Sat by Pulse 99 100 Oximetry (%) GENERAL: A&Ox3; facial flushing; slurred speech; appears under the influence, denies alcohol or drug use says he is "just tired" HEAD: Normal with no signs of trauma. EYES: Pupils equal, round and reactive to light, extraocular movements intact, sclera anicteric, conjunctiva injected appearance LUNGS: Breath sounds equal, clear to auscultation bilaterally. No wheezes, and no crackles. No accessory muscle use. HEART: Regular rate and rhythm, normal S1 and S2 ABDOMEN: Soft, nontender, not distended UPPER EXTREMITIES: 2+ pulses, warm, well-perfused. No cyanosis. No clubbing. No peripheral edema. RIGHT FOOT: large dessicated wound hallux LEFT FOOT: swelling, erythema, warmth, obvious deformity lateral aspect NEUROLOGICAL: Cranial nerves II-XII intact. Speech is slurred, answers questions appropriately. SKIN: Dry, scaly plaques behind left ear, right shoulder, abdomen, both legs Laboratory Results - last 24 hr 01/13/20 01/13/20 01/13/20 17:10 17:10 17:10 WBC 10.4 RBC 4.94 Hgb 15.4 Hct 46.0 MCV 93.2 MCH 31.2 MCHC 33.5 RDW 13.4 Plt Count 275 MPV 10.3 Absolute Neuts (auto) 8.4 Neutrophils % 80.8 Lymphocytes % 12.0 Monocytes % 5.3 Eosinophils % 1.4 Basophils % 0.5 ESR 25 H Sodium 138 Potassium 4.4 Chloride 100 Carbon Dioxide 28 Anion Gap 10 BUN 17.0 Creatinine 0.9 Est GFR (CKD-EPI)AfAm 122.52 Est GFR (CKD-EPI)NonAf 105.71 POC Glucometer Random Glucose 189 H Calcium 9.6 Total Bilirubin 0.4 AST 18 ALT 23 Alkaline Phosphatase 74 C-Reactive Protein 2.2 H Total Protein 7.1 Albumin 3.7 01/13/20 21:05 WBC RBC Hgb Hct MCV MCH MCHC RDW Plt Count MPV Absolute Neuts (auto) Neutrophils % Lymphocytes % Monocytes % Eosinophils % Basophils % ESR Sodium Potassium Chloride Carbon Dioxide Anion Gap BUN Creatinine Est GFR (CKD-EPI)AfAm Est GFR (CKD-EPI)NonAf POC Glucometer 205 Random Glucose Calcium Total Bilirubin AST ALT Alkaline Phosphatase C-Reactive Protein Total Protein Albumin ASSESSMENT/PLAN: 39 year-old male with a PMH significant for Type II IDDM and polysubstance abuse. Presents to the ED for evaluation of a painful right foot. Appears under the influence. Polysubstance abuse r/o withdrawal from unknown substances --patient denies recent drug use --utox pending --monitor closely s/s of withdrawal --IV fluids --ativan IVP for agitation --ECG ordered --telemetry monitoring --behavioral health consult placed Cellulitis right foot --h/o 5th metatarsal Ayala fracture in 2017, now painful, red, swollen foot --start empiric vanc and ceftriaxone --ortho consult --MRI to r/o osteo Left hallux wound --large dessicated wound --podiatry consult Type II IDDM --Levemir 43U qhs --Novolog sliding scale coverage --HgbA1C ordered Skin plaques --looks like psoriasis FEN Fluids: NS@75mL/hr Electrolytes: replete as indicated Nutrition: diabetic diet DVT prophylaxis: subq heparin Dispo: continues to require inpatient care. Full code. ISTOP The Drug Utilization Report below displays all of the controlled substance prescriptions, if any, that your patient has filled in the last twelve months. The information displayed on this report is compiled from pharmacy submissions to the Department, and accurately reflects the information as submitted by the pharmacies. This report was requested by: Kacie Toure | Reference #: [id number] Others' Prescriptions Patient Name: Lei Schilling Date: 1980 Address: [address] [place] [address] Sex: Male Rx Written Rx Dispensed Drug Quantity Days Supply Prescriber Name 07/23/2019 12/25/2019 vireo red (19:1) 2.2 mg thc&0.12 mg cbd/dose d-vape ( 500mg) 1 7 07/23/2019 11/26/2019 vireo red (19:1) 2.2 mg thc&0.12 mg cbd/dose d-vape ( 250mg) 2 7 07/23/2019 11/18/2019 vireo red (19:1) 2.2 mg thc&0.12 mg cbd/dose d-vape ( 250mg) 2 7 07/23/2019 11/12/2019 vireo red (19:1) 2.2 mg thc&0.12 mg cbd/dose d-vape ( 250mg) 2 7 07/23/2019 11/08/2019 vireo red starter (19:1) 2.375mg thc/0.125mg cbd/2- sec puff 2 7 07/23/2019 11/05/2019 vireo yellow (6:1) 2mg thc & 0.34mg cbd/dose d-vape ( 250mg) 1 7 07/23/2019 09/02/2019 vireo red (19:1) 2.375mg thc and 0.125mg cbd/2-sec puff vape 1 7 07/23/2019 08/28/2019 vireo red (19:1) 2.375mg thc and 0.125mg cbd/2-sec puff vape 1 7 07/23/2019 08/28/2019 forte high thc 9.7mg thc and <0.1mg cbd/capsule 1 7 07/23/2019 08/20/2019 vireo red (19:1) 2.375mg thc and 0.125mg cbd/2-sec puff vape 1 7 Motta, Navarro 07/23/2019 08/08/2019 vireo yellow (6:1) 2.14 mg thc/0.36 mg cbd/2-sec puff vapor 1 7 Motta, Navarro 07/20/2019 07/30/2019 vireo green (1:1) 1.2mg thc and 1.2mg cbd/2 sec puff vapor 1 7 Motta, Navarro Patient Name: Lei Schilling Date: 1980 Address: [address] [place] [address] Sex: Male Rx Written Rx Dispensed Drug Quantity Days Supply Prescriber Name 10/02/2019 10/02/2019 lorazepam 2 mg tablet 9 3 Julianna Barrett J, [employer] 09/09/2019 09/12/2019 dextroamp-amphetamin 30 mg tab 60 30 Paul Diaz MD 09/09/2019 09/12/2019 lorazepam 2 mg tablet 45 22 Paul Diaz MD Patient Name: Lei Schilling Date: 1980 Address: [address] [place] [address] Sex: Male Rx Written Rx Dispensed Drug Quantity Days Supply Prescriber Name 09/24/2019 09/25/2019 oxycodone hcl 15 mg tablet 60 30 Paul Diaz MD Patient Name: Lei Schilling Date: 1980 Address: [address] [place] [address] Sex: Male Rx Written Rx Dispensed Drug Quantity Days Supply Prescriber Name 08/23/2019 08/27/2019 pregabalin 150 mg capsule 60 30 Tommy Hansen S 07/26/2019 07/31/2019 pregabalin 75 mg capsule 8 4 Tommy Hansen S 07/26/2019 07/31/2019 pregabalin 150 mg capsule 52 26 Tommy Hansen S Patient Name: Lei Schilling Date: 1980 Address: [address] [place] [address] Sex: Male Rx Written Rx Dispensed Drug Quantity Days Supply Prescriber Name 04/25/2019 04/25/2019 dextroamp-amphetamin 20 mg tab 28 14 Major Briggs MD 03/05/2019 03/09/2019 morphine sulf er 30 mg tablet 30 15 Javon Haynes 01/21/2019 01/21/2019 alprazolam 2 mg tablet 120 30 Rudy Schrader MD Visit type - Emergency Visit Emergency Visit: Yes ED Registration Date: 01/13/20 Care time: The patient presented to the Emergency Department on the above date and was hospitalized for further evaluation of their emergent condition. - New Patient This patient is new to me today: Yes Date on this admission: 01/13/20 - Critical Care Critical Care patient: No
[2020-01-13] MEDS ORDERED: SODIUM CHLORIDE 1,000 ML IV SCH (23:15)
[2020-01-14] MEDS: ACETAMINOPHEN 325 MG TABLET (FP) PO PRN ×2 (05:51→22:00)
[2020-01-14] MEDS: INSULIN SLIDING SCALE (NOVOLOG) 1 VIAL SQ SCH ×4 (06:24→21:19)
[2020-01-14 07:49] LABS: BASO % 0.3 % (0-2.0); EOS % 1.3 % (0-4.5); HEMATOCRIT 41.8 % (35.4-49); HEMOGLOBIN 14.1 GM/dl (11.7-16.9); MCH 31.5 pg (25.7-33.7); MCHC 33.6 g/dl (32.0-35.9); MEAN CELL VOLUME 93.8 fl (80-96); MEAN PLT VOLUME 10.4 fl (7.5-11.1); MONO % 10.6 % (3.8-10.2); NEUT % 75.8 % (42.8-82.8); PLATELET COUNT 210 K/MM3 (134-434); RBC 4.45 M/mm3 (4.00-5.60); RDW 13.4 % (11.9-15.9); WHITE BLOOD COUNT 9.3 K/mm3 (4.0-10.8)
[2020-01-14 07:59] LABS: ALBUMIN 3.1 g/dl (3.4-5.0); BILIRUBIN,TOTAL 0.8 mg/dl (0.2-1); CALCIUM 8.7 mg/dl (8.5-10); CREATININE 0.9 mg/dl (0.55-1.3); MAGNESIUM 1.7 mg/dL (1.8-2.4); POTASSIUM 3.8 mmol/L (3.5-5.1)
[2020-01-14] MEDS ORDERED: VANCOMYCIN HCL 1,500 MG in DEXTROSE 5%-WATER - 500 ML IVPB SCH ×2 (08:00→20:00)
[2020-01-14] MEDS ORDERED: VANCOMYCIN HCL 1,500 MG in SODIUM CHLORIDE 500 ML IVPB SCH (08:02)
--- NOTE | 2020-01-14 09:22 | EKG ---
Test Reason : Blood Pressure : / mmHG Vent. Rate : 102 BPM Atrial Rate : 102 BPM P-R Int : 130 ms QRS Dur : 094 ms QT Int : 340 ms P-R-T Axes : 078 043 065 degrees QTc Int : 443 ms SINUS TACHYCARDIA OTHERWISE NORMAL ECG WHEN COMPARED WITH ECG OF 09-FEB-2019 01:22, NO SIGNIFICANT CHANGE WAS FOUND Confirmed by Fly Peter MD ([id number]) on 01/14/2020 9:21:45 AM Referred By: BARTOLOME Confirmed By:Fly Peter MD
--- NOTE | 2020-01-14 09:45 | PN ---
Physical Exam: SUBJECTIVE: Patient seen and examined OBJECTIVE: Vital Signs Period Temp Pulse Resp BP Sys/Medrano Pulse Ox Last 24 Hr 98.0 F-98.7 F 84-104 16-18 139-157/75-98 99-100 GENERAL: A&Ox3; speech is clear, sober LUNGS: Breath sounds equal, clear to auscultation bilaterally. No wheezes, and no crackles. No accessory muscle use. HEART: Regular rate and rhythm, normal S1 and S2 ABDOMEN: Soft, nontender, not distended UPPER EXTREMITIES: 2+ pulses, warm, well-perfused. No cyanosis. No clubbing. No peripheral edema. RIGHT FOOT: large dessicated wound hallux LEFT FOOT: still swollen but erythema has almost completely resolved; obvious deformity lateral aspect NEUROLOGICAL: Cranial nerves II-XII intact. No tremors, no asterixis, no agitation SKIN: Dry, scaly plaques behind left ear, right shoulder, abdomen, both legs Laboratory Results - last 24 hr 01/13/20 01/13/20 01/13/20 17:10 17:10 17:10 WBC 10.4 RBC 4.94 Hgb 15.4 Hct 46.0 MCV 93.2 MCH 31.2 MCHC 33.5 RDW 13.4 Plt Count 275 MPV 10.3 Absolute Neuts (auto) 8.4 Neutrophils % 80.8 Lymphocytes % 12.0 Monocytes % 5.3 Eosinophils % 1.4 Basophils % 0.5 ESR 25 H Sodium 138 Potassium 4.4 Chloride 100 Carbon Dioxide 28 Anion Gap 10 BUN 17.0 Creatinine 0.9 Est GFR (CKD-EPI)AfAm 122.52 Est GFR (CKD-EPI)NonAf 105.71 POC Glucometer Random Glucose 189 H Hemoglobin A1c % Calcium 9.6 Magnesium Total Bilirubin 0.4 AST 18 ALT 23 Alkaline Phosphatase 74 C-Reactive Protein 2.2 H Total Protein 7.1 Albumin 3.7 Urine Color Urine Appearance Urine pH Urine Protein Urine Glucose (UA) Urine Ketones Urine Blood Urine Nitrite Urine Bilirubin Urine Urobilinogen Ur Leukocyte Esterase 01/13/20 01/14/20 01/14/20 21:05 05:00 05:32 WBC RBC Hgb Hct MCV MCH MCHC RDW Plt Count MPV Absolute Neuts (auto) Neutrophils % Lymphocytes % Monocytes % Eosinophils % Basophils % ESR Sodium Potassium Chloride Carbon Dioxide Anion Gap BUN Creatinine Est GFR (CKD-EPI)AfAm Est GFR (CKD-EPI)NonAf POC Glucometer 205 159 Random Glucose Hemoglobin A1c % Calcium Magnesium Total Bilirubin AST ALT Alkaline Phosphatase C-Reactive Protein Total Protein Albumin Urine Color Yellow Urine Appearance Clear Urine pH 6.5 Urine Protein Negative Urine Glucose (UA) Trace Urine Ketones 1+ H Urine Blood Negative Urine Nitrite Negative Urine Bilirubin 1+ H Urine Urobilinogen 2.0 Ur Leukocyte Esterase Negative 01/14/20 01/14/20 01/14/20 06:47 06:47 06:47 WBC 9.3 RBC 4.45 Hgb 14.1 Hct 41.8 MCV 93.8 MCH 31.5 MCHC 33.6 RDW 13.4 Plt Count 210 D MPV 10.4 Absolute Neuts (auto) 7.1 Neutrophils % 75.8 Lymphocytes % 12.0 Monocytes % 10.6 H D Eosinophils % 1.3 Basophils % 0.3 ESR Sodium 136 Potassium 3.8 Chloride 101 Carbon Dioxide 30 Anion Gap 5 L BUN 16.0 Creatinine 0.9 Est GFR (CKD-EPI)AfAm 122.52 Est GFR (CKD-EPI)NonAf 105.71 POC Glucometer Random Glucose 175 H Hemoglobin A1c % 9.0 H Calcium 8.7 Magnesium 1.7 L Total Bilirubin 0.8 AST 13 L ALT 20 Alkaline Phosphatase 62 D C-Reactive Protein Total Protein 6.0 L Albumin 3.1 L Urine Color Urine Appearance Urine pH Urine Protein Urine Glucose (UA) Urine Ketones Urine Blood Urine Nitrite Urine Bilirubin Urine Urobilinogen Ur Leukocyte Esterase Active Medications Generic Name Dose Route Start Last Admin Trade Name Freq PRN Reason Stop Dose Admin Acetaminophen 650 mg 01/13/20 23:02 01/14/20 05:51 Tylenol - PO 650 mg Q6H PRN Administration PAIN LEVEL 1-5 Enoxaparin Sodium 40 mg 01/14/20 10:00 Lovenox - SQ DAILY SHANNAN Sodium Chloride 1,000 mls @ 75 mls/hr 01/13/20 23:15 01/13/20 23:42 Normal Saline - IV 75 mls/hr ASDIR SHANNAN Administration Vancomycin HCl 1,500 mg/ 500 mls @ 250 mls/hr 01/14/20 20:00 Dextrose IVPB Q12H SHANNAN Protocol Ceftriaxone Sodium 50 mls @ 100 mls/hr 01/14/20 10:00 Ceftriaxone 1 Gm-D5w Bag IVPB DAILY SHANNAN Protocol Vancomycin HCl 1,500 mg/ 500 mls @ 250 mls/hr 01/14/20 08:02 Sodium Chloride IVPB 01/14/20 09:59 Q12H SHANNAN Protocol Insulin Aspart 1 vial 01/14/20 07:00 01/14/20 06:24 Novolog Vial Sliding Scale - SQ 2 units ACHS SHANNAN Administration Protocol Insulin Detemir 43 units 01/14/20 22:00 Levemir Vial SQ HS SHANNAN Lorazepam 1 mg 01/13/20 22:52 Ativan Injection - IVPUSH Q6H PRN ANXIETY Magnesium Oxide 800 mg 01/14/20 10:00 Mag-Ox - PO 01/14/20 10:01 ONCE ONE ASSESSMENT/PLAN 39 year-old male with a PMH significant for Type II IDDM and polysubstance abuse. Admitted for cellulitis right foot. Polysubstance abuse r/o withdrawal from unknown substances --patient denies recent drug use --utox: +amphetamines, +THC --continue to monitor for s/s of withdrawal --ativan IVP PRN for agitation Cellulitis right foot --afebrile, no leukocytosis --01/14 MRI: old fracture of the base of the fifth metatarsal, possible incomplete healing, underlying chronic osteo cannot be excluded --continue empiric vanc (day #2) and ceftriaxone (day #2) --IR bone biopsy requested --ortho Dr. Jones following Left hallux wound --large dessicated wound --podiatry consult still pending Type II IDDM --Levemir 43U qhs --Novolog sliding scale coverage --HgbA1C 9.0 Skin plaques-psoriasis --betamethasone daily FEN Fluids: PO intake adequate Electrolytes: replete as indicated Nutrition: diabetic diet DVT prophylaxis: subq heparin Dispo: continues to require inpatient care. Full code. Visit type - Emergency Visit Emergency Visit: Yes ED Registration Date: 01/13/20 Care time: The patient presented to the Emergency Department on the above date and was hospitalized for further evaluation of their emergent condition. - New Patient This patient is new to me today: No - Critical Care Critical Care patient: No
[2020-01-14 09:54] LABS: COCAINE, UR NEGATIVE ng/ml (CUTOFF=300); METHADONE, UR NEGATIVE ng/ml (CUTOFF=300); OPIATES, URI NEGATIVE ng/ml (CUTOFF=300); PHENCYCLIDINE,URINE NEGATIVE ng/ml (CUTOFF=25); URINE BARBITURATES NEGATIVE ng/ml (CUTOFF=200); URINE BENZODIAZEPINES NEGATIVE ng/ml (CUTOFF=200)
[2020-01-14] MEDS ORDERED: CEFTRIAXONE 1 G/50 ML PREMIX 50 ML IVPB SCH (10:00)
[2020-01-14] MEDS ORDERED: MAGNESIUM OXIDE 400 MG TABLET (FP) PO ONE (10:00)
[2020-01-14] MEDS ORDERED: CEFTRIAXONE 1 GM in DEXTROSE 5%-WATER - 50 ML IVPB SCH (10:00)
[2020-01-14] MEDS ORDERED: ENOXAPARIN NA (PORCINE) 40 MG/0.4 ML DISP.SYRIN SQ SCH (10:00)
[2020-01-14 10:04] LABS: URINE AMPHETAMINES POSITIVE ng/ml (CUTOFF=500)
--- NOTE | 2020-01-14 15:43 | CONSULT ---
Consult - History of Present Illness History of Present Illness: 39-year-old male admitted to the hospital after he began having pain in his right foot a few days ago. He states he was walking a lot but denies any spec [facility] injury or trauma. He does have a history of a fracture at the base of the fifth metatarsal on this foot approximately 2 years ago which was treated nonsurgically. He was found to have cystic changes on the x-rays taken in the emergency room and was sent for an MRI. He complains of pain in the foot which is worse with weightbearing and better with rest. He was started on IV antibiotics as there was concern for osteomyelitis. He states his foot is feeling a little better today. - History Source History Provided By: Patient - Alcohol/Substance Use Hx Alcohol Use: No - Smoking History Smoking history: Never smoked Have you smoked in the past 12 months: No Aproximately how many cigarettes per day: 0 Home Medications - Allergies Allergies/Adverse Reactions: Allergies Allergy/AdvReac Type Severity Reaction Status Date / Time No Known Allergies Allergy Verified 01/16/20 12:00 - Home Medications Home Medications: Ambulatory Orders Insulin Glargine,Hum.rec.anlog [Basaglar Kwikpen U-100] 43 unit SQ HS 01/13/20 Insulin Lispro [Admelog Solostar] 12 units SQ ASDIR 01/13/20 Betamethasone Valerate [Valisone 0.1% Cream -] 1 applic TP DAILY #1 tube 01/15/20 Clindamycin [Cleocin -] 300 mg PO Q6HPO #28 capsule 01/15/20 Review of Systems - Review of Systems Constitutional: reports: No Symptoms Eyes: reports: No Symptoms HENT: reports: No Symptoms Neck: reports: No Symptoms Cardiovascular: reports: No Symptoms Respiratory: reports: No Symptoms Gastrointestinal: reports: No Symptoms Genitourinary: reports: No Symptoms Breasts: reports: No Symptoms Reported Musculoskeletal: reports: Extremity Pain Integumentary: reports: No Symptoms Neurological: reports: No Symptoms Endocrine: reports: No Symptoms Hematology/Lymphatic: reports: No Symptoms Psychiatric: reports: No Symptoms Physical Exam Vital Signs: Vital Signs Temperature 98.8 F 01/14/20 13:54 Pulse Rate 81 01/14/20 13:54 Respiratory Rate 18 01/14/20 13:54 Blood Pressure 125/55 L 01/14/20 13:54 O2 Sat by Pulse Oximetry (%) 100 01/14/20 13:54 Constitutional: Yes: Well Nourished, No Distress, Calm Musculoskeletal: Yes: Other (right foot: There is moderate edema of the lateral aspect of the foot near the base of the fifth metatarsal. There is very mild redness here. There is diffuse moderate tenderness along the base of the fifth metatarsal. No other areas of tenderness. Full range of motion of the ankle. Compartments are soft. No streaking erythema. Neurovascularly intact) Labs: CBC, BMP 01/14/20 06:47 01/14/20 06:47 ESR 25 CRP 2.2 Imaging - Results X-ray: Report Reviewed, Image Reviewed (fifth metacarpal base fracture with cystic changes) MRI: Report Reviewed, Image Reviewed (MRI reviewed.fracture of the fifth metatarsal base. Possible osteomyelitis. Possible overlying cellulitis) Assessment/Plan #1 right foot pain and likely cellulitis and fifth metatarsal base fracture possible osteomyelitis I discussed today's findings and treatment options with the patient. I recommended a biopsy of the fifth metatarsal with interventional radiology to rule out osteomyelitis. Continue IV antibiotics for now. Nonweightbearing right lower extremity. I left the room to discuss the care plan with medicine and when I returned the patient was standing on the foot despite being instructed not to. I counseled the patient on weightbearing restrictions. according to medicine the foot was more swollen and red yesterday and he has been improving.
[2020-01-14] MEDS ORDERED: INSULIN (LEVEMIR) 100 UNITS/ML UNITS SQ SCH (22:00)
[2020-01-15 06:43] VITALS: BP 144/73; PULSE 104; TEMP 98.1
[2020-01-15 07:42] LABS: BASO % 0.5 % (0-2.0); HEMATOCRIT 43.7 % (35.4-49); HEMOGLOBIN 14.7 GM/dl (11.7-16.9); LYMPH % 10.9 % (8-40); MCH 31.3 pg (25.7-33.7); MCHC 33.5 g/dl (32.0-35.9); MEAN CELL VOLUME 93.1 fl (80-96); MEAN PLT VOLUME 10.1 fl (7.5-11.1); MONO % 9.8 % (3.8-10.2); NEUT % 77.8 % (42.8-82.8); PLATELET COUNT 212 K/MM3 (134-434); RDW 12.5 % (11.9-15.9); WHITE BLOOD COUNT 10.5 K/mm3 (4.0-10.8)
[2020-01-15 07:48] LABS: CREATININE 0.7 mg/dl (0.55-1.3); MAGNESIUM 1.9 mg/dL (1.8-2.4); POTASSIUM 4.1 mmol/L (3.5-5.1)
--- NOTE | 2020-01-15 08:31 | PN ---
Physical Exam: SUBJECTIVE: Patient seen and examined at bedside. OBJECTIVE: Vital Signs Period Temp Pulse Resp BP Sys/Medrano Pulse Ox Last 24 Hr 98.1 F-99.1 F 81-104 17-19 125-153/55-82 98-100 GENERAL: A&Ox3; speech is clear, sober LUNGS: Breath sounds equal, clear to auscultation bilaterally. No wheezes, and no crackles. No accessory muscle use. HEART: Regular rate and rhythm, normal S1 and S2 ABDOMEN: Soft, nontender, not distended UPPER EXTREMITIES: 2+ pulses, warm, well-perfused. No cyanosis. No clubbing. No peripheral edema. RIGHT FOOT: large dessicated wound hallux LEFT FOOT: still swollen but erythema has almost completely resolved; obvious deformity lateral aspect NEUROLOGICAL: Cranial nerves II-XII intact. No tremors, no asterixis, no agitation SKIN: Dry, scaly plaques behind left ear, right shoulder, abdomen, both legs Laboratory Results - last 24 hr 01/14/20 01/14/20 01/14/20 05:00 06:47 10:28 WBC RBC Hgb Hct MCV MCH MCHC RDW Plt Count MPV Absolute Neuts (auto) Neutrophils % Lymphocytes % Monocytes % Eosinophils % Basophils % Sodium Potassium Chloride Carbon Dioxide Anion Gap BUN Creatinine Est GFR (CKD-EPI)AfAm Est GFR (CKD-EPI)NonAf POC Glucometer 123 Random Glucose Hemoglobin A1c % 9.0 H Calcium Magnesium Opiates Screen Negative Methadone Screen Negative Barbiturate Screen Negative Phencyclidine Screen Negative Ur Amphetamines Screen Positive A* MDMA (Ecstasy) Screen Negative Benzodiazepines Screen Negative Cocaine Screen Negative U Marijuana (THC) Screen Positive A* 01/14/20 01/14/20 01/15/20 15:54 20:28 06:04 WBC RBC Hgb Hct MCV MCH MCHC RDW Plt Count MPV Absolute Neuts (auto) Neutrophils % Lymphocytes % Monocytes % Eosinophils % Basophils % Sodium Potassium Chloride Carbon Dioxide Anion Gap BUN Creatinine Est GFR (CKD-EPI)AfAm Est GFR (CKD-EPI)NonAf POC Glucometer 327 324 167 Random Glucose Hemoglobin A1c % Calcium Magnesium Opiates Screen Methadone Screen Barbiturate Screen Phencyclidine Screen Ur Amphetamines Screen MDMA (Ecstasy) Screen Benzodiazepines Screen Cocaine Screen U Marijuana (THC) Screen 02/19/20 02/19/20 07:15 07:15 WBC 10.5 RBC 4.70 Hgb 14.7 Hct 43.7 MCV 93.1 MCH 31.3 MCHC 33.5 RDW 12.5 Plt Count 212 MPV 10.1 Absolute Neuts (auto) 8.2 Neutrophils % 77.8 Lymphocytes % 10.9 Monocytes % 9.8 Eosinophils % 1.0 Basophils % 0.5 Sodium 136 Potassium 4.1 Chloride 99 Carbon Dioxide 29 Anion Gap 8 BUN 15.0 Creatinine 0.7 Est GFR (CKD-EPI)AfAm 135.86 Est GFR (CKD-EPI)NonAf 117.22 POC Glucometer Random Glucose 156 H Hemoglobin A1c % Calcium 9.0 Magnesium 1.9 Opiates Screen Methadone Screen Barbiturate Screen Phencyclidine Screen Ur Amphetamines Screen MDMA (Ecstasy) Screen Benzodiazepines Screen Cocaine Screen U Marijuana (THC) Screen Active Medications Generic Name Dose Route Start Last Admin Trade Name Freq PRN Reason Stop Dose Admin Acetaminophen 650 mg 01/13/20 23:02 01/14/20 22:00 Tylenol - PO 650 mg Q6H PRN Administration PAIN LEVEL 1-5 Betamethasone Valerate 1 applic 01/15/20 10:00 Valisone 0.1% Cream - TP DAILY SHANNAN Enoxaparin Sodium 40 mg 01/14/20 10:00 01/14/20 10:54 Lovenox - SQ 40 mg DAILY SHANNAN Administration Vancomycin HCl 1,500 mg/ 500 mls @ 250 mls/hr 01/14/20 20:00 Dextrose IVPB Q12H SHANNAN Protocol Ceftriaxone Sodium 50 mls @ 100 mls/hr 01/14/20 10:00 01/14/20 10:00 Ceftriaxone 1 Gm-D5w Bag IVPB 100 mls/hr DAILY SHANNAN Administration Protocol Insulin Aspart 1 vial 01/14/20 07:00 01/14/20 21:19 Novolog Vial Sliding Scale - SQ 8 units ACHS SHANNAN Administration Protocol Insulin Detemir 43 units 01/14/20 22:00 01/14/20 21:18 Levemir Vial SQ 43 units HS SHANNAN Administration Lorazepam 1 mg 01/13/20 22:52 Ativan Injection - IVPUSH Q6H PRN ANXIETY ASSESSMENT/PLAN: 39 year-old male with a PMH significant for Type II IDDM and polysubstance abuse. Admitted for cellulitis right foot. Polysubstance abuse r/o withdrawal from unknown substances --patient denies recent drug use --utox: +amphetamines, +THC --continue to monitor for s/s of withdrawal --ativan IVP PRN for agitation Cellulitis right foot --afebrile, no leukocytosis --01/14 MRI: old fracture of the base of the fifth metatarsal, possible incomplete healing, underlying chronic osteo cannot be excluded --continue empiric vanc (day #2) and ceftriaxone (day #2) --IR bone biopsy requested --ortho Dr. Jones following Left hallux wound --large dessicated wound --podiatry consult still pending Type II IDDM --Levemir 43U qhs --Novolog sliding scale coverage --HgbA1C 9.0 Skin plaques-psoriasis --betamethasone daily FEN Fluids: PO intake adequate Electrolytes: replete as indicated Nutrition: diabetic diet DVT prophylaxis: subq heparin Dispo: continues to require inpatient care. Full code.
[2020-01-15] MEDS ORDERED: BETAMETHASONE VALERATE 0.1% CREAM 15 GM TUBE TP SCH (10:00)
--- NOTE | 2020-01-15 10:38 | DS ---
Physical Exam: SUBJECTIVE: Patient seen and examined at bedside. OBJECTIVE: Vital Signs Period Temp Pulse Resp BP Sys/Medrano Pulse Ox Last 24 Hr 98.1 F-99.1 F 81-104 17-19 125-153/55-82 98-100 PHYSICAL EXAM GENERAL: A&Ox3; speech is clear, sober LUNGS: Breath sounds equal, clear to auscultation bilaterally. No wheezes, and no crackles. No accessory muscle use. HEART: Regular rate and rhythm, normal S1 and S2 ABDOMEN: Soft, nontender, not distended UPPER EXTREMITIES: 2+ pulses, warm, well-perfused. No cyanosis. No clubbing. No peripheral edema. RIGHT FOOT: large dessicated wound hallux LEFT FOOT: mild swelling, erythema almost completely resolved; obvious deformity lateral aspect, +tender NEUROLOGICAL: Cranial nerves II-XII intact. No tremors, no asterixis, no agitation SKIN: Dry, scaly plaques behind left ear, right shoulder, abdomen, both legs LABS Laboratory Results - last 24 hr 01/14/20 01/14/20 01/15/20 15:54 20:28 06:04 WBC RBC Hgb Hct MCV MCH MCHC RDW Plt Count MPV Absolute Neuts (auto) Neutrophils % Lymphocytes % Monocytes % Eosinophils % Basophils % Sodium Potassium Chloride Carbon Dioxide Anion Gap BUN Creatinine Est GFR (CKD-EPI)AfAm Est GFR (CKD-EPI)NonAf POC Glucometer 327 324 167 Random Glucose Calcium Magnesium 01/15/20 01/15/20 07:15 07:15 WBC 10.5 RBC 4.70 Hgb 14.7 Hct 43.7 MCV 93.1 MCH 31.3 MCHC 33.5 RDW 12.5 Plt Count 212 MPV 10.1 Absolute Neuts (auto) 8.2 Neutrophils % 77.8 Lymphocytes % 10.9 Monocytes % 9.8 Eosinophils % 1.0 Basophils % 0.5 Sodium 136 Potassium 4.1 Chloride 99 Carbon Dioxide 29 Anion Gap 8 BUN 15.0 Creatinine 0.7 Est GFR (CKD-EPI)AfAm 135.86 Est GFR (CKD-EPI)NonAf 117.22 POC Glucometer Random Glucose 156 H Calcium 9.0 Magnesium 1.9 HOSPITAL COURSE: Date of Admission:01/13/20 Date of Discharge: 01/15/20 Pre-hospital course 39 year-old male with a PMH significant for Type II IDDM and polysubstance abuse. Presents to the ED for evaluation of a painful right foot. Patient reports this foot was injured two years ago when he had a work-related accident. Xray from 09/06/17 showed a nondisplaced Ayala fracture at the base of the fifth metatarsal. Patient states he was seen by Dr. Jones at the time and opted not to have surgery. Patient reports three days ago he developed pain in the foot. By Monday he was experiencing difficulty walking on the foot due to pain, and today he was unable to weight bear at all. Patient is a poor historian, speech is slurred in ED and he appears to be intoxicated. Hospital course Polysubstance abuse r/o withdrawal from unknown substances --patient denied recent drug use; -utox: +amphetamines, +THC --did not exhibit s/s of withdrawal Cellulitis right foot --h/o 5th metatarsal Ayala fracture in 2016, presented with mild erythema and chronic pain --treated with empiric vanc and ceftriaxone, discharged on PO clinda r/o osteoarthritis --01/14 MRI: old fracture of the base of the fifth metatarsal, possible incomplete healing, underlying chronic osteo cannot be excluded --[facility]patient [facility] with Dr. Gonzáles for bone biopsy Left hallux wound --large dessicated wound --outpatient followup with Dr. Gonzáles Type II IDDM --Levemir 43U qhs --Novolog sliding scale coverage --HgbA1C 9.0 Psoriasis plaques --betamethasone daily Minutes to complete discharge: 35 Discharge Summary Problems reviewed: Yes Reason For Visit: DIABETIC NEUROPATHY Current Active Problems Foot pain, right (Acute) Fracture of fifth metatarsal bone of right foot (Acute) Condition: Stable - Instructions Diet, Activity, Other Instructions: An appointment has been made for you to see Dr. Gonzáles at the [facility] on January 23, at 2:00pm. It is very important you go to this appointment. You may have osteomyolitis (bone infection) in your right foot and you need to have a bone biopsy. Dr. Gonzáles will see you and make these arrangements for you. Two prescriptions have been sent to your pharmacy. One is for clindamycin which is an antibiotic for your foot infection. The other is for a topical ointment for your skin rashes. Take these medications as directed. Return to the emergency department for any new or worsening symptoms. Disposition: HOME - Home Medications Comprehensive Discharge Medication List: Ambulatory Orders Insulin Glargine,Hum.rec.anlog [Robert Yogeshyg U-100] 43 unit SQ HS 01/13/20 Insulin Lispro [Admelog Solostar] 12 units SQ ASDIR 01/13/20 This patient is new to me today: No Emergency Visit: Yes ED Registration Date: 01/13/20 Care time: The patient presented to the Emergency Department on the above date and was hospitalized for further evaluation of their emergent condition. Critical Care patient: No - Discharge Referral Referred to [facility] Med P.C.: No
--- NOTE | 2020-01-15 12:53 | CONSULT ---
Consult Consult Specialty:: Podiatry Reason for Consultation:: Painful red hot swollen foot - History of Present Illness History of Present Illness: Old fracture in tender area 2 years ago that was not treated due to patient non- compliance. - Alcohol/Substance Use Hx Alcohol Use: No - Smoking History Smoking history: Never smoked Have you smoked in the past 12 months: No Aproximately how many cigarettes per day: 0 Home Medications - Allergies Allergies/Adverse Reactions: Allergies Allergy/AdvReac Type Severity Reaction Status Date / Time No Known Allergies Allergy Verified 01/13/20 14:19 - Home Medications Home Medications: Ambulatory Orders Insulin Glargine,Hum.rec.anlog [Basaglar Kwikpen U-100] 43 unit SQ HS 01/13/20 Insulin Lispro [Admelog Solostar] 12 units SQ ASDIR 01/13/20 Betamethasone Valerate [Valisone 0.1% Cream -] 1 applic TP DAILY #1 tube Clindamycin [Cleocin -] 300 mg PO Q6HPO #28 capsule 01/15/20 Physical Exam Vital Signs: Vital Signs Temperature 98.1 F 01/15/20 05:00 Pulse Rate 104 H 01/15/20 05:00 Respiratory Rate 19 01/15/20 05:00 Blood Pressure 144/73 01/15/20 05:00 O2 Sat by Pulse Oximetry (%) 100 01/15/20 06:41 Extremities: Yes: Other (+tender calf right, +erythema right, +edema right, + tender over base of 5th area,) Labs: CBC, BMP 01/15/20 07:15 01/15/20 07:15 Imaging - Results X-ray: Image Reviewed (Fracture started 09/12. Untreated. 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 Gout? Cellulitis Pt is leaving today after venous doppler to r/o dvt. Should follow up in wound care. Discussed with Gilda Toure. Pt has a hx of drug abuse and non compliance. Will follow in [facility].
== END 2020-01-15 13:49 | disposition home or self-care (01) | DRG 383 ==
LOC: FER 14:15 → FM/S 19:40
PROVIDERS: ADMIT Internal Medicine; ATTEND Nurse Practitioner Acute Care
DX: L03.115 Cellulitis of right lower limb (principal); S92.354K Nondisplaced fracture of fifth metatarsal bone, right foot, subsequent encounter for fracture with nonunion; E11.40 Type 2 diabetes mellitus with diabetic neuropathy, unspecified; M19.071 Primary osteoarthritis, right ankle and foot; S91.102A Unspecified open wound of left great toe without damage to nail, initial encounter; M79.671 Pain in right foot; L40.0 Psoriasis vulgaris; F19.10 Other psychoactive substance abuse, uncomplicated; G62.9 Polyneuropathy, unspecified
CPT/HCPCS: 36415; 73630-TC-RT-FY; 73718-TC-RT; 80048; 80053; 80307; 81003; 82962; 83036; 83735; 85025; 85651; 86140; 87040; 87086; 93005; 93971-TC; 97116-GP; 97162-GP; 99285-25; J7030

== ENCOUNTER 2020-01-16 11:57 | Emergency (ER) | payer OTHER ==
[2020-01-16 12:07] VITALS: BP 136/83; PULSE 60; TEMP 98.2; BMI 27.6
--- NOTE | 2020-01-16 12:30 | PDOC ---
History of Present Illness - General Chief Complaint: Edema Stated Complaint: RT FOOT PAIN Time Seen by Provider: 01/16/20 12:30 History Source: Patient - History of Present Illness Initial Comments: 01/16/20 13:51 Mr. Schilling is a 39 y/o man w/hx DM, recent evaluation at [facility] for cellulitis presenting after discharge from [facility] yesterday. He reports being sent from [facility] for a bone biopsy. He was discharged on clindamycin for his R foot cellulitis. He reports that he has been taking the clindamycin as prescribed today. He has a scheduled follow up appointment with podiatry next week. He denies any change in his pain, symptoms, or worsened difficulty ambulating compared to discharge. He denies any fevers, chills, weakness, chest pain, shortness of breath, nausea, vomiting. Past History - Past Medical History Allergies/Adverse Reactions: Allergies Allergy/AdvReac Type Severity Reaction Status Date / Time No Known Allergies Allergy Verified 01/16/20 12:00 Home Medications: Ambulatory Orders Insulin Glargine,Hum.rec.anlog [Basaglar Kwikpen U-100] 43 unit SQ HS 01/13/20 Insulin Lispro [Admelog Solostar] 12 units SQ ASDIR 01/13/20 Betamethasone Valerate [Valisone 0.1% Cream -] 1 applic TP DAILY #1 tube Clindamycin [Cleocin -] 300 mg PO Q6HPO #28 capsule 01/15/20 Anemia: No Asthma: No Cancer: No Cardiac Disorders: No CVA: No COPD: No CHF: No Dementia: No Diabetes: Yes GI Disorders: No Disorders: No HTN: No Hypercholesterolemia: No Kidney Stones: No Liver Disease: No Seizures: No Thyroid Disease: No - Reproductive History Testicular Surgery: No - Immunization History Immunization Up to Date: Yes - Psycho Social/Smoking Cessation Hx Smoking History: Never smoked Have you smoked in the past 12 months: No Number of Cigarettes Smoked Daily: 0 Hx Alcohol Use: No Drug/Substance Use Hx: No Substance Use Type: Cocaine, Heroin, Tranquilizers Hx Substance Use Treatment: Yes Review of Systems - Review of Systems Able to Perform ROS?: Yes Comments:: 01/16/20 14:22 ROS: GENERAL/CONSTITUTIONAL: No fever or chills. No weakness. HEAD, EYES, EARS, NOSE AND THROAT: No change in vision. No ear pain or discharge. No sore throat. CARDIOVASCULAR: No chest pain or shortness of breath RESPIRATORY: No cough, wheezing, or hemoptysis. GASTROINTESTINAL: No nausea, vomiting, diarrhea or constipation. GENITOURINARY: No dysuria, frequency, or change in urination. MUSCULOSKELETAL: R foot pain. No other joint or muscle swelling or pain. No neck or back pain. SKIN: No rash NEUROLOGIC: No headache, vertigo, loss of consciousness, or change in strength/ sensation. ENDOCRINE: No increased thirst. No abnormal weight change HEMATOLOGIC/LYMPHATIC: No anemia, easy bleeding, or history of blood clots. ALLERGIC/IMMUNOLOGIC: No hives or skin allergy. 01/16/20 14:22 *Physical Exam - Vital Signs Last Vital Signs Temp Pulse Resp BP Pulse Ox 98.2 F 60 18 136/83 100 01/16/20 12:02 01/16/20 12:02 01/16/20 12:02 01/16/20 12:02 01/16/20 12:02 - Physical Exam 01/16/20 14:23 PE: GENERAL: Awake, alert, and fully oriented, in no acute distress HEAD: No signs of trauma, normocephalic, atraumatic EYES: PERRLA, EOMI, sclera anicteric, conjunctiva clear ENT: Auricles normal inspection, hearing grossly normal, nares patent, oropharynx clear without exudates. Moist mucosa NECK: Normal ROM, supple, no lymphadenopathy, JVD, or masses LUNGS: No distress, speaks full sentences, clear to auscultation bilaterally HEART: Regular rate and rhythm, normal S1 and S2, no murmurs, rubs or gallops, peripheral pulses normal and equal bilaterally. ABDOMEN: Soft, nontender, normoactive bowel sounds. No guarding, no rebound. No masses EXTREMITIES : R foot cellulitis on dorsolateral aspect of foot, warmth, tenderness to palpation. Otherwise Normal inspection, Normal range of motion, no edema. No clubbing or cyanosis NEUROLOGICAL: Cranial nerves II through XII grossly intact. Normal speech, normal gait with crutches, orthopedic shoe, no focal sensorimotor deficits SKIN: Warm, Dry, normal turgor, no rashes or lesions noted Medical Decision Making - Medical Decision Making 01/16/20 14:18 39M w/hx DM, R foot cellulitis presenting after discharge from [facility]. After reviewing discharge instructions, it appears there was a miscommunication regarding follow up plan. He denies any change in his condition and has been taking his abx as prescribed. Plan for discharge with follow up as scheduled. Discussed with patient who is in agreement. Plan for follow up with wound care, PCP as scheduled. Discharge - Discharge Information Problems reviewed: Yes Clinical Impression/Diagnosis: Cellulitis of foot Condition: Good Disposition: HOME - Admission No - Follow up/Referral Referrals: Karen Yin [Primary Care Provider] - Eliezer Gonzáles DPM [Staff Physician] - - Patient Discharge Instructions Additional Instructions: An appointment has been made for you to see Dr. Gonzáles at the [facility] on January 23, at 2:00pm. It is very important you go to this appointment. You may have osteomyolitis (bone infection) in your right foot and you need to have a bone biopsy. Dr. Gonzáles will see you and make these arrangements for you. Two prescriptions have been sent to your pharmacy. One is for clindamycin which is an antibiotic for your foot infection. The other is for a topical ointment for your skin rashes. Take these medications as directed. Return to the emergency department for any new or worsening symptoms. - Post Discharge Activity
--- NOTE | 2020-01-16 12:51 | PDOC ---
Attending Attestation - Resident Resident Name: TamiLivan - ED Attending Attestation I have performed the following: I have examined & evaluated the patient, The case was reviewed & discussed with the resident, I agree w/resident's findings & plan - HPI HPI: 01/16/20 13:03 39 year old male with a significant PMH of asthma, IDDM, peripheral neuropathy, and polysubstance abuse who presents to the emergency department for R foot pain today, was just admitted last week and dc'd on 01/15/20 with dx' foot cellulitis s/p MRI, s/p abx and currently on clindamycin. no new trauma no f/c, no cp or sob, no abdominal pain, n/v, no paresthesias or weakness. pt thought he was getting bone scan today, but discharge paperwork showed he's to follow with Dr Gonzáles in 1 week at the wound center. - Physicial Exam PE: 01/16/20 13:02 Agree with the resident's HPI and PE as documented in the electronic medical record. NAD, well appearing, EOMI, PERRL, nl conjunctiva, anicteric; neck supple. lungs clear, RRR, abdomen soft nontender. No rebound, no guarding. Back nontender. RAMIREZ x4, no focal neuro deficits. No peripheral edema. normal color for ethnicity , WWP. right lateral foot erythema, +TTP, and swelling 2+ pedal pulses b/l soft compartments 5/5 plantar and dorsiflexion b/l SILT in all extrem. - Medical Decision Making 01/16/20 12:51 Vital Signs Temp Pulse Resp BP Pulse Ox 98.2 F 60 18 136/83 100 01/16/20 12:02 01/16/20 12:02 01/16/20 12:02 01/16/20 12:02 01/16/20 12:02 VS reviewd, wnl. no fever, nontoxic. HD appropriate. prior MRI done on admission: old fx at base of fifth metatarsal bone with cortical thickening, degenerative cysts. soft tissue swelling c/w cellulitis erosive changes at the base of the lateral aspect of 4th metatarsal bone, reactive bone marrow changes, less likely osteomyelitis sx do not appear to be nec fasciitis. pt does not appear bacteremic. no rash. currently on clindamycin while admitted he had several doses of ceftriaxone/vancomycin for empiric coverage. has wound care appt in 1 week at the [facility]. no acute intervention indicated, no systemic findings or sx. had extensive workup on admission last week and dc'd yesterday, after clearance from Dr Gonzáles as well. already on clindamycin now, told to finish course. no further imaging indicated no labs indicated. DC stable condition, instructions given with follow up with podiatry/wound care. area demarcated, c/w treatment for the foot cellulitis. 01/16/20 13:32 01/16/20 13:32
== END 2020-01-16 13:59 | disposition home or self-care (01) ==
LOC: JER 11:57
DX: L03.115 Cellulitis of right lower limb (principal); E10.9 Type 1 diabetes mellitus without complications; Z79.4 Long term (current) use of insulin; G62.9 Polyneuropathy, unspecified; F19.10 Other psychoactive substance abuse, uncomplicated; Z87.09 Personal history of other diseases of the respiratory system
CPT/HCPCS: 99283-25

== ENCOUNTER 2023-07-15 20:12 | Inpatient (IN) | payer OTHER ==
[2023-07-15 20:48] VITALS: BMI 22.4
[2023-07-15] MEDS ORDERED: IBUPROFEN 600 MG TABLET (FP) PO PRN (21:06)
[2023-07-15] MEDS ORDERED: NALOXONE HCL (KLOXXADO) 8 MG SPRAY NS PRN (21:06)
[2023-07-15] MEDS ORDERED: MAGNESIUM HYDROX 2400MG/30ML ORAL SUSPENSION 30 ML CUP PO PRN (21:06)
[2023-07-15] MEDS ORDERED: DICYCLOMINE HCL 10 MG CAPSULE PO PRN (21:06)
[2023-07-15] MEDS ORDERED: BISMUTH SUBSALICYLATE 524 MG/30 ML PO PRN (21:06)
[2023-07-15] MEDS ORDERED: BENZONATATE 200 MG CAPSULE PO PRN (21:06)
[2023-07-15] MEDS ORDERED: ACETAMINOPHEN 325 MG TABLET (FP) PO PRN (21:06)
[2023-07-15] MEDS ORDERED: MAG HYDROX/AL HYDROX/SIMETH 30 ML UNIT-DOSE CUP PO PRN (21:06)
[2023-07-15] MEDS ORDERED: ONDANSETRON *ODT* 4 MG TABLET SL PRN (21:06)
[2023-07-15] MEDS ORDERED: NALOXONE HCL 0.4 MG/ML VIAL IM PRN (21:06)
[2023-07-15] MEDS ORDERED: IBUPROFEN 400 MG TABLET (FP) PO PRN (21:06)
[2023-07-15] MEDS ORDERED: METHOCARBAMOL 500 MG TABLET PO PRN (21:06)
[2023-07-15] MEDS ORDERED: POLYETHYLENE GLYCOL (HEALTHYLAX) 3350 17 GM PACKET PO PRN (21:06)
[2023-07-15] MEDS ORDERED: guaiFENesin 600 MG TABLET.ER (FP) PO PRN (21:06)
[2023-07-15] MEDS ORDERED: hydrOXYzine PAMOATE 25 MG CAPSULE (FP) PO PRN (21:06)
[2023-07-15] MEDS ORDERED: BENZOCAINE/MENTHOL (CHLORASEPTIC ) LOZENGE MM PRN (21:06)
[2023-07-15] MEDS ORDERED: LOPERAMIDE HCL 2 MG CAPSULE PO PRN (21:06)
[2023-07-15] MEDS ORDERED: hydrOXYzine PAMOATE 50 MG CAPSULE (FP) PO ONE (21:13)
[2023-07-15] MEDS ORDERED: hydrOXYzine PAMOATE 25 MG CAPSULE (FP) PO ONE (21:27)
[2023-07-15] MEDS: INSULIN SLIDING SCALE (NOVOLOG) 1 VIAL SQ SCH (21:36)
[2023-07-15] MEDS ORDERED: INSULIN (NOVOLOG) ASPART 100 UNITS/ML 10ML VIAL SQ ONE (21:38)
[2023-07-15] MEDS ORDERED: MELATONIN 5 MG TABLETS ONE (22:17)
[2023-07-15] MEDS: THIAMINE HCL 100 MG TABLET (FP) PO SCH (22:21)
[2023-07-15] MEDS: MELATONIN 5 MG TABLETS PO SCH (22:21)
[2023-07-16] MEDS: INSULIN SLIDING SCALE (NOVOLOG) 1 VIAL SQ SCH ×3 (06:04→17:25)
[2023-07-16] MEDS: PRENATAL VITAMINS W/ FOLIC ACID TABLET (FP) PO SCH (10:29)
[2023-07-16] MEDS ORDERED: INSULIN (NOVOLOG) ASPART 100 UNITS/ML 10ML VIAL SQ ONE (11:37)
[2023-07-16] MEDS ORDERED: LORazepam 2 MG TABLET PO ONE (12:58)
[2023-07-16] MEDS: LORazepam 2 MG TABLET PO SCH ×2 (13:05→13:06)
[2023-07-16 16:04] LABS: HEMATOCRIT 42.8 % (35.4-49); HEMOGLOBIN 14.3 GM/dL (11.7-16.9); MCHC 33.4 g/dl (32.0-35.9); MEAN CELL VOLUME 95.8 fl (80-96); MEAN PLT VOLUME 9.9 fl (7.5-11.1); PLATELET COUNT 203 10^3/uL (134-434); RBC 4.47 M/mm3 (4.00-5.60); RDW 13.7 % (11.9-15.9); WHITE BLOOD COUNT 5.1 K/mm3 (4.0-10.0)
[2023-07-16 16:11] LABS: CHLORIDE 100 mmol/L (98-107); POTASSIUM 5.6 mmol/L (3.5-5.1); SODIUM 135 mmol/L (136-145)
[2023-07-16 16:19] LABS: ANION GAP 6 MMOL/L (8-16); CALCIUM 8.4 mg/dL (8.5-10.1); CO2 29 mmol/L (21-32)
[2023-07-16 16:22] LABS: SGPT/ALT 34 U/L (13-61)
[2023-07-16 16:23] LABS: SGOT/AST 18 U/L (15-37)
[2023-07-16 16:24] LABS: BILIRUBIN,TOTAL 0.8 mg/dL (0.2-1); TOT PROT 5.7 g/dl (6.4-8.2)
[2023-07-16 16:25] LABS: ALK PHOS 107 U/L (45-117)
[2023-07-16 16:27] LABS: GLUCOSE,RANDOM 671 mg/dL (74-106)
[2023-07-16] MEDS: LORazepam 1 MG TABLET PO PRN ×2 (17:45→22:39)
[2023-07-16] MEDS ORDERED: INSULIN (LEVEMIR) 100 UNITS/ML UNITS SQ SCH (22:00)
[2023-07-16] MEDS ORDERED: SUVOREXANT 10 MG TABLET PO PRN (22:00)
[2023-07-16] MEDS: THIAMINE HCL 100 MG TABLET (FP) PO SCH (22:39)
[2023-07-16] MEDS: MELATONIN 5 MG TABLETS PO SCH (22:39)
[2023-07-17] MEDS: LORazepam 1 MG TABLET PO SCH ×2 (05:09→10:45)
[2023-07-17] MEDS: INSULIN SLIDING SCALE (NOVOLOG) 1 VIAL SQ SCH ×2 (07:09→11:04)
[2023-07-17] MEDS: PRENATAL VITAMINS W/ FOLIC ACID TABLET (FP) PO SCH (10:45)
[2023-07-17 12:52] VITALS: BP 125/83; PULSE 81; RESP 17; TEMP 97.8
[2023-07-18] MEDS ORDERED: LORazepam 0.5 MG TABLET PO SCH (05:00)
[2023-07-19] MEDS ORDERED: LORazepam 0.5 MG TABLET PO ONE (05:00)
== END 2023-07-17 16:00 | disposition left against medical advice (07) | DRG 770 ==
LOC: YASAS 20:12 → Y6N 21:52
PROVIDERS: ADMIT Allergy & Immunology; ATTEND Allergy & Immunology
PROC: HZ2ZZZZ Detoxification Services for Substance Abuse Treatment (ICD-10-PCS; principal; 2023-07-15)
DX: F10.230 Alcohol dependence with withdrawal, uncomplicated (principal); F10.280 Alcohol dependence with alcohol-induced anxiety disorder; F10.282 Alcohol dependence with alcohol-induced sleep disorder; E78.5 Hyperlipidemia, unspecified; I10 Essential (primary) hypertension; E10.42 Type 1 diabetes mellitus with diabetic polyneuropathy; Z79.4 Long term (current) use of insulin
CPT/HCPCS: 36415; 80053; 82962; 83036; 85027; 86780; 87635; 87811; 93005; 93010